=== PATIENT | female | born 1960 | race Caucasian/White ===

== ENCOUNTER → 2016-06-03 | Outpatient (CLI) | payer MEDICARE, OTHER ==
[~2016-06-03] MED LIST: /DULO30CA PO; /METH500TA OR; ACET50TAOT PO; ASPI81TA85 PO; BACL5TA PO; BUPR15TA PO; CYCL10TA PO; CYMB1CAP PO; DULO30CA PO; FURO20TA2 PO; GABA-283 PO; GABA300C3 PO; GABA600T3 OR; IBUP400T PO; KLOR1TAB77 PO; LIDO1OIN2 TOP; LIDO5DIS TOP; LIPI20TA OR; LISI10TA4 OR; LISINOPRIL/HCTZ PO; TIZA2CAP3 PO; TOPI200T OR; TRAM50TA2 OR; VITA50003 PO; astepro
--- NOTE | 2016-06-25 01:36 | ECWPNPC ---
PATIENT NAME: KENTON HUTCHINS : 1960 GENDER: FEMALE VISIT DATE: 06/03/2016 DISCHARGE DATE: 06/03/16 1122 VISIT LOCKED DATE TIME: PHYSICIAN: YUMIKO SWARTZ RESOURCE: YUMIKO SWARTZ REASON FOR APPOINTMENT 1. REVIEW X RAY HISTORY OF PRESENT ILLNESS HISTORY OF PRESENT ILLNESS: PAIN THE PATIENT DESCRIBES THE PAIN... FALL RISK SCREENING: SCREENING :NO FALLS IN THE PAST YEAR TODAY'S VISIT: NOTES: IS STILL HAVING SIGNIFICANT PAIN IN RIGHT SHOULDER. TODAY HAVING BACK SPASMS. RATES PAIN TODAY 5-7/10. HAD FALL ON ICE 05/01/17 - LANDED ON RIGHT SHOULDER. . CURRENT MEDICATIONS TAKING CYMBALTA 60 MG CAPSULE DELAYED RELEASE PARTICLES 1 CAPSULE ORALLY ONCE A DAY TAKING GABAPENTIN 600 MG TABLET 1 CAPSULE ORALLY THREE TIMES A DAY TAKING ASPIR-81 81 MG TABLET DELAYED RELEASE 1 TABLET P.O. ONCE A DAY TAKING LISINOPRIL-HYDROCHLOROTHIAZIDE 12.5-10 MG TABLET 1 TABLET ORALLY ONCE A DAY TAKING LIPITOR 10 MG TABLET 1 TABLET ORALLY ONCE A DAY TAKING TOPAMAX 200 200MG TABLET 1 TAB(S) ORAL ONCE A DAY TAKING FUROSEMIDE 20 MG TABLET 1 TABLET ORALLY ONCE A DAY TAKING MONTELUKAST SODIUM 10 MG TABLET 1 TABLET IN THE EVENING ORALLY ONCE A DAY TAKING VENTOLIN HFA 108 (90 BASE) MCG/ACT AEROSOL SOLUTION 2 PUFFS NEEDED INHALATION EVERY 4 HRS TAKING TRAMADOL HCL 50 MG TABLET 1 -2 TABLET NEEDED ORALLY EVERY 6 HRS MDD=6 CODE D CHRONIC PAIN TAKING SOMA 350 MG TABLET 1 TABLET NEEDED ORALLY BEFORE BEDTIME NOT-TAKING BACLOFEN 10 MG TABLET 1 TABLET WITH FOOD OR MILK ORALLY THREE TIMES A DAY NEEDED NOT-TAKING VALIUM 5 MG TABLET 1 TABLET ORALLY TAKE ONE TAB ON ARRIVAL TO CLINIC FOR PROCEDURE MDD=1, NOTES: 0800 NOT-TAKING PERCOCET 5-325 MG TABLET 2 TABLET ORALLY TAKE 2 TABS ON ARRIVAL TO CLINIC FOR PROCEDURE MDD=2, NOTES: 0800 NOT-TAKING LIDOCAINE 5 % OINTMENT 1 APPLICATION TO AFFECTED AREA NEEDED EXTERNALLY THREE TIMES A DAY, NOTES: 2100 NOT-TAKING CUSTOM DO NOT USE TRAMADOL 50 MG TABLET ONE TAB P.O. THREE TIMES A DAY NOT-TAKING PREMARIN 0.625 MG/GM CREAM 1/2 GRAM VAGINAL TWICE WEEKLY NOT-TAKING METROGEL-VAGINAL 0.75 % GEL 1 APPLICATOR FULL AT BEDTIME VAGINAL ONCE A DAY MEDICATION LIST REVIEWED AND RECONCILED WITH THE PATIENT PAST MEDICAL HISTORY DEPRESSION BACK PAIN, INJURY HTN HYPERLIPIDEMIA OBSTRUCTIVE SLEEP APNEA HX OF ENDOMETRIOSIS AND ABNORMAL PAP SMEARS SEASONAL ALLERGIES ALLERGIES N.K.D.A. SOCIAL HISTORY GENERAL: TOBACCO USE ARE YOU A:NONSMOKER LEARNING BARRIERS / SPECIAL NEEDS ORIENTED TO PLAN OF CARE: PATIENT, PAIN MANAGEMENT PATIENT, ORIENTED TO PLAN OF CARE: PATIENT, PAIN MANAGEMENT PATIENT. NEW PATIENT PAIN DIARY TODAY'S VISITNOTES FROM 0-10, WHAT LEVEL IS YOUR PAIN TODAY?0 PAIN CLINIC PFS, CLERGY, PUBLIC HEALTH REFERRALS PFS REFERRAL NEEDED?NO CLERGY REFERRAL NEEDED?NO PUBLIC HEALTH REFERRAL NEEDED?NO WAS THE PROVIDER NOTIFIED OF ANY PERTINENT INFO?NO PFS REFERRAL NEEDED?NO CLERGY REFERRAL NEEDED?NO PUBLIC HEALTH REFERRAL NEEDED?NO WAS THE PROVIDER NOTIFIED OF ANY PERTINENT INFO?NO REVIEW OF SYSTEMS CONSTITUTIONAL: ANY CHANGE IN YOUR MEDICAL CONDITION? NO . CHILLS NO . FEVER NO . INFECTION: DO YOU HAVE NEW INFECTIONS? NO . DO YOU HAVE HISTORY OF MRSA? NO . MUSCULOSKELETAL: ANY NEW PATTERNS OF PAIN OR NUMBNESS? NO . GASTROENTEROLOGY: ANY NEW CHANGE IN BOWEL CONTROL? NO . GENITOURINARY: ANY NEW CHANGE IN BLADDER CONTROL? NO . IS THERE A CHANCE YOU COULD BE ? NO . HEMATOLOGY/LYMPH: DO YOU TAKE ANY BLOOD THINNERS? (FOR EXAMPLE- COUMADIN, PLAVIX, AGGRENOX, PLATEL, PRADAXA, OR XARELTO) NO . WHEN WAS YOUR LAST DOSE? DATE: TIME: . NEUROLOGY: HAVE YOU FALLEN IN THE PAST 6 MONTHS? YES, 05/02 ON ICE, NOT SEEN, HAD MORE PAIN RIGHT ARM FOR DAYS . ANY NEW EXTREMITY NUMBNESS OR WEAKNESS? NO . CARDIOLOGY: DO YOU HAVE A PACEMAKER OR DEFIBRILLATOR? NO . RESPIRATORY: HAVE YOU BEEN SICK IN THE PAST WEEK? NO . FEVER NO . FLU LIKE SYMPTOMS? NO . COUGH NO . INTEGUMENTARY: DO YOU HAVE ANY RASHES OR OPEN SORES? NO . ALLERGIC/IMMUNO: ARE YOU ALLERGIC TO SHELLFISH OR IV DYE? NO . ANY NEW ALLERGIES? NO . PSYCHIATRIC: DO YOU HAVE THOUGHTS OF HURTING YOURSELF OR SOMEONE ELSE? NO . ARE YOU ABUSED, NEGLECTED, OR IN AN UNSAFE ENVIRONMENT? NO . ENDOCRINOLOGY: ARE YOU DIABETIC? NO . OTHER: DO YOU NEED ANY PRESCRIPTIONS? NO . IF YES, PLEASE LIST: ____ . ANY NEW PROBLEMS WITH YOUR MEDICATIONS? NO . WHEN DID YOU LAST EAT? ____ . WHEN DID YOU LAST DRINK? ____ . WHAT DID YOU LAST DRINK? ____ . NAME OF PERSON DRIVING YOU HOME? ____ . DO YOU HAVE ANY OTHER QUESTIONS OR CONCERNS NO . REVIEWED BY: PROVIDER: YUMIKO FULLER . VITAL SIGNS WT 240 LBS, HT 63 IN, BMI 42.51 INDEX, BP 121/72 MM HG, HR 72 /MIN, RR 16 /MIN, TEMP 98.4 F, OXYGEN SAT % 99, REVIEWED BY: AD. EXAMINATION GENERAL EXAMINATION: PSYCHALERT , ORIENTED X 3 , APPROPRIATE MOOD AND AFFECT , ANXIOUS. LUNGS:CLEAR TO AUSCULTATION BILATERALLY. HEART:HEART RATE REGULAR. MUSCULOSKELETAL:MUSCLE STRENGTH TESTING 5/5 LEFT UPPER EXTREMITIES, 4/5 RIGHT UPPER EXTREMITY SECONDARY TO PAIN WITH MOVEMENT. , TRIGGER POINTS:, ELICITED WITH PALPATION OVER CERVICAL SPINOUS PROCESSES AND ACROSS THE TRAPEZIUS MUSCLES BILATERALLY, WELL ALONG THE THORACIC AND LUMBAR PARAVERTEBRAL MUSCLES.. RESTRICTION OF ROM IS NOTED. . JOINTS:RIGHT , SHOULDER , PAIN , AT REST , AND WITH PALPATION OVER RIGHT AC JOINT WITH RADIATION OF PAIN OVER FOREARM TO THUMB AND FIRST FINGER. ASSESSMENTS MYALGIA - M79.1 (PRIMARY) LOW BACK PAIN - M54.5 PAIN IN RIGHT SHOULDER - M25.511 OTHER CHRONIC PAIN - G89.29 TREATMENT MYALGIA START VALIUM TABLET, 5 MG, 1 TABLET NEEDED, ORALLY, TAKE 1 TAB ONE HR BEFORE AND ONE ON ARRIVAL FOR TEST MDD=2, 1 DOSE(S), 2, REFILLS 0 NOTES: FALLS CARE PLAN: 1. RECOMMEND REMOVING ALL THROW RUGS. 2. RECOMMEND NIGHT LIGHTS 3. RECOMMEND WEARING RUBBER SOLED SHOES AND TO NOT GO BAREFOOT. 4.. ADVISED TO CHANGE POSITION SLOWLY FROM SUPINE TO STANDING TO AVOID DIZZINESS. 5. ADVISED TO USE ASSISTIVE DEVICE SUCH CANE OR WALKER 6. USE LIFELINE SERVICES OR KEEP PORTABLE PHONE READILY AVAILABLE, #128 - SCREENING BMI AND F/U PLAN IN : BMI ABOVE NORMAL TODAY. DISCUSSED WITH PATIENT NUTRITIONAL FOOD CHOICES TO ASSIST WITH WEIGHT LOSS. RECCOMMENDED REDUCING SALT, SUGAR, SODA INTAKE. RECOMMEND INCREASE ACTIVITY TO INCLUDE WALKING ON A REGULAR BASIS. PAIN IN RIGHT SHOULDER [facility] SHOULDER W/O [id number],SUSAN M 06/03/2016 11:06:01 AM > DEGENERATIVE CHANGES PER XRAYS - LOSS OF RANGE OF MOTION. RIGHT SHOULDER NOTES: KEEP WALKING. KEEP BUSY. CONTINUE CURRENT MEDS. PROCEDURE CODES FA211 ESTABILISHED PATIENT [facility] CHARGE G8783 BP SCR PRFRM RCMDD DEFIND SCR INTVL G8730 PAIN ASSESS POS TOOL F/U PLAN DOC 3016F PT SCRND UNHLTHY OH USE 1124F ACP DISCUSS-NO DSCNMKR DOCD 1036F TOBACCO NON-USER 0518F FALL PLAN OF CARE DOCD G8427 DOC MEDS VERIFIED W/PT OR RE G8417 BMI >=30 CALCUATE W/FOLLOWUP 3288F FALL RISK ASSESSMENT DOCD DISPOSITION & COMMUNICATION FOLLOW UP 1 MONTH (REASON: NEEDS AUTH FOR RIGHT SHOULDER MRI) ELECTRONICALLY SIGNED BY MILLER HAGER ON 06/23/2016 AT 06:59 PM EST DISCLAIMER : THIS IS A VISIT SUMMARY EXTRACTED FROM THE [employer] CHART. IT IS NOT A COPY OF THE [employer] PROGRESS NOTE. MTDKimberly
== END ==
LOC: M PAIN 09:40
PROVIDERS: ATTEND Nurse Practitioner Family
DX: Z09 Encounter for follow-up examination after completed treatment for conditions other than malignant neoplasm (principal); G89.29 Other chronic pain; M79.1 Myalgia; M54.5 Low back pain; M25.511 Pain in right shoulder; F32.9 Major depressive disorder, single episode, unspecified; I10 Essential (primary) hypertension; E78.5 Hyperlipidemia, unspecified; G47.33 Obstructive sleep apnea (adult) (pediatric); J30.2 Other seasonal allergic rhinitis; Z79.82 Long term (current) use of aspirin; Z79.891 Long term (current) use of opiate analgesic; Z79.899 Other long term (current) drug therapy

== ENCOUNTER → 2016-07-07 | Outpatient (CLI) | payer MEDICARE ==
[2016-07-07 09:22] LABS: BASO % 1.2 % (0.0-1.0); EOS # 0.1 K/mm3 (0.0-0.50); EOS % 3.1 % (0.0-3.0); LYMPH # 1.3 K/mm3 (1.5-4.5); LYMPH % 27.6 % (24.0-44.0); MEAN CORPUSCULAR HGB CONC 32.8 g/dl (32.0-36.5); MEAN CORPUSCULAR VOLUME 88.2 fl (80.0-96.0); MONO # 0.4 K/mm3 (0.0-0.8); MONO % 8.2 % (0.0-5.0); NEUTROPHILS # 2.6 K/mm3 (1.8-7.7); NEUTROPHILS % 56.2 % (36.0-66.0); RED CELL DISTRIBUTION WIDTH 13.6 % (11.5-14.5); WHITE BLOOD COUNT 4.7 K/mm3 (4.0-10.0)
[2016-07-07 10:04] LABS: ALBUMIN 3.8 GM/DL (3.2-5.2); ALBUMIN/GLOBULIN RATIO 1.09 (1.00-1.93); BILIRUBIN,TOTAL 0.3 MG/DL (0.2-1.0); CALCIUM LEVEL 8.9 MG/DL (8.5-10.1); CREATININE FOR GFR 1.35 MG/DL (0.55-1.02); FREE T4 0.99 NG/DL (0.76-1.46); GLOMERULAR FILTRATION RATE 43.2 (>51); POTASSIUM SERUM 3.6 MEQ/L (3.5-5.1); TOTAL PROTEIN 7.3 GM/DL (6.4-8.2)
== END ==
LOC: M LAB 08:20
PROVIDERS: ATTEND Nurse Practitioner Adult Health
DX: E55.9 Vitamin D deficiency, unspecified (principal); E78.00 Pure hypercholesterolemia, unspecified; F41.9 Anxiety disorder, unspecified; Z79.899 Other long term (current) drug therapy

== ENCOUNTER → 2016-07-11 | Outpatient (CLI) | payer MEDICARE ==
--- NOTE | 2016-07-18 01:10 | ECWPNPC ---
PATIENT NAME: KENTON HUTCHINS : 1960 GENDER: FEMALE VISIT DATE: 07/11/2016 DISCHARGE DATE: 07/11/16 1050 VISIT LOCKED DATE TIME: PHYSICIAN: YUMIKO SWARTZ RESOURCE: YUMIKO SWARTZ REASON FOR APPOINTMENT 1. POST PROCEDURE, R SHOULDER HISTORY OF PRESENT ILLNESS HISTORY OF PRESENT ILLNESS: PAIN THE PATIENT DESCRIBES THE PAIN... FALL RISK SCREENING: SCREENING :NO FALLS IN THE PAST YEAR TODAY'S VISIT: NOTES: RATES PAIN TODAY 5-7/10. DESCRIBES PAIN CONSTANT, ACHING, SHARP AND STABBING, TENDER AND THROBBING. PAIN IS CENTERED AT BASE OF NECK WITH RADIATING TO RIGHT ARM TO HAND. PAIN IS ALSO CENTERD IN LOW BACK WITH RADIATION TO RIGHT LEG TO LEVEL OF FOOT. . CURRENT MEDICATIONS TAKING CYMBALTA 60 MG CAPSULE DELAYED RELEASE PARTICLES 1 CAPSULE ORALLY ONCE A DAY TAKING GABAPENTIN 600 MG TABLET 1 CAPSULE ORALLY THREE TIMES A DAY TAKING ASPIR-81 81 MG TABLET DELAYED RELEASE 1 TABLET P.O. ONCE A DAY TAKING LISINOPRIL-HYDROCHLOROTHIAZIDE 12.5-10 MG TABLET 1 TABLET ORALLY ONCE A DAY TAKING LIPITOR 10 MG TABLET 1 TABLET ORALLY ONCE A DAY TAKING TOPAMAX 200 200MG TABLET 1 TAB(S) ORAL ONCE A DAY TAKING FUROSEMIDE 20 MG TABLET 1 TABLET ORALLY ONCE A DAY TAKING MONTELUKAST SODIUM 10 MG TABLET 1 TABLET IN THE EVENING ORALLY ONCE A DAY TAKING VENTOLIN HFA 108 (90 BASE) MCG/ACT AEROSOL SOLUTION 2 PUFFS NEEDED INHALATION EVERY 4 HRS TAKING TRAMADOL HCL 50 MG TABLET 1 -2 TABLET NEEDED ORALLY EVERY 6 HRS MDD=6 CODE D CHRONIC PAIN TAKING SOMA 350 MG TABLET 1 TABLET NEEDED ORALLY BEFORE BEDTIME TAKING VALIUM 5 MG TABLET 1 TABLET NEEDED ORALLY TAKE 1 TAB ONE HR BEFORE AND ONE ON ARRIVAL FOR TEST MDD=2 NOT-TAKING BACLOFEN 10 MG TABLET 1 TABLET WITH FOOD OR MILK ORALLY THREE TIMES A DAY NEEDED NOT-TAKING VALIUM 5 MG TABLET 1 TABLET ORALLY TAKE ONE TAB ON ARRIVAL TO CLINIC FOR PROCEDURE MDD=1, NOTES: 0800 NOT-TAKING PERCOCET 5-325 MG TABLET 2 TABLET ORALLY TAKE 2 TABS ON ARRIVAL TO CLINIC FOR PROCEDURE MDD=2, NOTES: 0800 NOT-TAKING LIDOCAINE 5 % OINTMENT 1 APPLICATION TO AFFECTED AREA NEEDED EXTERNALLY THREE TIMES A DAY, NOTES: 2100 NOT-TAKING CUSTOM DO NOT USE TRAMADOL 50 MG TABLET ONE TAB P.O. THREE TIMES A DAY NOT-TAKING PREMARIN 0.625 MG/GM CREAM 1/2 GRAM VAGINAL TWICE WEEKLY NOT-TAKING METROGEL-VAGINAL 0.75 % GEL 1 APPLICATOR FULL AT BEDTIME VAGINAL ONCE A DAY MEDICATION LIST REVIEWED AND RECONCILED WITH THE PATIENT PAST MEDICAL HISTORY DEPRESSION BACK PAIN, INJURY HTN HYPERLIPIDEMIA OBSTRUCTIVE SLEEP APNEA HX OF ENDOMETRIOSIS AND ABNORMAL PAP SMEARS SEASONAL ALLERGIES ALLERGIES N.K.D.A. SOCIAL HISTORY GENERAL: TOBACCO USE ARE YOU A:NONSMOKER LEARNING BARRIERS / SPECIAL NEEDS ORIENTED TO PLAN OF CARE: PATIENT, PAIN MANAGEMENT PATIENT, ORIENTED TO PLAN OF CARE: PATIENT, PAIN MANAGEMENT PATIENT. NEW PATIENT PAIN DIARY TODAY'S VISITNOTES FROM 0-10, WHAT LEVEL IS YOUR PAIN TODAY?0 PAIN CLINIC PFS, CLERGY, PUBLIC HEALTH REFERRALS PFS REFERRAL NEEDED?NO CLERGY REFERRAL NEEDED?NO PUBLIC HEALTH REFERRAL NEEDED?NO WAS THE PROVIDER NOTIFIED OF ANY PERTINENT INFO?NO PFS REFERRAL NEEDED?NO CLERGY REFERRAL NEEDED?NO PUBLIC HEALTH REFERRAL NEEDED?NO WAS THE PROVIDER NOTIFIED OF ANY PERTINENT INFO?NO REVIEW OF SYSTEMS CONSTITUTIONAL: ANY CHANGE IN YOUR MEDICAL CONDITION? NO . CHILLS NO . FEVER NO . INFECTION: DO YOU HAVE NEW INFECTIONS? RECENT SINUS INFECTION - . DO YOU HAVE HISTORY OF MRSA? NO . MUSCULOSKELETAL: ANY NEW PATTERNS OF PAIN OR NUMBNESS? NO . GASTROENTEROLOGY: ANY NEW CHANGE IN BOWEL CONTROL? NO . GENITOURINARY: ANY NEW CHANGE IN BLADDER CONTROL? NO . IS THERE A CHANCE YOU COULD BE ? NO . HEMATOLOGY/LYMPH: DO YOU TAKE ANY BLOOD THINNERS? (FOR EXAMPLE- COUMADIN, PLAVIX, AGGRENOX, PLATEL, PRADAXA, OR XARELTO) NO . WHEN WAS YOUR LAST DOSE? DATE: TIME: . NEUROLOGY: HAVE YOU FALLEN IN THE PAST 6 MONTHS? NO . ANY NEW EXTREMITY NUMBNESS OR WEAKNESS? NO . CARDIOLOGY: DO YOU HAVE A PACEMAKER OR DEFIBRILLATOR? NO . RESPIRATORY: HAVE YOU BEEN SICK IN THE PAST WEEK? NO . FEVER NO . FLU LIKE SYMPTOMS? NO . COUGH NO . INTEGUMENTARY: DO YOU HAVE ANY RASHES OR OPEN SORES? NO . ALLERGIC/IMMUNO: ARE YOU ALLERGIC TO SHELLFISH OR IV DYE? NO . ANY NEW ALLERGIES? NO . PSYCHIATRIC: DO YOU HAVE THOUGHTS OF HURTING YOURSELF OR SOMEONE ELSE? NO . ARE YOU ABUSED, NEGLECTED, OR IN AN UNSAFE ENVIRONMENT? NO . ENDOCRINOLOGY: ARE YOU DIABETIC? NO . OTHER: DO YOU NEED ANY PRESCRIPTIONS? YES . IF YES, PLEASE LIST: TRAMADOL . ANY NEW PROBLEMS WITH YOUR MEDICATIONS? NO . WHEN DID YOU LAST EAT? ____ . WHEN DID YOU LAST DRINK? ____ . WHAT DID YOU LAST DRINK? ____ . NAME OF PERSON DRIVING YOU HOME? ____ . DO YOU HAVE ANY OTHER QUESTIONS OR CONCERNS NO . REVIEWED BY: PROVIDER: YUMIKO FULLER . VITAL SIGNS WT 239.2 LBS, HT 63 IN, BMI 42.37 INDEX, BP 138/71 MM HG, HR 75 /MIN, RR 16 /MIN, TEMP 97.8 F, OXYGEN SAT % 96%, NA INITIALS SC 10:21, REVIEWED BY: DANNY. EXAMINATION GENERAL EXAMINATION: PSYCHALERT , ORIENTED X 3 , APPROPRIATE MOOD AND AFFECT , ANXIOUS. LUNGS:CLEAR TO AUSCULTATION BILATERALLY. HEART:HEART RATE REGULAR. MUSCULOSKELETAL:MUSCLE STRENGTH TESTING 5/5 LEFT UPPER EXTREMITIES, 4/5 RIGHT UPPER EXTREMITY SECONDARY TO PAIN WITH MOVEMENT. , TRIGGER POINTS:, ELICITED WITH PALPATION OVER CERVICAL SPINOUS PROCESSES AND ACROSS THE TRAPEZIUS MUSCLES BILATERALLY, WELL ALONG THE THORACIC AND LUMBAR PARAVERTEBRAL MUSCLES.. RESTRICTION OF ROM IS NOTED. . JOINTS:RIGHT , SHOULDER , PAIN , AT REST , AND WITH PALPATION OVER RIGHT AC JOINT WITH RADIATION OF PAIN OVER FOREARM TO THUMB AND FIRST FINGER. ASSESSMENTS MYALGIA - M79.1 (PRIMARY) LOW BACK PAIN - M54.5 PAIN IN RIGHT SHOULDER - M25.511 OTHER CHRONIC PAIN - G89.29 TREATMENT MYALGIA REFILL TRAMADOL HCL TABLET, 50 MG, 1 -2 TABLET NEEDED, ORALLY, EVERY 6 HRS MDD=6 CODE D CHRONIC PAIN, 90 DAYS, 540, REFILLS 0 NOTES: TAKE SOMA ONLY IF HAVING SEVERE SPASM. START PHYSICAL THERAPY FOR RIGHT SHOULDER. CLINICAL NOTES: ISTOP REGISTRY REVIEWED AND DEMNOSTRATES COMPLLIANCE. BRINGS IN MEDICATIONS WHICH IS APPROPRIATE FOR WHAT WAS DISPENSED. [facility] REASON:RT SHOULDER BONE SPURS, PARTIAL TEAR OF RIGHT SUPRASPINATUS TENDON PROCEDURE CODES FA211 ESTABILISHED PATIENT [facility] CHARGE DISPOSITION & COMMUNICATION FOLLOW UP 1 MONTH - HAS TPI SCHEDULED FOR NEXT WEEK ELECTRONICALLY SIGNED BY MILLER HAGER ON 07/14/2016 AT 09:07 AM EDT DISCLAIMER : THIS IS A VISIT SUMMARY EXTRACTED FROM THE [employer] CHART. IT IS NOT A COPY OF THE [employer] PROGRESS NOTE. ALBAN
== END ==
LOC: M PAIN 10:00
PROVIDERS: ATTEND Nurse Practitioner Family
DX: Z09 Encounter for follow-up examination after completed treatment for conditions other than malignant neoplasm (principal); G89.29 Other chronic pain; M79.1 Myalgia; M54.5 Low back pain; M54.2 Cervicalgia; M25.511 Pain in right shoulder; F32.9 Major depressive disorder, single episode, unspecified; I10 Essential (primary) hypertension; E78.5 Hyperlipidemia, unspecified; G47.33 Obstructive sleep apnea (adult) (pediatric); J30.2 Other seasonal allergic rhinitis; Z79.82 Long term (current) use of aspirin; Z79.891 Long term (current) use of opiate analgesic; Z79.899 Other long term (current) drug therapy

== ENCOUNTER → 2016-07-14 | Outpatient (CLI) | payer MEDICARE ==
[~2016-07-14] MED LIST changes: +BUPIVACAINE HCL 0.25% 10 ML VIAL As Ordered ONE; +BUPIVACAINE HCL 0.25% 30 ML VIAL As Ordered ONE; +TRIAMCINOLONE ACETONIDE SUSP 40 MG/ML VIAL (J3301) As Ordered ONE
--- NOTE | 2016-07-19 23:25 | ECWPNPC ---
PATIENT NAME: KENTON HUTCHINS : 1960 GENDER: FEMALE VISIT DATE: 07/14/2016 DISCHARGE DATE: 07/14/16 1209 VISIT LOCKED DATE TIME: PHYSICIAN: SUSU REED RESOURCE: SUSU REED REASON FOR APPOINTMENT 1. R SHOULDER INJ CURRENT MEDICATIONS TAKING CYMBALTA 60 MG CAPSULE DELAYED RELEASE PARTICLES 1 CAPSULE ORALLY ONCE A DAY, NOTES: 07-14-16699 TAKING GABAPENTIN 600 MG TABLET 1 CAPSULE ORALLY THREE TIMES A DAY, NOTES: 07-14-16699 TAKING ASPIR-81 81 MG TABLET DELAYED RELEASE 1 TABLET P.O. ONCE A DAY, NOTES: 07-14-16699 TAKING LISINOPRIL-HYDROCHLOROTHIAZIDE 12.5-10 MG TABLET 1 TABLET ORALLY ONCE A DAY, NOTES: 07-13-162199 TAKING LIPITOR 10 MG TABLET 1 TABLET ORALLY ONCE A DAY, NOTES: 07-13-162199 TAKING TOPAMAX 200 200MG TABLET 1 TAB(S) ORAL ONCE A DAY, NOTES: 07-13-16 TAKING FUROSEMIDE 20 MG TABLET 1 TABLET ORALLY ONCE A DAY, NOTES: 07-13-162199 TAKING MONTELUKAST SODIUM 10 MG TABLET 1 TABLET IN THE EVENING ORALLY ONCE A DAY, NOTES: [id number] TAKING VENTOLIN HFA 108 (90 BASE) MCG/ACT AEROSOL SOLUTION 2 PUFFS NEEDED INHALATION EVERY 4 HRS, NOTES: 07-11-162199 TAKING SOMA 350 MG TABLET 1 TABLET NEEDED ORALLY BEFORE BEDTIME, NOTES: 07-11-16 09 TAKING VALIUM 5 MG TABLET 1 TABLET NEEDED ORALLY TAKE 1 TAB ONE HR BEFORE AND ONE ON ARRIVAL FOR TEST MDD=2, NOTES: 07-11 TAKING TRAMADOL HCL 50 MG TABLET 1 -2 TABLET NEEDED ORALLY EVERY 6 HRS MDD=6 CODE D CHRONIC PAIN, NOTES: 07-13-162199 NOT-TAKING BACLOFEN 10 MG TABLET 1 TABLET WITH FOOD OR MILK ORALLY THREE TIMES A DAY NEEDED NOT-TAKING VALIUM 5 MG TABLET 1 TABLET ORALLY TAKE ONE TAB ON ARRIVAL TO CLINIC FOR PROCEDURE MDD=1, NOTES: 0800 NOT-TAKING PERCOCET 5-325 MG TABLET 2 TABLET ORALLY TAKE 2 TABS ON ARRIVAL TO CLINIC FOR PROCEDURE MDD=2, NOTES: 0800 NOT-TAKING LIDOCAINE 5 % OINTMENT 1 APPLICATION TO AFFECTED AREA NEEDED EXTERNALLY THREE TIMES A DAY, NOTES: 2100 NOT-TAKING CUSTOM DO NOT USE TRAMADOL 50 MG TABLET ONE TAB P.O. THREE TIMES A DAY NOT-TAKING PREMARIN 0.625 MG/GM CREAM 1/2 GRAM VAGINAL TWICE WEEKLY NOT-TAKING METROGEL-VAGINAL 0.75 % GEL 1 APPLICATOR FULL AT BEDTIME VAGINAL ONCE A DAY MEDICATION LIST REVIEWED AND RECONCILED WITH THE PATIENT PAST MEDICAL HISTORY DEPRESSION BACK PAIN, INJURY HTN HYPERLIPIDEMIA OBSTRUCTIVE SLEEP APNEA HX OF ENDOMETRIOSIS AND ABNORMAL PAP SMEARS SEASONAL ALLERGIES VITAL SIGNS WT 239.0 LBS, HT 63 IN, BMI 42.33 INDEX, BP 113/58 MM HG, HR 76 /MIN, RR 18 /MIN, TEMP 96.7 F, OXYGEN SAT % 98, NA INITIALS TL 1052, REVIEWED BY: KG. ASSESSMENTS MYALGIA - M79.1 (PRIMARY) PROCEDURES PN TRIGGER POINT INJECTION WITH STEROIDS PRE PROCEDURE DIAGNOSIS 1. MYALGIA 2. PAIN AT RIGHT SHOULDER AREA AND RIGHT THORACIC AREA POST PROCEDURE DIAGNOSIS 1. MYALGIA 2. PAIN AT RIGHT SHOULDER AREA AND RIGHT THORACIC AREA PROCEDURE TRIGGER POINT INJECTION AT RIGHT SHOULDER AREA AND RIGHT THORACIC AREA SURGEON DR. 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 I EVALUATE THE PATIENT AND REVIEWED THE CHART. THERE IS EVIDENCE OF BANDS OF TISSUE WITH RESTRICTION OF MOVEMENT AND PRESENCE OF TRIGGER POINT AT THE AFFECTED AREA. I WENT OVER THE RISKS, ALTERNATIVES, AND BENEFITS ASSOCIATED WITH THIS PROCEDURE. THE PATIENT WOULD LIKE TO PROCEED AND GIVE CONSENT TO PERFORMED THE PROCEDURE. THE PATIENT DENIES UNEXPLAINABLE WEIGHT LOSS, FEVER, CHILLS, OR NEW CHANGES IN URINARY OR BOWEL CONTROL DESCRIPTION OF PROCEDURE THE PATIENT WAS BROUGHT TO THE PROCEDURE ROOM AND PLACED IN THE SITTING POSITION. THE AREA WAS CLEANED WITH ALCOHOL. THE PROCEDURE WAS DONE USING ASEPTIC STERILE TECHNIQUE. I CHECKED LATERALITY AND THE LEVEL WHERE THE PROCEDURE WAS GOING TO BE PERFORMED WITH THE PATIENT AND THE SUPPORTING STAFF AT THE MOMENT OF THE TIME OUT IN THE PROCEDURE ROOM. USING A 25-GAUGE NEEDLE, TRIGGER POINTS WERE INJECTED AT THE RIGHT SHOULDER AREA AND RIGHT THORACIC AREA WITH A TOTAL OF 40 ML OF BUPIVACAINE 0.25% AND KENALOG 40 MG. THERE WAS NO EVIDENCE OF BLOOD, PARESTHESIA OR CEREBROSPINAL FLUID DURING THE PROCEDURE. THE PATIENT WAS SENT TO THE RECOVERY ROOM. THE PATIENT WAS MOVING THE EXTREMITIES AND DOING WELL. THERE WAS NO COMPLICATION DURING THE PROCEDURE POST PROCEDURE NOTE THE PATIENT WILL BE SEEN IN A FOLLOW UP IN THE NEXT FEW WEEKS. INSTRUCTIONS WERE GIVEN, QUESTIONS WERE ANSWERED, AND THE PATIENT EXPRESSED UNDERSTANDING AND AGREES WITH THE PLAN. I, JULIANNA DENTON, DOCUMENTED THE ABOVE INFORMATION ACTING A SCRIBE FOR DR. REED. I HAVE REVIEWED THE ABOVE DOCUMENT, WRITTEN BY JULIANNA KOHLER AND I VERIFY THAT IT IS ACCURATE PROCEDURE CODES 85935 INJ TRIGGER POINT / MUSC DISPOSITION & COMMUNICATION FOLLOW UP 3 WEEKS ELECTRONICALLY SIGNED BY SUSU REED MD ON 07/19/2016 AT 09:49 PM EDT DISCLAIMER : THIS IS A VISIT SUMMARY EXTRACTED FROM THE [employer] CHART. IT IS NOT A COPY OF THE [employer] PROGRESS NOTE. ALBAN
== END ==
LOC: M PAIN 11:00
PROVIDERS: ATTEND Anesthesiology
DX: G89.29 Other chronic pain (principal); M79.1 Myalgia; M25.511 Pain in right shoulder; M54.6 Pain in thoracic spine; F32.9 Major depressive disorder, single episode, unspecified; I10 Essential (primary) hypertension; E78.5 Hyperlipidemia, unspecified; G47.33 Obstructive sleep apnea (adult) (pediatric); J30.89 Other allergic rhinitis; Z79.82 Long term (current) use of aspirin; Z79.891 Long term (current) use of opiate analgesic; Z79.899 Other long term (current) drug therapy
CPT/HCPCS: 20552; J3301

== ENCOUNTER 2016-07-30 12:15 | Outpatient (RCR) | payer MEDICARE ==
[~2016-07-30 12:15] MED LIST changes: -BUPIVACAINE HCL 0.25% 10 ML VIAL As Ordered ONE; -BUPIVACAINE HCL 0.25% 30 ML VIAL As Ordered ONE; -TRIAMCINOLONE ACETONIDE SUSP 40 MG/ML VIAL (J3301) As Ordered ONE
== END 2016-08-01 ==
LOC: M PT 12:15
PROVIDERS: ATTEND Nurse Practitioner Family
DX: Z51.89 Encounter for other specified aftercare (principal); M25.511 Pain in right shoulder
CPT/HCPCS: 97110; 97162; G8981; G8982

== ENCOUNTER 2016-08-20 12:44 | Outpatient (RCR) | payer MEDICARE ==
[~2016-08-20 12:44] MED LIST changes: +GABA-282 PO; -GABA300C3 PO
== END 2016-08-31 ==
LOC: M PT 12:44
PROVIDERS: ATTEND Nurse Practitioner Family
DX: Z51.89 Encounter for other specified aftercare (principal); M25.511 Pain in right shoulder; M54.5 Low back pain; M79.1 Myalgia; M75.41 Impingement syndrome of right shoulder
CPT/HCPCS: 97110; G8985; G8986

== ENCOUNTER → 2016-08-22 | Outpatient (CLI) | payer MEDICARE ==
--- NOTE | 2016-09-06 00:31 | ECWPNPC ---
PATIENT NAME: KENTON HUTCHINS : 1960 GENDER: FEMALE VISIT DATE: 08/22/2016 DISCHARGE DATE: 08/22/16 1523 VISIT LOCKED DATE TIME: PHYSICIAN: YUMIKO SWARTZ RESOURCE: YUMIKO SWARTZ REASON FOR APPOINTMENT 1. R SHOULDER HISTORY OF PRESENT ILLNESS HISTORY OF PRESENT ILLNESS: PAIN THE PATIENT DESCRIBES THE PAIN... FALL RISK SCREENING: SCREENING :NO FALLS IN THE PAST YEAR TODAY'S VISIT: NOTES: RATES PAIN TODAY -11/10 IS S/P TPI TO SHOULDER AREA WITH STEROIDS ON 07/14/16. NOTES IMPROVEMENTS IN MOVEMENT. IS ATTENDING PHYSICAL THERAPY. HAS IMPROVED ROM HAS FALLEN X 2. . CURRENT MEDICATIONS TAKING CYMBALTA 60 MG CAPSULE DELAYED RELEASE PARTICLES 1 CAPSULE ORALLY ONCE A DAY TAKING GABAPENTIN 600 MG TABLET 1 CAPSULE ORALLY THREE TIMES A DAY TAKING ASPIR-81 81 MG TABLET DELAYED RELEASE 1 TABLET P.O. ONCE A DAY TAKING LISINOPRIL-HYDROCHLOROTHIAZIDE 12.5-10 MG TABLET 1 TABLET ORALLY ONCE A DAY TAKING LIPITOR 10 MG TABLET 1 TABLET ORALLY ONCE A DAY TAKING TOPAMAX 200 200MG TABLET 1 TAB(S) ORAL ONCE A DAY TAKING FUROSEMIDE 20 MG TABLET 1 TABLET ORALLY ONCE A DAY TAKING MONTELUKAST SODIUM 10 MG TABLET 1 TABLET IN THE EVENING ORALLY ONCE A DAY TAKING VENTOLIN HFA 108 (90 BASE) MCG/ACT AEROSOL SOLUTION 2 PUFFS NEEDED INHALATION EVERY 4 HRS TAKING SOMA 350 MG TABLET 1 TABLET NEEDED ORALLY BEFORE BEDTIME TAKING VALIUM 5 MG TABLET 1 TABLET NEEDED ORALLY TAKE 1 TAB ONE HR BEFORE AND ONE ON ARRIVAL FOR TEST MDD=2 TAKING TRAMADOL HCL 50 MG TABLET 1 -2 TABLET NEEDED ORALLY EVERY 6 HRS MDD=6 CODE D CHRONIC PAIN NOT-TAKING BACLOFEN 10 MG TABLET 1 TABLET WITH FOOD OR MILK ORALLY THREE TIMES A DAY NEEDED NOT-TAKING VALIUM 5 MG TABLET 1 TABLET ORALLY TAKE ONE TAB ON ARRIVAL TO CLINIC FOR PROCEDURE MDD=1, NOTES: 0800 NOT-TAKING PERCOCET 5-325 MG TABLET 2 TABLET ORALLY TAKE 2 TABS ON ARRIVAL TO CLINIC FOR PROCEDURE MDD=2, NOTES: 0800 NOT-TAKING LIDOCAINE 5 % OINTMENT 1 APPLICATION TO AFFECTED AREA NEEDED EXTERNALLY THREE TIMES A DAY, NOTES: 2100 NOT-TAKING CUSTOM DO NOT USE TRAMADOL 50 MG TABLET ONE TAB P.O. THREE TIMES A DAY NOT-TAKING PREMARIN 0.625 MG/GM CREAM 1/2 GRAM VAGINAL TWICE WEEKLY NOT-TAKING METROGEL-VAGINAL 0.75 % GEL 1 APPLICATOR FULL AT BEDTIME VAGINAL ONCE A DAY MEDICATION LIST REVIEWED AND RECONCILED WITH THE PATIENT PAST MEDICAL HISTORY DEPRESSION BACK PAIN, INJURY HTN HYPERLIPIDEMIA OBSTRUCTIVE SLEEP APNEA HX OF ENDOMETRIOSIS AND ABNORMAL PAP SMEARS SEASONAL ALLERGIES ALLERGIES N.K.D.A. SOCIAL HISTORY GENERAL: PAIN CLINIC PFS, CLERGY, PUBLIC HEALTH REFERRALS CLERGY REFERRAL NEEDED?NO WAS THE PROVIDER NOTIFIED OF ANY PERTINENT INFO?NO PFS REFERRAL NEEDED?NO PUBLIC HEALTH REFERRAL NEEDED?NO PATIENT: ____. REVIEW OF SYSTEMS CONSTITUTIONAL: ANY CHANGE IN YOUR MEDICAL CONDITION? NO . CHILLS NO . FEVER NO . INFECTION: DO YOU HAVE NEW INFECTIONS? NO . DO YOU HAVE HISTORY OF MRSA? NO . MUSCULOSKELETAL: ANY NEW PATTERNS OF PAIN OR NUMBNESS? NO . GASTROENTEROLOGY: ANY NEW CHANGE IN BOWEL CONTROL? NO . GENITOURINARY: ANY NEW CHANGE IN BLADDER CONTROL? NO . IS THERE A CHANCE YOU COULD BE ? NO . HEMATOLOGY/LYMPH: DO YOU TAKE ANY BLOOD THINNERS? (FOR EXAMPLE- COUMADIN, PLAVIX, AGGRENOX, PLATEL, PRADAXA, OR XARELTO) NO . WHEN WAS YOUR LAST DOSE? DATE: TIME: . NEUROLOGY: HAVE YOU FALLEN IN THE PAST 6 MONTHS? YES, TWICE--FELL DOWN [facility] 08/01, 2ND TIME JUST LOST BALANCE. WAS ECCHYMOTIC ON LEFT SIDE. . ANY NEW EXTREMITY NUMBNESS OR WEAKNESS? NO . CARDIOLOGY: DO YOU HAVE A PACEMAKER OR DEFIBRILLATOR? NO . RESPIRATORY: HAVE YOU BEEN SICK IN THE PAST WEEK? NO . FEVER NO . FLU LIKE SYMPTOMS? NO . COUGH NO . INTEGUMENTARY: DO YOU HAVE ANY RASHES OR OPEN SORES? NO . ALLERGIC/IMMUNO: ARE YOU ALLERGIC TO SHELLFISH OR IV DYE? NO . ANY NEW ALLERGIES? NO . PSYCHIATRIC: DO YOU HAVE THOUGHTS OF HURTING YOURSELF OR SOMEONE ELSE? NO . ARE YOU ABUSED, NEGLECTED, OR IN AN UNSAFE ENVIRONMENT? NO . ENDOCRINOLOGY: ARE YOU DIABETIC? NO . OTHER: DO YOU NEED ANY PRESCRIPTIONS? NO . IF YES, PLEASE LIST: ____ . ANY NEW PROBLEMS WITH YOUR MEDICATIONS? NO . WHEN DID YOU LAST EAT? ____ . WHEN DID YOU LAST DRINK? ____ . WHAT DID YOU LAST DRINK? ____ . NAME OF PERSON DRIVING YOU HOME? ____ . DO YOU HAVE ANY OTHER QUESTIONS OR CONCERNS NO . REVIEWED BY: PROVIDER: YUMIKO FULLER . VITAL SIGNS WT 238.2 LBS, HT 63 IN, BMI 42.19 INDEX, BP 135/68 MM HG, HR 78 /MIN, RR 16 /MIN, TEMP 97.7 F, OXYGEN SAT % 97%, NA INITIALS SC 14:29, REVIEWED BY: AD. EXAMINATION GENERAL EXAMINATION: PSYCHALERT , ORIENTED X 3 , APPROPRIATE MOOD AND AFFECT , ANXIOUS. LUNGS:CLEAR TO AUSCULTATION BILATERALLY. HEART:HEART RATE REGULAR. MUSCULOSKELETAL:MUSCLE STRENGTH TESTING 5/5 LEFT UPPER EXTREMITIES, 5-/5 RIGHT UPPER EXTREMITY SECONDARY TO PAIN WITH MOVEMENT. , TRIGGER POINTS:, ELICITED WITH PALPATION OVER CERVICAL SPINOUS PROCESSES AND ACROSS THE TRAPEZIUS MUSCLES BILATERALLY, WELL ALONG THE THORACIC AND LUMBAR PARAVERTEBRAL MUSCLES.. . JOINTS:RIGHT , SHOULDER , PAIN , AT REST , AND WITH PALPATION OVER RIGHT AC JOINT . AABLE TO ABDUCT RIGHT ARM TO 90 DEGREES TODAY. ASSESSMENTS MYALGIA - M79.1 (PRIMARY) LOW BACK PAIN - M54.5 PAIN IN RIGHT SHOULDER - M25.511 TREATMENT MYALGIA NOTES: CONTINUE EXERCISES. CONTINUE CURRRENT MEDS. PROCEDURE CODES FA211 ESTABILISHED PATIENT [facility] CHARGE G8730 PAIN ASSESS POS TOOL F/U PLAN DOC G8427 DOC MEDS VERIFIED W/PT OR RE DISPOSITION & COMMUNICATION FOLLOW UP 2-3 MONTHS ELECTRONICALLY SIGNED BY MILLER HAGER ON 09/05/2016 AT 02:48 PM EDT DISCLAIMER : THIS IS A VISIT SUMMARY EXTRACTED FROM THE [employer] CHART. IT IS NOT A COPY OF THE [employer] PROGRESS NOTE. ALBAN
== END ==
LOC: M PAIN 14:20
PROVIDERS: ATTEND Nurse Practitioner Family
DX: M79.1 Myalgia (principal); M54.5 Low back pain; M25.511 Pain in right shoulder; Z79.82 Long term (current) use of aspirin; Z79.891 Long term (current) use of opiate analgesic; Z79.899 Other long term (current) drug therapy; I10 Essential (primary) hypertension; E78.5 Hyperlipidemia, unspecified; G47.33 Obstructive sleep apnea (adult) (pediatric); F32.9 Major depressive disorder, single episode, unspecified; J30.2 Other seasonal allergic rhinitis

== ENCOUNTER → 2016-09-03 | Outpatient (CLI) | payer MEDICARE ==
--- NOTE | 2016-09-03 13:31 | REPMRS ---
Patient History The patient states she had a clinical breast exam in 08/2016. Family history of breast cancer in maternal aunt. Benign lumpectomy of the left breast, 1997. Took estrogen for 2 years. Digital Woman Screen Mammo: September 03, 2016 - Exam #: [id number] Bilateral CC and MLO view(s) were taken. Technologist: Kitty Patterson, Technologist Prior study comparison: April 04, 2015, digital woman screen mammo performed at [facility]. February 28, 2014, digital woman screen mammo performed at [facility] [place] [facility]. FINDINGS: There are scattered fibroglandular densities. There has been no change in the appearance of the mammogram from the prior studies. There is a mild amount of residual fibroglandular tissue which is fairly symmetric. There is no interval development of dominant mass, architectural distortion, or clustered microcalcification suggestive of malignancy. ASSESSMENT: BI-RADS/ACR category 1 mammogram. Negative. Recommendation Routine screening mammogram in 1 year (for women over age 40). This mammogram was interpreted with the aid of an FDA-approved computer-aided dectection system. Electronically Signed By: Jimmie Landers MD 09/03/16 0661
== END ==
LOC: M WHC 10:44
PROVIDERS: ATTEND Nurse Practitioner Adult Health
DX: Z12.31 Encounter for screening mammogram for malignant neoplasm of breast (principal)

== ENCOUNTER → 2016-10-21 | Outpatient (CLI) | payer MEDICARE ==
--- NOTE | 2016-10-21 10:40 | REP ---
LEFT SHOULDER SERIES: Three views of the left shoulder are performed and demonstrate no acute fracture or dislocation. There is mild narrowing and spurring at the acromioclavicular joint. IMPRESSION: Mild degenerative changes acromioclavicular joint. Further evaluation may be made with MRI if clinically indicated. Signed by Jimmie Landers MD 10/21/2016 05:01 P
== END ==
LOC: M RAD 10:01
PROVIDERS: ATTEND Nurse Practitioner Adult Health
DX: M25.512 Pain in left shoulder (principal); M19.012 Primary osteoarthritis, left shoulder

== ENCOUNTER → 2016-11-12 | Outpatient (CLI) | payer MEDICARE ==
[~2016-11-12] MED LIST changes: +BACL10TA5 PO; -BACL5TA PO; +VITA1CAP40 PO; -VITA50003 PO
--- NOTE | 2016-12-06 23:33 | ECWPNPC ---
PATIENT NAME: KENTON HUTCHINS : 1960 GENDER: FEMALE VISIT DATE: 11/12/2016 DISCHARGE DATE: 11/12/16 1547 VISIT LOCKED DATE TIME: PHYSICIAN: YUMIKO SWARTZ RESOURCE: YUMIKO SWARTZ REASON FOR APPOINTMENT 1. BACK HISTORY OF PRESENT ILLNESS TODAY'S VISIT: NOTES: RATES PAIN TODAY 5-7/10. DESCRIBES PAIN ASCONSTANT, ACHING, SHARP AND STABBINGSHOOT, TINDER AND SORE. IS HAVING IN MULTIPLE AREAS. HAS HAD HEADACHES THAT LAST FOR 4 DAYS/WEEK. THIS IMPROVES WITH TRAMADOL. . CURRENT MEDICATIONS TAKING CYMBALTA 60 MG CAPSULE DELAYED RELEASE PARTICLES 1 CAPSULE ORALLY ONCE A DAY TAKING GABAPENTIN 600 MG TABLET 1 CAPSULE ORALLY THREE TIMES A DAY TAKING ASPIR-81 81 MG TABLET DELAYED RELEASE 1 TABLET P.O. ONCE A DAY TAKING LISINOPRIL-HYDROCHLOROTHIAZIDE 12.5-10 MG TABLET 1 TABLET ORALLY ONCE A DAY TAKING LIPITOR 10 MG TABLET 1 TABLET ORALLY ONCE A DAY TAKING TOPAMAX 200 200MG TABLET 1 TAB(S) ORAL ONCE A DAY TAKING FUROSEMIDE 20 MG TABLET 1 TABLET ORALLY ONCE A DAY TAKING MONTELUKAST SODIUM 10 MG TABLET 1 TABLET IN THE EVENING ORALLY ONCE A DAY TAKING VENTOLIN HFA 108 (90 BASE) MCG/ACT AEROSOL SOLUTION 2 PUFFS NEEDED INHALATION EVERY 4 HRS TAKING SOMA 350 MG TABLET 1 TABLET NEEDED ORALLY BEFORE BEDTIME TAKING VALIUM 5 MG TABLET 1 TABLET NEEDED ORALLY TAKE 1 TAB ONE HR BEFORE AND ONE ON ARRIVAL FOR TEST MDD=2 TAKING TRAMADOL HCL 50 MG TABLET 1 -2 TABLET NEEDED ORALLY EVERY 6 HRS MDD=6 CODE D CHRONIC PAIN NOT-TAKING BACLOFEN 10 MG TABLET 1 TABLET WITH FOOD OR MILK ORALLY THREE TIMES A DAY NEEDED NOT-TAKING VALIUM 5 MG TABLET 1 TABLET ORALLY TAKE ONE TAB ON ARRIVAL TO CLINIC FOR PROCEDURE MDD=1, NOTES: 0800 NOT-TAKING PERCOCET 5-325 MG TABLET 2 TABLET ORALLY TAKE 2 TABS ON ARRIVAL TO CLINIC FOR PROCEDURE MDD=2, NOTES: 0800 NOT-TAKING LIDOCAINE 5 % OINTMENT 1 APPLICATION TO AFFECTED AREA NEEDED EXTERNALLY THREE TIMES A DAY, NOTES: 2100 NOT-TAKING CUSTOM DO NOT USE TRAMADOL 50 MG TABLET ONE TAB P.O. THREE TIMES A DAY NOT-TAKING PREMARIN 0.625 MG/GM CREAM 1/2 GRAM VAGINAL TWICE WEEKLY NOT-TAKING METROGEL-VAGINAL 0.75 % GEL 1 APPLICATOR FULL AT BEDTIME VAGINAL ONCE A DAY MEDICATION LIST REVIEWED AND RECONCILED WITH THE PATIENT PAST MEDICAL HISTORY DEPRESSION BACK PAIN, INJURY HTN HYPERLIPIDEMIA OBSTRUCTIVE SLEEP APNEA HX OF ENDOMETRIOSIS AND ABNORMAL PAP SMEARS SEASONAL ALLERGIES ALLERGIES N.K.D.A. REVIEW OF SYSTEMS FOLLOW-UP ROS: CARDIOLOGY: NEGATIVE FOR, CHEST PAIN, POSITIVE FOR, LEGS SWELLING . GASTROENTEROLOGY: NO NAUSEA, VOMITING, DIARRHEA, CONSTIPATION, MELENA, HEMATOCHEZIA . HEENT SINUS PRESSURE . MUSCULOSKELETAL POSITIVE FOR, JOINT PAINRIGHT SHOULDER . PSYCHOLOGY: POSITIVE FOR, ANXIETY, HIGH STRESS . PULMONOLOGY: NEGATIVE FOR, COUGH, SHORTNESS OF BREATH . VITAL SIGNS WT 238.4 LBS, HT 63 IN, BMI 42.23 INDEX, BP 160/85 MM HG, HR 84 /MIN, RR 16 /MIN, TEMP 97.0 F, OXYGEN SAT % 96%, NA INITIALS SC 14:27. EXAMINATION GENERAL EXAMINATION: PSYCHALERT , ORIENTED X 3 , APPROPRIATE MOOD AND AFFECT , ANXIOUS. LUNGS:CLEAR TO AUSCULTATION BILATERALLY. HEART:HEART RATE REGULAR. MUSCULOSKELETAL:MUSCLE STRENGTH TESTING 5/5 LEFT UPPER EXTREMITIES, 5-/5 RIGHT UPPER EXTREMITY SECONDARY TO PAIN WITH MOVEMENT. , TRIGGER POINTS:, ELICITED WITH PALPATION OVER CERVICAL SPINOUS PROCESSES AND ACROSS THE TRAPEZIUS MUSCLES BILATERALLY, WELL ALONG THE THORACIC AND LUMBAR PARAVERTEBRAL MUSCLES.. . JOINTS:RIGHT , SHOULDER , PAIN , AT REST , AND WITH PALPATION OVER RIGHT AC JOINT . AABLE TO ABDUCT RIGHT ARM TO 90 DEGREES TODAY. ASSESSMENTS MYALGIA - M79.1 (PRIMARY) LOW BACK PAIN - M54.5 PAIN IN RIGHT SHOULDER - M25.511 TREATMENT MYALGIA TRIGGER POINT 3 + AREAS NOTES: CONTINUE CURRENT MEDS. KEEP ACTIVE. PREVENTIVE MEDICINE TPIS INSTRUCTIONS REVIEWED WITH PT. PROCEDURE CODES FA211 ESTABILISHED PATIENT [facility] CHARGE DISPOSITION & COMMUNICATION FOLLOW UP AFTER INJECTION (REASON: CHECK AUTH FOR TRIGGER POINTS NECK/RIGHT SHOULDER AND BLADE) ELECTRONICALLY SIGNED BY MILLER HAGER ON 12/05/2016 AT 05:49 PM EDT DISCLAIMER : THIS IS A VISIT SUMMARY EXTRACTED FROM THE [employer] CHART. IT IS NOT A COPY OF THE [employer] PROGRESS NOTE. ALBAN
== END ==
LOC: M PAIN 14:20
PROVIDERS: ATTEND Nurse Practitioner Family
DX: M79.1 Myalgia (principal); M54.5 Low back pain; M25.511 Pain in right shoulder; G89.29 Other chronic pain; Z79.82 Long term (current) use of aspirin; Z79.891 Long term (current) use of opiate analgesic; Z79.899 Other long term (current) drug therapy

== ENCOUNTER → 2016-12-03 | Outpatient (CLI) | payer MEDICARE ==
[~2016-12-03] MED LIST changes: +BUPIVACAINE HCL 0.25% 10 ML VIAL As Ordered ONE; +BUPIVACAINE HCL 0.25% 30 ML VIAL As Ordered ONE; +TRIAMCINOLONE ACETONIDE SUSP 40 MG/ML VIAL (J3301) As Ordered ONE
--- NOTE | 2016-12-16 00:35 | ECWPNPC ---
PATIENT NAME: KENTON HUTCHINS : 1960 GENDER: FEMALE VISIT DATE: 12/03/2016 DISCHARGE DATE: 12/03/16930 VISIT LOCKED DATE TIME: PHYSICIAN: SUSU REED RESOURCE: SUSU REED REASON FOR APPOINTMENT 1. TPI RIGHT NECK, RIGHT SHOULDER, RIGHT THORACIC HISTORY OF PRESENT ILLNESS HISTORY OF PRESENT ILLNESS: PAIN THE PATIENT DESCRIBES THE PAIN... SEVERITY - PAIN SCORE OF6/10 FALL RISK SCREENING: SCREENING :NO FALLS IN THE PAST YEAR CURRENT MEDICATIONS TAKING CYMBALTA 60 MG CAPSULE DELAYED RELEASE PARTICLES 1 CAPSULE ORALLY ONCE A DAY, NOTES: 12-02-16899 TAKING GABAPENTIN 600 MG TABLET 1 CAPSULE ORALLY THREE TIMES A DAY, NOTES: 12-02-16699 TAKING ASPIR-81 81 MG TABLET DELAYED RELEASE 1 TABLET P.O. ONCE A DAY, NOTES: 12-02-16899 TAKING LISINOPRIL-HYDROCHLOROTHIAZIDE 12.5-10 MG TABLET 1 TABLET ORALLY ONCE A DAY, NOTES: 12-02-16799 TAKING LIPITOR 10 MG TABLET 1 TABLET ORALLY ONCE A DAY, NOTES: 12-02-162099 TAKING FUROSEMIDE 20 MG TABLET 1 TABLET ORALLY ONCE A DAY, NOTES: 12-02-16799 TAKING MONTELUKAST SODIUM 10 MG TABLET 1 TABLET IN THE EVENING ORALLY ONCE A DAY, NOTES: 12-02-16699 TAKING VENTOLIN HFA 108 (90 BASE) MCG/ACT AEROSOL SOLUTION 2 PUFFS NEEDED INHALATION EVERY 4 HRS, NOTES: 12-02-16799 TAKING SOMA 350 MG TABLET 1 TABLET NEEDED ORALLY BEFORE BEDTIME, NOTES: 12-02-162099 TAKING VALIUM 5 MG TABLET 1 TABLET NEEDED ORALLY TAKE 1 TAB ONE HR BEFORE AND ONE ON ARRIVAL FOR TEST MDD=2, NOTES: NOT IN WHILE TAKING TRAMADOL HCL 50 MG TABLET 1 -2 TABLET NEEDED ORALLY EVERY 6 HRS MDD=6 CODE D CHRONIC PAIN, NOTES: 12-02-16899 TAKING ZONISAMIDE 100 MG CAPSULE 1 CAPSULE ORALLY ONCE A DAY, NOTES: 12-02-16799 NOT-TAKING TOPAMAX 200 200MG TABLET 1 TAB(S) ORAL ONCE A DAY NOT-TAKING BACLOFEN 10 MG TABLET 1 TABLET WITH FOOD OR MILK ORALLY THREE TIMES A DAY NEEDED NOT-TAKING VALIUM 5 MG TABLET 1 TABLET ORALLY TAKE ONE TAB ON ARRIVAL TO CLINIC FOR PROCEDURE MDD=1, NOTES: 0800 NOT-TAKING PERCOCET 5-325 MG TABLET 2 TABLET ORALLY TAKE 2 TABS ON ARRIVAL TO CLINIC FOR PROCEDURE MDD=2, NOTES: 0800 NOT-TAKING LIDOCAINE 5 % OINTMENT 1 APPLICATION TO AFFECTED AREA NEEDED EXTERNALLY THREE TIMES A DAY, NOTES: 2100 NOT-TAKING CUSTOM DO NOT USE TRAMADOL 50 MG TABLET ONE TAB P.O. THREE TIMES A DAY NOT-TAKING PREMARIN 0.625 MG/GM CREAM 1/2 GRAM VAGINAL TWICE WEEKLY NOT-TAKING METROGEL-VAGINAL 0.75 % GEL 1 APPLICATOR FULL AT BEDTIME VAGINAL ONCE A DAY MEDICATION LIST REVIEWED AND RECONCILED WITH THE PATIENT PAST MEDICAL HISTORY DEPRESSION BACK PAIN, INJURY HTN HYPERLIPIDEMIA OBSTRUCTIVE SLEEP APNEA HX OF ENDOMETRIOSIS AND ABNORMAL PAP SMEARS SEASONAL ALLERGIES ALLERGIES N.K.D.A. REVIEW OF SYSTEMS REVIEWED BY: PROVIDER: . CONSTITUTIONAL: ANY CHANGE IN YOUR MEDICAL CONDITION? NO . CHILLS NO . FEVER NO . INFECTION: DO YOU HAVE NEW INFECTIONS? NO . DO YOU HAVE HISTORY OF MRSA? NO . MUSCULOSKELETAL: ANY NEW PATTERNS OF PAIN OR NUMBNESS? NO . GASTROENTEROLOGY: ANY NEW CHANGE IN BOWEL CONTROL? NO . GENITOURINARY: ANY NEW CHANGE IN BLADDER CONTROL? NO . IS THERE A CHANCE YOU COULD BE ? NO . HEMATOLOGY/LYMPH: DO YOU TAKE ANY BLOOD THINNERS? (FOR EXAMPLE- COUMADIN, PLAVIX, AGGRENOX, PLATEL, PRADAXA, OR XARELTO) NO . WHEN WAS YOUR LAST DOSE? DATE: TIME: . NEUROLOGY: HAVE YOU FALLEN IN THE PAST 6 MONTHS? NO . ANY NEW EXTREMITY NUMBNESS OR WEAKNESS? NO . CARDIOLOGY: DO YOU HAVE A PACEMAKER OR DEFIBRILLATOR? NO . RESPIRATORY: HAVE YOU BEEN SICK IN THE PAST WEEK? NO . FEVER NO . FLU LIKE SYMPTOMS? NO . COUGH NO . INTEGUMENTARY: DO YOU HAVE ANY RASHES OR OPEN SORES? NO . ALLERGIC/IMMUNO: ARE YOU ALLERGIC TO SHELLFISH OR IV DYE? NO . ANY NEW ALLERGIES? NO . PSYCHIATRIC: DO YOU HAVE THOUGHTS OF HURTING YOURSELF OR SOMEONE ELSE? NO . ARE YOU ABUSED, NEGLECTED, OR IN AN UNSAFE ENVIRONMENT? NO . ENDOCRINOLOGY: ARE YOU DIABETIC? NO . OTHER: DO YOU NEED ANY PRESCRIPTIONS? NO . IF YES, PLEASE LIST: ____ . ANY NEW PROBLEMS WITH YOUR MEDICATIONS? NO . WHEN DID YOU LAST EAT? ____ . WHEN DID YOU LAST DRINK? ____ . WHAT DID YOU LAST DRINK? ____ . NAME OF PERSON DRIVING YOU HOME? ____ . DO YOU HAVE ANY OTHER QUESTIONS OR CONCERNS NO . VITAL SIGNS WT 235 LBS, HT 63 IN, BMI 41.62 INDEX, BP 113/64 MM HG, HR 69 /MIN, RR 18 /MIN, TEMP 97.6 F, OXYGEN SAT % 97%, NA INITIALS AW 0853. ASSESSMENTS MYALGIA - M79.1 (PRIMARY) PROCEDURES PN TRIGGER POINT INJECTION WITH STEROIDS PRE PROCEDURE DIAGNOSIS 1. MYALGIA 2. PAIN AT RIGHT NECK, RIGHT SHOULDER AND RIGHT THORACIC POST PROCEDURE DIAGNOSIS 1. MYALGIA 2. PAIN AT RIGHT NECK, RIGHT SHOULDER, AND RIGHT THORACIC PROCEDURE TRIGGER POINT INJECTION AT THE RIGHT NECK, RIGHT SHOULDER AND RIGHT THORACIC AREAS SURGEON DR. SUSU REED SKEIN YARN DYER NONE ANESTHESIA LOCAL PRE PROCEDURE NOTE THE PATIENT HAS A HISTORY OF CHRONIC PAIN AT THE RIGHT NECK, RIGHT SHOULDER AND RIGHT THORACIC AREAS. I EVALUATE THE PATIENT AND REVIEWED THE CHART. THERE IS EVIDENCE OF BANDS OF TISSUE WITH RESTRICTION OF MOVEMENT AND PRESENCE OF TRIGGER POINT AT THE AFFECTED AREA. I WENT OVER THE RISKS, ALTERNATIVES, AND BENEFITS ASSOCIATED WITH THIS PROCEDURE. THE PATIENT WOULD LIKE TO PROCEED AND GIVE CONSENT TO PERFORMED THE PROCEDURE. THE PATIENT DENIES UNEXPLAINABLE WEIGHT LOSS, FEVER, CHILLS, OR NEW CHANGES IN URINARY OR BOWEL CONTROL DESCRIPTION OF PROCEDURE THE PATIENT WAS BROUGHT TO THE PROCEDURE ROOM AND PLACED IN THE SITTING POSITION. THE AREA WAS CLEANED WITH ALCOHOL. THE PROCEDURE WAS DONE USING ASEPTIC STERILE TECHNIQUE. I CHECKED LATERALITY AND THE LEVEL WHERE THE PROCEDURE WAS GOING TO BE PERFORMED WITH THE PATIENT AND THE SUPPORTING STAFF AT THE MOMENT OF THE TIME OUT IN THE PROCEDURE ROOM. USING A 25-GAUGE NEEDLE, TRIGGER POINTS WERE INJECTED AT THE RIGHT NECK, RIGHT SHOULDER AND RIGHT THORACIC AREAS WITH A TOTAL OF 40 ML OF BUPIVACAINE 0.25% AND KENALOG 40 MG. THERE WAS NO EVIDENCE OF BLOOD, PARESTHESIA OR CEREBROSPINAL FLUID DURING THE PROCEDURE. THE PATIENT WAS SENT TO THE RECOVERY ROOM. THE PATIENT WAS MOVING THE EXTREMITIES AND DOING WELL. THERE WAS NO COMPLICATION DURING THE PROCEDURE POST PROCEDURE NOTE THE PATIENT WILL BE SEEN IN A FOLLOW UP IN THE NEXT FEW WEEKS. INSTRUCTIONS WERE GIVEN, QUESTIONS WERE ANSWERED, AND THE PATIENT EXPRESSED UNDERSTANDING AND AGREES WITH THE PLAN. I JULIANNA DENTON DOCUMENTED THE ABOVE INFORMATION ACTING A AUDIT MACHINE OPERATOR FOR DR. REED. I HAVE REVIEW THE ABOVE DOCUMENT WRITTEN BY JULIANNA KOHLER AND I VERIFY THAT IS IT ACCURATE. PROCEDURE CODES 30506 INJECT TRIGGER POINTS 3/> DISPOSITION & COMMUNICATION FOLLOW UP 3 WEEKS ELECTRONICALLY SIGNED BY SUSU REED MD ON 12/15/2016 AT 07:58 PM EDT DISCLAIMER : THIS IS A VISIT SUMMARY EXTRACTED FROM THE Dr. [employer] CHART. IT IS NOT A COPY OF THE Dr. [employer] PROGRESS NOTE. ALBAN
== END ==
LOC: M PAIN 08:30
PROVIDERS: ATTEND Anesthesiology
DX: G89.29 Other chronic pain (principal); M54.2 Cervicalgia; M25.511 Pain in right shoulder; M54.6 Pain in thoracic spine; M79.1 Myalgia; F32.9 Major depressive disorder, single episode, unspecified; I10 Essential (primary) hypertension; E78.5 Hyperlipidemia, unspecified; G47.33 Obstructive sleep apnea (adult) (pediatric); J30.2 Other seasonal allergic rhinitis; Z79.82 Long term (current) use of aspirin; Z79.899 Other long term (current) drug therapy
CPT/HCPCS: 20553; J3301

== ENCOUNTER → 2016-12-17 | Outpatient (CLI) | payer MEDICARE ==
[~2016-12-17] MED LIST changes: -BUPIVACAINE HCL 0.25% 10 ML VIAL As Ordered ONE; -BUPIVACAINE HCL 0.25% 30 ML VIAL As Ordered ONE; -TRIAMCINOLONE ACETONIDE SUSP 40 MG/ML VIAL (J3301) As Ordered ONE
--- NOTE | 2017-01-01 00:45 | ECWPNPC ---
PATIENT NAME: KENTON HUTCHINS : 1960 GENDER: FEMALE VISIT DATE: 12/17/2016 DISCHARGE DATE: 12/17/16 1120 VISIT LOCKED DATE TIME: PHYSICIAN: YUMIKO SWARTZ RESOURCE: YUMIKO SWARTZ REASON FOR APPOINTMENT 1. POST TPI HISTORY OF PRESENT ILLNESS HISTORY OF PRESENT ILLNESS: PAIN THE PATIENT DESCRIBES THE PAIN... FALL RISK SCREENING: SCREENING :NO FALLS IN THE PAST YEAR TODAY'S VISIT: NOTES: HAD TPI TO NECK SHOULDERS AND LOW BACK WITH SIGNIFICANT IMPROVEMENT. PAIN LEVEL PRIOR TO INJECTION -11/10, POST INJECTION -06/13 AND THIS HAS LASTED FOR MORE THAN 2 WEEKS. HAS BEEN ABLE TO BE MORE ACTIVE AN D TO USE LESS PAIN MEDICCATION. HAD SOME SORENESS AFTER INJECTION AND HAD SOME BRUISING. CURRENTLY IS HAVING HEADACHE 4-5 DAYS PER WEEK. PAIN STARTS AT THE BASE OF THE BEAD AND MOVES TO THE VERTEX AND LAST 2-3 HOURS, OCCIPITAL BLOCK HAS HELPED FOR THIS IN THE PAST. CURRENT MEDICATIONS TAKING CYMBALTA 60 MG CAPSULE DELAYED RELEASE PARTICLES 1 CAPSULE ORALLY ONCE A DAY TAKING GABAPENTIN 600 MG TABLET 1 CAPSULE ORALLY THREE TIMES A DAY TAKING ASPIR-81 81 MG TABLET DELAYED RELEASE 1 TABLET P.O. ONCE A DAY TAKING LISINOPRIL-HYDROCHLOROTHIAZIDE 12.5-10 MG TABLET 1 TABLET ORALLY ONCE A DAY TAKING LIPITOR 10 MG TABLET 1 TABLET ORALLY ONCE A DAY TAKING FUROSEMIDE 20 MG TABLET 1 TABLET ORALLY ONCE A DAY TAKING MONTELUKAST SODIUM 10 MG TABLET 1 TABLET IN THE EVENING ORALLY ONCE A DAY TAKING VENTOLIN HFA 108 (90 BASE) MCG/ACT AEROSOL SOLUTION 2 PUFFS NEEDED INHALATION EVERY 4 HRS TAKING SOMA 350 MG TABLET 1 TABLET NEEDED ORALLY BEFORE BEDTIME TAKING VALIUM 5 MG TABLET 1 TABLET NEEDED ORALLY TAKE 1 TAB ONE HR BEFORE AND ONE ON ARRIVAL FOR TEST MDD=2 TAKING TRAMADOL HCL 50 MG TABLET 1 -2 TABLET NEEDED ORALLY EVERY 6 HRS MDD=6 CODE D CHRONIC PAIN TAKING ZONISAMIDE 100 MG CAPSULE 1 CAPSULE ORALLY ONCE A DAY NOT-TAKING TOPAMAX 200 200MG TABLET 1 TAB(S) ORAL ONCE A DAY NOT-TAKING BACLOFEN 10 MG TABLET 1 TABLET WITH FOOD OR MILK ORALLY THREE TIMES A DAY NEEDED NOT-TAKING VALIUM 5 MG TABLET 1 TABLET ORALLY TAKE ONE TAB ON ARRIVAL TO CLINIC FOR PROCEDURE MDD=1, NOTES: 0800 NOT-TAKING PERCOCET 5-325 MG TABLET 2 TABLET ORALLY TAKE 2 TABS ON ARRIVAL TO CLINIC FOR PROCEDURE MDD=2, NOTES: 0800 NOT-TAKING LIDOCAINE 5 % OINTMENT 1 APPLICATION TO AFFECTED AREA NEEDED EXTERNALLY THREE TIMES A DAY, NOTES: 2100 NOT-TAKING CUSTOM DO NOT USE TRAMADOL 50 MG TABLET ONE TAB P.O. THREE TIMES A DAY NOT-TAKING PREMARIN 0.625 MG/GM CREAM 1/2 GRAM VAGINAL TWICE WEEKLY NOT-TAKING METROGEL-VAGINAL 0.75 % GEL 1 APPLICATOR FULL AT BEDTIME VAGINAL ONCE A DAY MEDICATION LIST REVIEWED AND RECONCILED WITH THE PATIENT PAST MEDICAL HISTORY DEPRESSION BACK PAIN, INJURY HTN HYPERLIPIDEMIA OBSTRUCTIVE SLEEP APNEA HX OF ENDOMETRIOSIS AND ABNORMAL PAP SMEARS SEASONAL ALLERGIES ALLERGIES N.K.D.A. 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 SPOKEN:[place] LEARNING BARRIERS / SPECIAL NEEDS CHANGE FROM LAST VISIT?NO BARRIERS TO LEARNING?NO HEARING IMPAIRED?NO VISION IMPAIRED?YES :CORRECTIVE LENSES COGNITIVELY IMPAIRED?NO READINESS TO LEARN?YES LEARNING PREFERENCES?NO LEARNING CAPABILITIES PRESENT?YES EMOTIONAL BARRIERS?NO SPECIAL DEVICES?NO COMMISSION SPECIALIST NEEDED?NO PAIN CLINIC PFS, CLERGY, PUBLIC HEALTH REFERRALS PFS REFERRAL NEEDED?NO CLERGY REFERRAL NEEDED?NO PUBLIC HEALTH REFERRAL NEEDED?NO WAS THE PROVIDER NOTIFIED OF ANY PERTINENT INFO?NO HAS THE PATIENT BEEN EDUCATED REGARDING HIS/HER PLAN OF CARE?YES HAS THE PATIENT BEEN EDUCATED REGARDING PAIN, THE RISK FOR PAIN, THE IMPORTANCE OF EFFECTIVE PAIN MANAGEMENT, AND THE PAIN ASSESSMENT PROCESS?YES PATIENT: ____. REVIEW OF SYSTEMS REVIEWED BY: PROVIDER: YUMIKO FULLER . CONSTITUTIONAL: ANY CHANGE IN YOUR MEDICAL CONDITION? NO . CHILLS NO . FEVER NO . INFECTION: DO YOU HAVE NEW INFECTIONS? NO . DO YOU HAVE HISTORY OF MRSA? NO . MUSCULOSKELETAL: ANY NEW PATTERNS OF PAIN OR NUMBNESS? NO . GASTROENTEROLOGY: ANY NEW CHANGE IN BOWEL CONTROL? NO . GENITOURINARY: ANY NEW CHANGE IN BLADDER CONTROL? NO . IS THERE A CHANCE YOU COULD BE ? NO . HEMATOLOGY/LYMPH: DO YOU TAKE ANY BLOOD THINNERS? (FOR EXAMPLE- COUMADIN, PLAVIX, AGGRENOX, PLATEL, PRADAXA, OR XARELTO) NO . WHEN WAS YOUR LAST DOSE? DATE: TIME: . NEUROLOGY: HAVE YOU FALLEN IN THE PAST 6 MONTHS? YES, AUGUST . ANY NEW EXTREMITY NUMBNESS OR WEAKNESS? NO . CARDIOLOGY: DO YOU HAVE A PACEMAKER OR DEFIBRILLATOR? NO . RESPIRATORY: HAVE YOU BEEN SICK IN THE PAST WEEK? NO . FEVER NO . FLU LIKE SYMPTOMS? NO . COUGH NO . INTEGUMENTARY: DO YOU HAVE ANY RASHES OR OPEN SORES? NO . ALLERGIC/IMMUNO: ARE YOU ALLERGIC TO SHELLFISH OR IV DYE? NO . ANY NEW ALLERGIES? NO . PSYCHIATRIC: DO YOU HAVE THOUGHTS OF HURTING YOURSELF OR SOMEONE ELSE? NO . ARE YOU ABUSED, NEGLECTED, OR IN AN UNSAFE ENVIRONMENT? NO . ENDOCRINOLOGY: ARE YOU DIABETIC? NO . OTHER: DO YOU NEED ANY PRESCRIPTIONS? NO . IF YES, PLEASE LIST: ____ . ANY NEW PROBLEMS WITH YOUR MEDICATIONS? NO . WHEN DID YOU LAST EAT? ____ . WHEN DID YOU LAST DRINK? ____ . WHAT DID YOU LAST DRINK? ____ . NAME OF PERSON DRIVING YOU HOME? ____ . DO YOU HAVE ANY OTHER QUESTIONS OR CONCERNS NO . VITAL SIGNS WT 236 LBS, HT 63 IN, BMI 41.80 INDEX, BP 125/71 MM HG, HR 84 /MIN, RR 16 /MIN, TEMP 97.2 F, OXYGEN SAT % 97%, NA INITIALS SC 10:15, REVIEWED BY: CS. EXAMINATION GENERAL EXAMINATION: PSYCHALERT , ORIENTED X 3 , APPROPRIATE MOOD AND AFFECT SMILING AND TALKATIVE. LUNGS:CLEAR TO AUSCULTATION BILATERALLY. HEART:HEART RATE REGULAR. MUSCULOSKELETAL:MUSCLE STRENGTH TESTING 5/5 BILATERAL UPPER EXTREMITIES. POINT TENDERNESS OVER OCCIPITAL NOTCH AND OCCIPITAL REGION. SOME RESTRICTION WITH NECK FLEXION AND ROTATION. GRIPSTRENGTH EQUAL AND STRONG. JOINTS:RIGHT , SHOULDER , PAIN , AT REST , AND WITH PALPATION OVER RIGHT AC JOINT . AABLE TO ABDUCT RIGHT ARM TO 90 DEGREES TODAY. ASSESSMENTS MYALGIA - M79.1 (PRIMARY) PAIN IN RIGHT SHOULDER - M25.511 BILATERAL OCCIPITAL NEURALGIA - M54.81 TREATMENT MYALGIA YUMIKO CARRENO 12/17/2016 11:05:11 AM > BILATERAL NOTES: CALL WHEN SCRIPTS NEEDED, ISTOP REGISTRY REVIEWED AND DEMNOSTRATES COMPLLIANCE. BRINGS IN MEDICATIONS WHICH IS APPROPRIATE FOR WHAT WAS DISPENSED. PREVENTIVE MEDICINE PAIN CLINIC TEACHING: PROCEDURE TEACHING PRE-PROCEDURE TEACHING DONE AND PATIENT VERBALIZES UNDERSTANDING.. PROCEDURE CODES FA211 ESTABILISHED PATIENT [facility] FACILITY CHARGE G8730 PAIN ASSESS POS TOOL F/U PLAN DOC G8427 DOC MEDS VERIFIED W/PT OR RE DISPOSITION & COMMUNICATION FOLLOW UP AFTER INJECTION (REASON: CHECK MEDICARE AUTH FOR OCCIPITAL NERVE BLOCK) ELECTRONICALLY SIGNED BY MILLER HAGER ON 12/31/2016 AT 06:57 PM EDT DISCLAIMER : THIS IS A VISIT SUMMARY EXTRACTED FROM THE [employer] CHART. IT IS NOT A COPY OF THE [employer] PROGRESS NOTE. VANESSAD
== END ==
LOC: M PAIN 10:15
PROVIDERS: ATTEND Nurse Practitioner Family
DX: M79.1 Myalgia (principal); M25.511 Pain in right shoulder; M54.81 Occipital neuralgia; I10 Essential (primary) hypertension; E78.5 Hyperlipidemia, unspecified; G47.33 Obstructive sleep apnea (adult) (pediatric); J30.9 Allergic rhinitis, unspecified; Z79.82 Long term (current) use of aspirin; Z79.891 Long term (current) use of opiate analgesic; Z79.899 Other long term (current) drug therapy; Z87.891 Personal history of nicotine dependence

== ENCOUNTER → 2017-01-19 | Outpatient (CLI) | payer MEDICARE ==
[2017-01-19 09:42] LABS: BASO % 0.7 % (0.0-1.0); EOS # 0.1 K/mm3 (0.0-0.50); EOS % 2.8 % (0.0-3.0); LARGE UNSTAINED CELL # 0.1 K/mm3 (0.0-0.4); LARGE UNSTAINED CELL % 2.6 % (0.0-4.0); LYMPH # 1.1 K/mm3 (1.5-4.5); LYMPH % 22.2 % (24.0-44.0); MEAN CORPUSCULAR HEMOGLOBIN 30.5 pg (27.0-33.0); MEAN CORPUSCULAR HGB CONC 34.5 g/dl (32.0-36.5); MEAN CORPUSCULAR VOLUME 88.3 fl (80.0-96.0); MONO # 0.4 K/mm3 (0.0-0.8); MONO % 7.4 % (0.0-5.0); NEUTROPHILS # 3.1 K/mm3 (1.8-7.7); NEUTROPHILS % 64.3 % (36.0-66.0); PLATELET COUNT, AUTOMATED 221 k/mm3 (150-450); RED CELL DISTRIBUTION WIDTH 13.7 % (11.5-14.5); WHITE BLOOD COUNT 4.8 K/mm3 (4.0-10.0)
[2017-01-19 10:10] LABS: ALBUMIN 3.6 GM/DL (3.2-5.2); ALBUMIN/GLOBULIN RATIO 1.06 (1.00-1.93); BILIRUBIN,TOTAL 0.3 MG/DL (0.2-1.0); CALCIUM LEVEL 8.9 MG/DL (8.5-10.1); CREATININE FOR GFR 1.3 MG/DL (0.55-1.02); FREE T4 0.97 NG/DL (0.76-1.46); GLOMERULAR FILTRATION RATE 44.9 (>51); POTASSIUM SERUM 4.3 MEQ/L (3.5-5.1)
== END ==
LOC: M LAB 08:12
PROVIDERS: ATTEND Nurse Practitioner Adult Health
DX: E78.1 Pure hyperglyceridemia (principal); E66.01 Morbid (severe) obesity due to excess calories; F32.9 Major depressive disorder, single episode, unspecified; E78.00 Pure hypercholesterolemia, unspecified; E55.9 Vitamin D deficiency, unspecified; Z79.899 Other long term (current) drug therapy

== ENCOUNTER → 2017-01-22 | Outpatient (CLI) | payer MEDICARE ==
--- NOTE | 2017-01-22 16:18 | REP ---
Left hip five views: There are small osteophytes at the medial joint line and at the upper lower poles of the patella without joint space narrowing. This is compatible with mild osteoarthritis. The lateral compartment is unremarkable. Mineralization is normal. No calcifications. There is no effusion. Impression: Mild medial compartment and mild patellofemoral compartment osteoarthritis. Signed by Jimmie Martinez MD 01/22/2017 04:09 P
== END ==
LOC: M RAD 11:02
PROVIDERS: ATTEND Physician Assistant Medical
DX: M17.12 Unilateral primary osteoarthritis, left knee (principal)

== ENCOUNTER → 2017-02-16 | Outpatient (CLI) | payer MEDICARE ==
[~2017-02-16] MED LIST changes: +BUPIVACAINE HCL 0.25% 10 ML VIAL As Ordered ONE; +BUPIVACAINE HCL 0.25% 30 ML VIAL As Ordered ONE; +TRIAMCINOLONE ACETONIDE SUSP 40 MG/ML VIAL (J3301) As Ordered ONE; +diazePAM 5 MG TAB As Ordered ONE; +oxyCODONE 5MG TAB As Ordered ONE
--- NOTE | 2017-02-22 23:50 | ECWPNPC ---
PATIENT NAME: KENTON HUTCHINS : 1960 GENDER: FEMALE VISIT DATE: 02/16/2017 DISCHARGE DATE: 02/16/17 1207 VISIT LOCKED DATE TIME: PHYSICIAN: SUSU REED RESOURCE: SUSU REED REASON FOR APPOINTMENT 1. OCCIPITAL NB HISTORY OF PRESENT ILLNESS HISTORY OF PRESENT ILLNESS: PAIN THE PATIENT DESCRIBES THE PAIN... FALL RISK SCREENING: SCREENING :NO FALLS IN THE PAST YEAR CURRENT MEDICATIONS TAKING CYMBALTA 60 MG CAPSULE DELAYED RELEASE PARTICLES 1 CAPSULE ORALLY ONCE A DAY, NOTES: 02/16/17699 TAKING GABAPENTIN 600 MG TABLET 1 CAPSULE ORALLY THREE TIMES A DAY, NOTES: 02/16/17699 TAKING ASPIR-81 81 MG TABLET DELAYED RELEASE 1 TABLET P.O. ONCE A DAY, NOTES: 02/16/17699 TAKING LIPITOR 10 MG TABLET 1 TABLET ORALLY ONCE A DAY, NOTES: 02/15/172099 TAKING FUROSEMIDE 20 MG TABLET 1 TABLET ORALLY ONCE A DAY, NOTES: 02/16/17699 TAKING MONTELUKAST SODIUM 10 MG TABLET 1 TABLET IN THE EVENING ORALLY ONCE A DAY, NOTES: 02/15/172099 TAKING VENTOLIN HFA 108 (90 BASE) MCG/ACT AEROSOL SOLUTION 2 PUFFS NEEDED INHALATION EVERY 4 HRS, NOTES: 02/15/172099 TAKING SOMA 350 MG TABLET 1 TABLET NEEDED ORALLY BEFORE BEDTIME, NOTES: 02/15/172099 TAKING VALIUM 5 MG TABLET 1 TABLET NEEDED ORALLY TAKE 1 TAB ONE HR BEFORE AND ONE ON ARRIVAL FOR TEST MDD=2, NOTES: NONE LATELY TAKING ZONISAMIDE 100 MG CAPSULE 1 CAPSULE ORALLY ONCE A DAY, NOTES: 02/15/172099 TAKING TRAMADOL HCL 50 MG TABLET 1 -2 TABLET NEEDED ORALLY EVERY 6 HRS MDD=6 CODE D CHRONIC PAIN, NOTES: 02/15 TAKING LISINOPRIL 10 MG TABLET 1 TABLET ORALLY ONCE A DAY, NOTES: 02/15 NOT-TAKING LISINOPRIL-HYDROCHLOROTHIAZIDE 12.5-10 MG TABLET 1 TABLET ORALLY ONCE A DAY UNKNOWN TOPAMAX 200 200MG TABLET 1 TAB(S) ORAL ONCE A DAY UNKNOWN BACLOFEN 10 MG TABLET 1 TABLET WITH FOOD OR MILK ORALLY THREE TIMES A DAY NEEDED UNKNOWN VALIUM 5 MG TABLET 1 TABLET ORALLY TAKE ONE TAB ON ARRIVAL TO CLINIC FOR PROCEDURE MDD=1, NOTES: 0800 UNKNOWN PERCOCET 5-325 MG TABLET 2 TABLET ORALLY TAKE 2 TABS ON ARRIVAL TO CLINIC FOR PROCEDURE MDD=2, NOTES: 0800 UNKNOWN LIDOCAINE 5 % OINTMENT 1 APPLICATION TO AFFECTED AREA NEEDED EXTERNALLY THREE TIMES A DAY, NOTES: 2100 UNKNOWN CUSTOM DO NOT USE TRAMADOL 50 MG TABLET ONE TAB P.O. THREE TIMES A DAY UNKNOWN PREMARIN 0.625 MG/GM CREAM 1/2 GRAM VAGINAL TWICE WEEKLY UNKNOWN METROGEL-VAGINAL 0.75 % GEL 1 APPLICATOR FULL AT BEDTIME VAGINAL ONCE A DAY MEDICATION LIST REVIEWED AND RECONCILED WITH THE PATIENT PAST MEDICAL HISTORY DEPRESSION BACK PAIN, INJURY HTN HYPERLIPIDEMIA OBSTRUCTIVE SLEEP APNEA HX OF ENDOMETRIOSIS AND ABNORMAL PAP SMEARS SEASONAL ALLERGIES ALLERGIES N.K.D.A. SURGICAL HISTORY PARTIAL HYSTERECTOMY 1994 BREAST BIOPSY BENIGN TUBAL LIGATION 1983 RIGHT KNEE SURGERY SOCIAL HISTORY GENERAL: TOBACCO USE ARE YOU A:FORMER SMOKER HOW LONG HAS IT BEEN SINCE YOU LAST SMOKED?1-5 YEARS [employer] [id number] WOR[employer]IP LANGUAGE LANGUAGES SPOKEN:MALAY LEARNING BARRIERS / SPECIAL NEEDS CHANGE FROM LAST VISIT?NO BARRIERS TO LEARNING?NO HEARING IMPAIRED?NO VISION IMPAIRED?YES :CORRECTIVE LENSES COGNITIVELY IMPAIRED?NO READINESS TO LEARN?YES LEARNING PREFERENCES?NO LEARNING CAPABILITIES PRESENT?YES EMOTIONAL BARRIERS?NO SPECIAL DEVICES?NO FLAP PRESSER NEEDED?NO PAIN CLINIC PFS, CLERGY, PUBLIC HEALTH REFERRALS PFS REFERRAL NEEDED?NO CLERGY REFERRAL NEEDED?NO PUBLIC HEALTH REFERRAL NEEDED?NO WAS THE PROVIDER NOTIFIED OF ANY PERTINENT INFO?NO HAS THE PATIENT BEEN EDUCATED REGARDING HIS/HER PLAN OF CARE?YES HAS THE PATIENT BEEN EDUCATED REGARDING PAIN, THE RISK FOR PAIN, THE IMPORTANCE OF EFFECTIVE PAIN MANAGEMENT, AND THE PAIN ASSESSMENT PROCESS?YES PATIENT: ____. HOSPITALIZATION/MAJOR DIAGNOSTIC PROCEDURE DENIES PAST HOSPITALIZATION REVIEW OF SYSTEMS REVIEWED BY: PROVIDER: . CONSTITUTIONAL: ANY CHANGE IN YOUR MEDICAL CONDITION? YES, PT STATES HER PCP CHANGED HER MEDICATIONS 01/2017. SHE WAS TAKEN OFF OF LISINOPRIL/HCTZ AND PLACED ON LISINOPRIL HER KIDNEY FUNCTION WAS ALTERED. . CHILLS NO . FEVER NO . INFECTION: DO YOU HAVE NEW INFECTIONS? NO . DO YOU HAVE HISTORY OF MRSA? NO . MUSCULOSKELETAL: ANY NEW PATTERNS OF PAIN OR NUMBNESS? NO . GASTROENTEROLOGY: ANY NEW CHANGE IN BOWEL CONTROL? NO . GENITOURINARY: ANY NEW CHANGE IN BLADDER CONTROL? NO . IS THERE A CHANCE YOU COULD BE ? NO . HEMATOLOGY/LYMPH: DO YOU TAKE ANY BLOOD THINNERS? (FOR EXAMPLE- COUMADIN, PLAVIX, AGGRENOX, PLATEL, PRADAXA, OR XARELTO) NO . WHEN WAS YOUR LAST DOSE? DATE: TIME: . NEUROLOGY: HAVE YOU FALLEN IN THE PAST 6 MONTHS? NO . ANY NEW EXTREMITY NUMBNESS OR WEAKNESS? NO . CARDIOLOGY: DO YOU HAVE A PACEMAKER OR DEFIBRILLATOR? NO . RESPIRATORY: HAVE YOU BEEN SICK IN THE PAST WEEK? NO . FEVER NO . FLU LIKE SYMPTOMS? NO . COUGH NO . INTEGUMENTARY: DO YOU HAVE ANY RASHES OR OPEN SORES? NO . ALLERGIC/IMMUNO: ARE YOU ALLERGIC TO SHELLFISH OR IV DYE? NO . ANY NEW ALLERGIES? NO . PSYCHIATRIC: DO YOU HAVE THOUGHTS OF HURTING YOURSELF OR SOMEONE ELSE? NO . ARE YOU ABUSED, NEGLECTED, OR IN AN UNSAFE ENVIRONMENT? NO . ENDOCRINOLOGY: ARE YOU DIABETIC? NO . OTHER: DO YOU NEED ANY PRESCRIPTIONS? NO . IF YES, PLEASE LIST: ____ . ANY NEW PROBLEMS WITH YOUR MEDICATIONS? NO . WHEN DID YOU LAST EAT? 02/15/17 2100 . WHEN DID YOU LAST DRINK? 02/16/17 0700 . WHAT DID YOU LAST DRINK? WATER . NAME OF PERSON DRIVING YOU HOME? MELISSA ONEIL . DO YOU HAVE ANY OTHER QUESTIONS OR CONCERNS NO . VITAL SIGNS WT 238 LBS, HT 63 IN, BMI 42.16 INDEX, BP 136/60 MM HG, HR 71 /MIN, RR 16 /MIN, TEMP 97.6 F, OXYGEN SAT % 97%, NA INITIALS SC 10:27. 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 SUSU REED INDEPENDENT FREIGHT AGENT NONE ANESTHESIA LOCAL PRE PROCEDURE NOTE 56 YEAR-OLD PATIENT WITH HISTORY OF CHRONIC OCCIPITAL PAIN. THE PAIN IS LOCATED OVER THE OCCIPITAL AREA WITH RADIATION TOWARDS THE PARIETAL AREA OF THE CRANIUM. I EVALUATED THE PATIENT AND REVIEWED THE CHART. I WENT OVER THE RISKS, ALTERNATIVES, AND BENEFITS ASSOCIATED WITH THIS PROCEDURE. THE PATIENT WOULD LIKE TO PROCEED AND GAVE CONSENT TO PERFORM THE PROCEDURE. THE PATIENT DENIES UNEXPLAINABLE WEIGHT LOSS, FEVER, CHILLS, OR NEW CHANGES IN URINARY OR BOWEL CONTROL. DESCRIPTION OF PROCEDURE THE PATIENT WAS BROUGHT TO THE PROCEDURE ROOM AND PLACED IN THE SITTING POSITION. THE BILATERAL OCCIPITAL AREA WAS CLEANED WITH ALCOHOL. THE PROCEDURE WAS DONE USING STERILE TECHNIQUES. I CHECKED LATERALITY AND THE LEVEL WHERE THE PROCEDURE WAS GOING TO BE PERFORMED WITH THE PATIENT AND THE SUPPORTING STAFF AT THE MOMENT OF THE TIME OUT IN THE PROCEDURE ROOM. USING A 25-GAUGE NEEDLE, THE BILATERAL OCCIPITAL NERVE WAS INJECTED AT THE NUCHAL LINE, 1-INCH LATERAL OF MIDLINE. I USED A TOTAL OF 15 ML OF BUPIVACAINE 0.25% WITH KENALOG 20 MG AT EACH NERVE. THERE WAS NO EVIDENCE OF BLOOD, PARESTHESIA OR CEREBROSPINAL FLUID DURING THE PROCEDURE. THE PATIENT WAS SENT TO THE RECOVERY ROOM. THE PATIENT WAS MOVING THE EXTREMITIES AND DOING WELL. THERE WAS NO COMPLICATION DURING THE PROCEDURE. POST PROCEDURE NOTE THE PATIENT WILL BE SEEN IN A FOLLOW UP IN THE NEXT FEW WEEKS. INSTRUCTIONS WERE GIVEN, QUESTIONS WERE ANSWERED, AND THE PATIENT EXPRESSED UNDERSTANDING AND AGREED WITH THE PLAN. I, JULIANNA DENTON, DOCUMENTED THE ABOVE INFORMATION ACTING A SCRIBE FOR DR. REED. I HAVE REVIEWED THE ABOVE DOCUMENT, WRITTEN BY JULIANNA KOHLER AND I VERIFY THAT IT IS ACCURATE PROCEDURE CODES 93394 N BLOCK INJ OCCIPITAL, MODIFIERS: 50 DISPOSITION & COMMUNICATION FOLLOW UP 3 WEEKS ELECTRONICALLY SIGNED BY SUSU REED MD ON 02/22/2017 AT 01:47 PM EDT DISCLAIMER : THIS IS A VISIT SUMMARY EXTRACTED FROM THE [employer] CHART. IT IS NOT A COPY OF THE [employer] PROGRESS NOTE. [place]
== END ==
LOC: M PAIN 10:15
PROVIDERS: ATTEND Anesthesiology
DX: G89.29 Other chronic pain (principal); M54.81 Occipital neuralgia; F32.9 Major depressive disorder, single episode, unspecified; I10 Essential (primary) hypertension; E78.5 Hyperlipidemia, unspecified; G47.33 Obstructive sleep apnea (adult) (pediatric); J30.2 Other seasonal allergic rhinitis; Z79.82 Long term (current) use of aspirin; Z79.891 Long term (current) use of opiate analgesic; Z79.899 Other long term (current) drug therapy; Z87.891 Personal history of nicotine dependence
CPT/HCPCS: 64405; J3301

== ENCOUNTER → 2017-03-30 | Outpatient (CLI) | payer MEDICARE ==
[~2017-03-30] MED LIST changes: -BUPIVACAINE HCL 0.25% 10 ML VIAL As Ordered ONE; -BUPIVACAINE HCL 0.25% 30 ML VIAL As Ordered ONE; -TRIAMCINOLONE ACETONIDE SUSP 40 MG/ML VIAL (J3301) As Ordered ONE; -diazePAM 5 MG TAB As Ordered ONE; -oxyCODONE 5MG TAB As Ordered ONE
--- NOTE | 2017-03-30 11:41 | REP ---
Clinical: Chronic medical renal disease stage III. Comparison: 09/19/2013. Technique: Real time auguste scale ultrasound examination using curved array transducer. Findings: The bilateral kidneys are normal in reniform shape and demonstrate increased central sinus fat consistent with chronic medical renal disease. No hydronephrosis, nephrolithiasis, cystic or mass lesion identified. Incidental column of More[place] noted in the left kidney. No perinephric fluid collections are identified. The bladder is normal in appearance currently measuring approximately 9.6 x 9.6 x 8.2 cm without wall thickening or mass lesion. Right kidney measures 9.8 x 4.9 x 5.0 cm. Left kidney measures 10.8 x 6.8 x 5.2 cm. Impression: Evidence to suggest chronic medical renal disease. No hydronephrosis or significant abnormality identified by ultrasound. Signed by Kody Mullins MD 03/30/2017 11:33 A
== END ==
LOC: M RAD 09:28
PROVIDERS: ATTEND Internal Medicine Nephrology
DX: N18.3 Chronic kidney disease, stage 3 (moderate) (principal); I12.9 Hypertensive chronic kidney disease with stage 1 through stage 4 chronic kidney disease, or unspecified chronic kidney disease; M54.5 Low back pain

== ENCOUNTER → 2017-04-02 | Outpatient (CLI) | payer MEDICARE | LOC: M LABNEURO 08:41 | PROVIDERS: ATTEND Physician Assistant Medical | DX: M25.50 Pain in unspecified joint (principal); R51 Headache; Z79.899 Other long term (current) drug therapy ==

== ENCOUNTER → 2017-04-15 | Outpatient (CLI) | payer MEDICARE | LOC: M PAIN 13:45 | DX: G89.29 Other chronic pain (principal); M79.1 Myalgia; M54.81 Occipital neuralgia; M25.562 Pain in left knee; F32.9 Major depressive disorder, single episode, unspecified; I10 Essential (primary) hypertension; E78.5 Hyperlipidemia, unspecified; G47.33 Obstructive sleep apnea (adult) (pediatric); J30.2 Other seasonal allergic rhinitis; Z87.891 Personal history of nicotine dependence; Z79.82 Long term (current) use of aspirin; Z79.899 Other long term (current) drug therapy; Z88.8 Allergy status to other drugs, medicaments and biological substances | CPT/HCPCS: G0463 ==

== ENCOUNTER → 2017-07-15 | Outpatient (CLI) | payer MEDICARE | LOC: M PAIN 10:15 | DX: M79.1 Myalgia (principal); M54.81 Occipital neuralgia; I10 Essential (primary) hypertension; E78.5 Hyperlipidemia, unspecified; Z79.82 Long term (current) use of aspirin; Z79.891 Long term (current) use of opiate analgesic; Z79.899 Other long term (current) drug therapy; Z88.8 Allergy status to other drugs, medicaments and biological substances | CPT/HCPCS: G0463 ==

== ENCOUNTER → 2017-07-27 | Outpatient (CLI) | payer MEDICARE ==
[2017-07-27 09:44] LABS: CHOLESTEROL LEVEL 161 MG/DL (<200); HDL CHOLESTEROL 46 MG/DL (>40); LDL CHOLESTEROL 92.2 MG/DL (<100); NON-HDL-C 115 MG/DL; TRIGLYCERIDES LEVEL 114 MG/DL (<150)
[2017-07-27 10:16] LABS: ESTIMATED AVERAGE GLUCOSE 100 MG/DL (60-110); HEMOGLOBIN A1c 5.1 %
[2017-07-27 10:24] LABS: TOTAL 25(OH) VITAMIN D 30.9 NG/ML (30.0-100.0)
== END ==
LOC: M LAB 08:48
DX: E55.9 Vitamin D deficiency, unspecified (principal); E78.00 Pure hypercholesterolemia, unspecified; Z79.899 Other long term (current) drug therapy
CPT/HCPCS: 83036

== ENCOUNTER → 2017-08-13 | Outpatient (CLI) | payer MEDICARE ==
[~2017-08-13] MED LIST changes: -/DULO30CA PO; -/METH500TA OR; -ACET50TAOT PO; -ASPI81TA85 PO; -BACL10TA5 PO; +BUPIVACAINE HCL 0.25% 10 ML VIAL As Ordered; +BUPIVACAINE HCL 0.25% 30 ML VIAL As Ordered; -BUPR15TA PO; -CYCL10TA PO; -CYMB1CAP PO; -DULO30CA PO; -FURO20TA2 PO; -GABA-282 PO; -GABA-283 PO; -GABA600T3 OR; -IBUP400T PO; -KLOR1TAB77 PO; -LIDO1OIN2 TOP; -LIDO5DIS TOP; -LIPI20TA OR; -LISI10TA4 OR; -LISINOPRIL/HCTZ PO; -TIZA2CAP3 PO; -TOPI200T OR; -TRAM50TA2 OR; +TRIAMCINOLONE ACETONIDE SUSP 40 MG/ML VIAL (J3301) As Ordered; -VITA1CAP40 PO; -astepro; +diazePAM 5 MG TAB As Ordered; +oxyCODONE 5MG TAB As Ordered
== END ==
LOC: M PAIN 10:30
DX: G89.29 Other chronic pain (principal); M54.81 Occipital neuralgia; F32.9 Major depressive disorder, single episode, unspecified; I12.9 Hypertensive chronic kidney disease with stage 1 through stage 4 chronic kidney disease, or unspecified chronic kidney disease; N18.3 Chronic kidney disease, stage 3 (moderate); E78.5 Hyperlipidemia, unspecified; G47.33 Obstructive sleep apnea (adult) (pediatric); J30.2 Other seasonal allergic rhinitis; Z79.82 Long term (current) use of aspirin; Z79.899 Other long term (current) drug therapy; Z88.8 Allergy status to other drugs, medicaments and biological substances; Z87.891 Personal history of nicotine dependence
CPT/HCPCS: J3301

== ENCOUNTER → 2017-11-10 | Outpatient (CLI) | payer MEDICARE | LOC: M PAIN 10:30 | DX: M79.1 Myalgia (principal); M54.81 Occipital neuralgia; F32.9 Major depressive disorder, single episode, unspecified; I12.9 Hypertensive chronic kidney disease with stage 1 through stage 4 chronic kidney disease, or unspecified chronic kidney disease; N18.3 Chronic kidney disease, stage 3 (moderate); E78.5 Hyperlipidemia, unspecified; G47.33 Obstructive sleep apnea (adult) (pediatric); J30.2 Other seasonal allergic rhinitis; Z79.82 Long term (current) use of aspirin; Z79.899 Other long term (current) drug therapy; Z88.8 Allergy status to other drugs, medicaments and biological substances; Z87.891 Personal history of nicotine dependence | CPT/HCPCS: G0463 ==

== ENCOUNTER → 2017-12-02 | Outpatient (CLI) | payer MEDICARE ==
[~2017-12-02] MED LIST changes: -diazePAM 5 MG TAB As Ordered; -oxyCODONE 5MG TAB As Ordered
== END ==
LOC: M PAIN 13:45
DX: G89.29 Other chronic pain (principal); M79.1 Myalgia; M25.511 Pain in right shoulder; F32.9 Major depressive disorder, single episode, unspecified; I12.9 Hypertensive chronic kidney disease with stage 1 through stage 4 chronic kidney disease, or unspecified chronic kidney disease; N18.3 Chronic kidney disease, stage 3 (moderate); E78.5 Hyperlipidemia, unspecified; G47.33 Obstructive sleep apnea (adult) (pediatric); J30.2 Other seasonal allergic rhinitis; Z79.82 Long term (current) use of aspirin; Z79.899 Other long term (current) drug therapy; Z88.8 Allergy status to other drugs, medicaments and biological substances; Z90.711 Acquired absence of uterus with remaining cervical stump; Z79.891 Long term (current) use of opiate analgesic
CPT/HCPCS: J3301

== ENCOUNTER → 2018-02-02 | Outpatient (CLI) | payer MEDICARE | LOC: M PAIN 10:30 | DX: M79.10 Myalgia, unspecified site (principal); M54.81 Occipital neuralgia; M25.511 Pain in right shoulder; F32.9 Major depressive disorder, single episode, unspecified; I12.9 Hypertensive chronic kidney disease with stage 1 through stage 4 chronic kidney disease, or unspecified chronic kidney disease; N18.3 Chronic kidney disease, stage 3 (moderate); E78.00 Pure hypercholesterolemia, unspecified; G47.33 Obstructive sleep apnea (adult) (pediatric); J30.2 Other seasonal allergic rhinitis; E66.01 Morbid (severe) obesity due to excess calories; Z68.43 Body mass index [BMI] 50.0-59.9, adult; Z79.82 Long term (current) use of aspirin; Z79.899 Other long term (current) drug therapy; Z88.8 Allergy status to other drugs, medicaments and biological substances; Z87.891 Personal history of nicotine dependence | CPT/HCPCS: G0463 ==

== ENCOUNTER → 2018-03-09 | Outpatient (CLI) | payer MEDICARE | LOC: M PAIN 14:00 | DX: M79.18 Myalgia, other site (principal); M54.81 Occipital neuralgia; M25.511 Pain in right shoulder; F32.9 Major depressive disorder, single episode, unspecified; I12.9 Hypertensive chronic kidney disease with stage 1 through stage 4 chronic kidney disease, or unspecified chronic kidney disease; E78.5 Hyperlipidemia, unspecified; G47.33 Obstructive sleep apnea (adult) (pediatric); N18.3 Chronic kidney disease, stage 3 (moderate); Z87.891 Personal history of nicotine dependence; Z88.8 Allergy status to other drugs, medicaments and biological substances; Z79.82 Long term (current) use of aspirin; Z79.891 Long term (current) use of opiate analgesic; Z79.899 Other long term (current) drug therapy | CPT/HCPCS: G0463 ==

== ENCOUNTER → 2018-04-15 | Outpatient (CLI) | payer MEDICARE ==
[~2018-04-15] MED LIST changes: +/DULO30CA PO; +/METH500TA OR; +ACET500T15 PO; +ASPI81TA85 PO; +BACL10TA8 PO; -BUPIVACAINE HCL 0.25% 10 ML VIAL As Ordered; +BUPIVACAINE HCL 0.25% 10 ML VIAL As Ordered ONE; -BUPIVACAINE HCL 0.25% 30 ML VIAL As Ordered; +BUPIVACAINE HCL 0.25% 30 ML VIAL As Ordered ONE; +BUPR15TA PO; +CYCL10TA PO; +CYMB1CAP PO; +DULO30CA PO; +FURO20TA2 PO; +GABA-843 PO; +GABA-845 PO; +GABA600T3 OR; +IBUP400T PO; +KLOR1TAB77 PO; +LIDO1OIN2 TOP; +LIDO5DIS TOP; +LIPI20TA OR; +LISI10TA4 OR; +LISINOPRIL/HCTZ PO; +TIZA2CAP PO; +TOPI200T OR; +TRAM50TA2 OR; -TRIAMCINOLONE ACETONIDE SUSP 40 MG/ML VIAL (J3301) As Ordered; +TRIAMCINOLONE ACETONIDE SUSP 40 MG/ML VIAL (J3301) As Ordered ONE; +VITA50005 PO; +astepro; +diazePAM 5 MG TAB As Ordered ONE; +oxyCODONE 5MG TAB As Ordered ONE
--- NOTE | 2018-05-05 00:07 | ECWPNPC ---
PATIENT NAME: KENTON HUTCHINS : 1960 GENDER: FEMALE VISIT DATE: 04/15/2018 DISCHARGE DATE: 04/15/18 1550 VISIT LOCKED DATE TIME: PHYSICIAN: SUSU REED MD RESOURCE: SUSU REED MD HISTORY OF PRESENT ILLNESS DEPRESSION SCREENING: PHQ-2 IN LAST TWO WEEKS HAVE YOU BEEN BOTHERED BY LITTLE INTEREST OR PLEASURE IN DOING THINGSNO FEELING DOWN, DEPRESSED, OR HOPELESSNO HISTORY OF PRESENT ILLNESS: PAIN THE PATIENT DESCRIBES THE PAIN... FALL RISK SCREENING: SCREENING :NO FALLS IN THE PAST YEAR CURRENT MEDICATIONS TAKING CYMBALTA 60 MG CAPSULE DELAYED RELEASE PARTICLES 1 CAPSULE ORALLY ONCE A DAY, NOTES: 04/14/182099 TAKING GABAPENTIN 600 MG TABLET 1 CAPSULE ORALLY THREE TIMES A DAY, NOTES: 0700 TAKING ASPIR-81 81 MG TABLET DELAYED RELEASE 1 TABLET P.O. ONCE A DAY, NOTES: 0700 TAKING LIPITOR 10 MG TABLET 1 TABLET ORALLY ONCE A DAY, NOTES: 04/14/182099 TAKING MONTELUKAST SODIUM 10 MG TABLET 1 TABLET IN THE EVENING ORALLY ONCE A DAY, NOTES: 04/14/182099 TAKING VENTOLIN HFA 108 (90 BASE) MCG/ACT AEROSOL SOLUTION 2 PUFFS NEEDED INHALATION EVERY 4 HRS, NOTES: WEEKS AGO TAKING LISINOPRIL 10 MG TABLET 1 TABLET ORALLY ONCE A DAY, NOTES: 04/14/182099 TAKING METOPROLOL SUCCINATE ER 50 MG TABLET EXTENDED RELEASE 24 HOUR 1 TABLET ORALLY ONCE A DAY, NOTES: 04/14/182099 TAKING TYLENOL 8 HOUR 650 MG TABLET EXTENDED RELEASE 2 TABLETS NEEDED ORALLY EVERY 8 HRS, NOTES: 04/14/18 1400 TAKING TRAMADOL HCL 50 MG TABLET 1 -2 TABLET NEEDED ORALLY EVERY 6 HRS MDD=6 CODE D CHRONIC PAIN, NOTES: 0700 NOT-TAKING LIDOCAINE 5 % OINTMENT 1 APPLICATION TO AFFECTED AREA NEEDED EXTERNALLY THREE TIMES A DAY NOT-TAKING FUROSEMIDE 20 MG TABLET 1 TABLET ORALLY ONCE A DAY NOT-TAKING SOMA 350 MG TABLET 1 TABLET NEEDED ORALLY BEFORE BEDTIME MEDICATION LIST REVIEWED AND RECONCILED WITH THE PATIENT PAST MEDICAL HISTORY DEPRESSION BACK PAIN, INJURY HTN HYPERLIPIDEMIA OBSTRUCTIVE SLEEP APNEA HX OF ENDOMETRIOSIS AND ABNORMAL PAP SMEARS SEASONAL ALLERGIES STAGE 3 KIDNEY DISEASE ALLERGIES ZONISAMIDE: ELEVATED KIDNEY LEVELS SURGICAL HISTORY PARTIAL HYSTERECTOMY 1994 BREAST BIOPSY BENIGN TUBAL LIGATION 1984 RIGHT KNEE SURGERY FAMILY HISTORY FATHER: 53 YRS, DIAGNOSED WITH HYPERTENSION, HEART DISEASE MOTHER: 76 YRS, DIAGNOSED WITH DIABETES, HYPERTENSION 5 BROTHER(S) , 3 SISTER(S) - HEALTHY. 1 SISTER FROM [place] - RHEUMATOID ARTHRITIS. SOCIAL HISTORY GENERAL: TOBACCO USE ARE YOU A:FORMER SMOKER HOW LONG HAS IT BEEN SINCE YOU LAST SMOKED?1-5 YEARS ALCOHOL SCREENING DID YOU HAVE A DRINK CONTAINING ALCOHOL IN THE PAST YEAR?YES HOW OFTEN DID YOU HAVE A DRINK CONTAINING ALCOHOL IN THE PAST YEAR?MONTHLY OR LESS (1 POINT) HOW MANY DRINKS DID YOU HAVE ON A TYPICAL DAY WHEN YOU WERE DRINKING IN THE PAST YEAR?1 OR 2 (0 POINTS) HOW OFTEN DID YOU HAVE SIX OR MORE DRINKS ON ONE OCCASION IN THE PAST YEAR?NEVER (0 POINTS) POINTS1 INTERPRETATIONNEGATIVE RECREATIONAL DRUG USE DRUG USE?NO RASTAFARIAN [id number] YAZDANISM LANGUAGE LANGUAGES SPOKEN:TRISTANIAN LEARNING BARRIERS / SPECIAL NEEDS CHANGE FROM LAST VISIT?NO BARRIERS TO LEARNING?NO HEARING IMPAIRED?NO VISION IMPAIRED?YES COGNITIVELY IMPAIRED?NO :CORRECTIVE LENSES READINESS TO LEARN?YES LEARNING PREFERENCES?NO LEARNING CAPABILITIES PRESENT?YES EMOTIONAL BARRIERS?NO SPECIAL DEVICES?NO YARD GOODS SALESPERSON NEEDED?NO OCCUPATION: RETIRED. DIET: REGULAR. MARITAL STATUS: SINGLE, .. OTHERS AT HOME: OTHER NON-RELATIVE. PAIN CLINIC PFS, CLERGY, PUBLIC HEALTH REFERRALS PFS REFERRAL NEEDED?NO CLERGY REFERRAL NEEDED?NO PUBLIC HEALTH REFERRAL NEEDED?NO WAS THE PROVIDER NOTIFIED OF ANY PERTINENT INFO?NO HAS THE PATIENT BEEN EDUCATED REGARDING HIS/HER PLAN OF CARE?YES HAS THE PATIENT BEEN EDUCATED REGARDING PAIN, THE RISK FOR PAIN, THE IMPORTANCE OF EFFECTIVE PAIN MANAGEMENT, AND THE PAIN ASSESSMENT PROCESS?YES HOUSING: OWNS MOBILE HOME. ADVANCE DIRECTIVE ADVANCE DIRECTIVE DISCUSSED WITH PATIENT:YES HCP MELODY JEAN BAPTISTE [phone] REVIEWED WITH PATIENT 02/02/18 1124 JSREVIEWED WITH PT 03/09/18 1449 BVREVIEWED WITH PATIENT 04/15/18 1437 JS. HOSPITALIZATION/MAJOR DIAGNOSTIC PROCEDURE CHILDBEARING REVIEW OF SYSTEMS REVIEWED BY: PROVIDER: . CONSTITUTIONAL: ANY CHANGE IN YOUR MEDICAL CONDITION? NO . CHILLS NO . FEVER NO . INFECTION: DO YOU HAVE NEW INFECTIONS? NO . DO YOU HAVE HISTORY OF MRSA? NO . MUSCULOSKELETAL: ANY NEW PATTERNS OF PAIN OR NUMBNESS? NO . GASTROENTEROLOGY: ANY NEW CHANGE IN BOWEL CONTROL? NO . GENITOURINARY: ANY NEW CHANGE IN BLADDER CONTROL? NO . IS THERE A CHANCE YOU COULD BE ? NO . HEMATOLOGY/LYMPH: DO YOU TAKE ANY BLOOD THINNERS? (FOR EXAMPLE- COUMADIN, PLAVIX, AGGRENOX, PLATEL, PRADAXA, OR XARELTO) NO . WHEN WAS YOUR LAST DOSE? DATE: TIME: . NEUROLOGY: HAVE YOU FALLEN IN THE PAST 6 MONTHS? YES, STATES FALL RELATED TO TRIPPING WHEN WALKING UP THE STEPS. STATES NO INJURIES, NO ED VISIT, NO IMAGING . ANY NEW EXTREMITY NUMBNESS OR WEAKNESS? NO . CARDIOLOGY: DO YOU HAVE A PACEMAKER OR DEFIBRILLATOR? NO . RESPIRATORY: HAVE YOU BEEN SICK IN THE PAST WEEK? NO . FEVER NO . FLU LIKE SYMPTOMS? NO . COUGH NO . INTEGUMENTARY: DO YOU HAVE ANY RASHES OR OPEN SORES? NO . ALLERGIC/IMMUNO: ARE YOU ALLERGIC TO SHELLFISH OR IV DYE? NO . ANY NEW ALLERGIES? NO . PSYCHIATRIC: DO YOU HAVE THOUGHTS OF HURTING YOURSELF OR SOMEONE ELSE? NO . ARE YOU ABUSED, NEGLECTED, OR IN AN UNSAFE ENVIRONMENT? NO . ENDOCRINOLOGY: ARE YOU DIABETIC? NO . OTHER: DO YOU NEED ANY PRESCRIPTIONS? NO . IF YES, PLEASE LIST: ____ . ANY NEW PROBLEMS WITH YOUR MEDICATIONS? NO . WHEN DID YOU LAST EAT? ____04/14/18 2100 . WHEN DID YOU LAST DRINK? ____04/15/18 0600 . WHAT DID YOU LAST DRINK? ____COFFEE . NAME OF PERSON DRIVING YOU HOME? ____MELISSA ONEIL . DO YOU HAVE ANY OTHER QUESTIONS OR CONCERNS NO . VITAL SIGNS WT 241.8 LBS, HT 63 IN, BMI 42.83 INDEX, BP 150/70 MM HG, HR 63 /MIN, RR 18 /MIN, TEMP 97.1 F, OXYGEN SAT % 96%, SAFE IN ENV? (Y/N) YES, NA INITIALS AW 1347, REVIEWED BY: JS. ASSESSMENTS MYALGIA, OTHER SITE - M79.18 (PRIMARY) PROCEDURES PN TRIGGER POINT INJECTION WITH STEROIDS PRE PROCEDURE DIAGNOSIS 1. MYALGIA 2. PAIN AT BILATERAL NECK AREA AND BILATERAL SHOULDER AREA POST PROCEDURE DIAGNOSIS 1. MYALGIA 2. PAIN AT BILATERAL NECK AREA AND BILATERAL SHOULDER AREA PROCEDURE TRIGGER POINT INJECTION AT BILATERAL NECK AREA AND BILATERAL SHOULDER AREA SURGEON DR. 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 I EVALUATE THE PATIENT AND REVIEWED THE CHART. THERE IS EVIDENCE OF BANDS OF TISSUE WITH RESTRICTION OF MOVEMENT AND PRESENCE OF TRIGGER POINT AT THE AFFECTED AREA. I WENT OVER THE RISKS, ALTERNATIVES, AND BENEFITS ASSOCIATED WITH THIS PROCEDURE. THE PATIENT WOULD LIKE TO PROCEED AND GIVE CONSENT TO PERFORMED THE PROCEDURE. THE PATIENT DENIES UNEXPLAINABLE WEIGHT LOSS, FEVER, CHILLS, OR NEW CHANGES IN URINARY OR BOWEL CONTROL DESCRIPTION OF PROCEDURE THE PATIENT WAS BROUGHT TO THE PROCEDURE ROOM AND PLACED IN THE SITTING POSITION. THE AREA WAS CLEANED WITH ALCOHOL. THE PROCEDURE WAS DONE USING ASEPTIC STERILE TECHNIQUE. I CHECKED LATERALITY AND THE LEVEL WHERE THE PROCEDURE WAS GOING TO BE PERFORMED WITH THE PATIENT AND THE SUPPORTING STAFF AT THE MOMENT OF THE TIME OUT IN THE PROCEDURE ROOM. USING A 25-GAUGE NEEDLE, TRIGGER POINTS WERE INJECTED AT THE RIGHT AND LEFT NECK AREA AND RIGHT AND LEFT SHOULDER AREA WITH A TOTAL OF 40 ML OF BUPIVACAINE 0.25% AND KENALOG 40 MG. THERE WAS NO EVIDENCE OF BLOOD, PARESTHESIA OR CEREBROSPINAL FLUID DURING THE PROCEDURE. THE PATIENT WAS SENT TO THE RECOVERY ROOM. THE PATIENT WAS MOVING THE EXTREMITIES AND DOING WELL. THERE WAS NO COMPLICATION DURING THE PROCEDURE POST PROCEDURE NOTE THE PATIENT WILL BE SEEN IN A FOLLOW UP IN THE NEXT FEW WEEKS. INSTRUCTIONS WERE GIVEN, QUESTIONS WERE ANSWERED, AND THE PATIENT EXPRESSED UNDERSTANDING AND AGREES WITH THE PLAN. I, ANUSHA CHISHOLM, DOCUMENTED THE ABOVE INFORMATION ACTING A SCRIBE FOR DR. REED. I HAVE REVIEWED THE ABOVE DOCUMENT, WRITTEN BY ANUSHA KOHLER AND I VERIFY THAT IT IS ACCURATE PROCEDURE CODES 81402 INJECT TRIGGER POINTS 3/> DISPOSITION & COMMUNICATION FOLLOW UP 3 WEEKS ELECTRONICALLY SIGNED BY SUSU REED MD, MD ON 05/04/2018 AT 05:17 PM EST DISCLAIMER : THIS IS A VISIT SUMMARY EXTRACTED FROM THE [employer] CHART. IT IS NOT A COPY OF THE [employer] PROGRESS NOTE. [place]
== END ==
LOC: M PAIN 14:30
PROVIDERS: ATTEND Anesthesiology
DX: M79.18 Myalgia, other site (principal); F32.9 Major depressive disorder, single episode, unspecified; I12.9 Hypertensive chronic kidney disease with stage 1 through stage 4 chronic kidney disease, or unspecified chronic kidney disease; E78.5 Hyperlipidemia, unspecified; G47.33 Obstructive sleep apnea (adult) (pediatric); J30.2 Other seasonal allergic rhinitis; N18.3 Chronic kidney disease, stage 3 (moderate); Z87.891 Personal history of nicotine dependence; Z79.82 Long term (current) use of aspirin; Z79.899 Other long term (current) drug therapy; Z79.891 Long term (current) use of opiate analgesic; Z88.8 Allergy status to other drugs, medicaments and biological substances
CPT/HCPCS: 20553; J3301

== ENCOUNTER → 2018-07-08 | Outpatient (CLI) | payer MEDICARE ==
[~2018-07-08] MED LIST changes: -BUPIVACAINE HCL 0.25% 10 ML VIAL As Ordered ONE; -BUPIVACAINE HCL 0.25% 30 ML VIAL As Ordered ONE; -TRIAMCINOLONE ACETONIDE SUSP 40 MG/ML VIAL (J3301) As Ordered ONE; -diazePAM 5 MG TAB As Ordered ONE; -oxyCODONE 5MG TAB As Ordered ONE
--- NOTE | 2018-07-17 00:56 | ECWPNPC ---
PATIENT NAME: KENTON HUTCHINS : 1960 GENDER: FEMALE VISIT DATE: 07/08/2018 DISCHARGE DATE: 07/08/18 1240 VISIT LOCKED DATE TIME: PHYSICIAN: MARCO PEACE RESOURCE: MARCO PEACE REASON FOR APPOINTMENT 1. POST TPI HISTORY OF PRESENT ILLNESS HISTORY OF PRESENT ILLNESS: HERE FOR POST PROCEDURE F/U.HAD BILAT. NECK AND SHOULDER TPI ON 04/15/18.REPORTING SOME IMPROVEMENT IN PAIN FOR 3 WEEKS THEN PAIN HAS RETURNED.RATING PAIN VAS 7/10.PAIN IS LOCATED MAINLY IN OCCIPITAL REGION BILAT.DESCRIBES PAIN CONTINUOUS,SHARP AND BURNING. PAIN THE PATIENT DESCRIBES THE PAIN... FALL RISK SCREENING: SCREENING : NO FALLS IN THE PAST YEAR. CURRENT MEDICATIONS TAKING CYMBALTA 60 MG CAPSULE DELAYED RELEASE PARTICLES 1 CAPSULE ORALLY ONCE A DAY TAKING GABAPENTIN 600 MG TABLET 1 CAPSULE ORALLY THREE TIMES A DAY TAKING ASPIR-81 81 MG TABLET DELAYED RELEASE 1 TABLET P.O. ONCE A DAY TAKING LIPITOR 10 MG TABLET 1 TABLET ORALLY ONCE A DAY TAKING MONTELUKAST SODIUM 10 MG TABLET 1 TABLET IN THE EVENING ORALLY ONCE A DAY TAKING LISINOPRIL 10 MG TABLET 1 TABLET ORALLY ONCE A DAY TAKING METOPROLOL SUCCINATE ER 50 MG TABLET EXTENDED RELEASE 24 HOUR 1 TABLET ORALLY ONCE A DAY TAKING TYLENOL 8 HOUR 650 MG TABLET EXTENDED RELEASE 2 TABLETS NEEDED ORALLY EVERY 8 HRS TAKING TRAMADOL HCL 50 MG TABLET 1 -2 TABLET NEEDED ORALLY EVERY 6 HRS MDD=6 CODE D CHRONIC PAIN NOT-TAKING VENTOLIN HFA 108 (90 BASE) MCG/ACT AEROSOL SOLUTION 2 PUFFS NEEDED INHALATION EVERY 4 HRS, NOTES: WEEKS AGO NOT-TAKING LIDOCAINE 5 % OINTMENT 1 APPLICATION TO AFFECTED AREA NEEDED EXTERNALLY THREE TIMES A DAY NOT-TAKING FUROSEMIDE 20 MG TABLET 1 TABLET ORALLY ONCE A DAY NOT-TAKING SOMA 350 MG TABLET 1 TABLET NEEDED ORALLY BEFORE BEDTIME MEDICATION LIST REVIEWED AND RECONCILED WITH THE PATIENT PAST MEDICAL HISTORY DEPRESSION BACK PAIN, INJURY HTN HYPERLIPIDEMIA OBSTRUCTIVE SLEEP APNEA HX OF ENDOMETRIOSIS AND ABNORMAL PAP SMEARS SEASONAL ALLERGIES STAGE 3 KIDNEY DISEASE ALLERGIES ZONISAMIDE: ELEVATED KIDNEY LEVELS SURGICAL HISTORY PARTIAL HYSTERECTOMY 1994 BREAST BIOPSY BENIGN TUBAL LIGATION 1983 RIGHT KNEE SURGERY FAMILY HISTORY FATHER: 53 YRS, DIAGNOSED WITH HYPERTENSION, HEART DISEASE MOTHER: 76 YRS, DIAGNOSED WITH DIABETES, HYPERTENSION 5 BROTHER(S) , 3 SISTER(S) - HEALTHY. 1 SISTER FROM [place] - RHEUMATOID ARTHRITIS. SOCIAL HISTORY GENERAL: TOBACCO USE ARE YOU A:FORMER SMOKER HOW LONG HAS IT BEEN SINCE YOU LAST SMOKED?1-5 YEARS ALCOHOL SCREENING DID YOU HAVE A DRINK CONTAINING ALCOHOL IN THE PAST YEAR?YES HOW OFTEN DID YOU HAVE A DRINK CONTAINING ALCOHOL IN THE PAST YEAR?MONTHLY OR LESS (1 POINT) HOW MANY DRINKS DID YOU HAVE ON A TYPICAL DAY WHEN YOU WERE DRINKING IN THE PAST YEAR?1 OR 2 (0 POINTS) HOW OFTEN DID YOU HAVE SIX OR MORE DRINKS ON ONE OCCASION IN THE PAST YEAR?NEVER (0 POINTS) POINTS1 INTERPRETATIONNEGATIVE RECREATIONAL DRUG USE DRUG USE?NO CATHOLIC [id number] TAOISM LANGUAGE LANGUAGES SPOKEN:HONG KONGER LEARNING BARRIERS / SPECIAL NEEDS CHANGE FROM LAST VISIT?NO BARRIERS TO LEARNING?NO HEARING IMPAIRED?NO VISION IMPAIRED?YES COGNITIVELY IMPAIRED?NO :CORRECTIVE LENSES READINESS TO LEARN?YES LEARNING PREFERENCES?NO LEARNING CAPABILITIES PRESENT?YES EMOTIONAL BARRIERS?NO SPECIAL DEVICES?NO FRAME STYLIST NEEDED?NO OCCUPATION: RETIRED. DIET: REGULAR. MARITAL STATUS: SINGLE, .. OTHERS AT HOME: OTHER NON-RELATIVE. PAIN CLINIC PFS, CLERGY, PUBLIC HEALTH REFERRALS PFS REFERRAL NEEDED?NO CLERGY REFERRAL NEEDED?NO PUBLIC HEALTH REFERRAL NEEDED?NO WAS THE PROVIDER NOTIFIED OF ANY PERTINENT INFO?NO HAS THE PATIENT BEEN EDUCATED REGARDING HIS/HER PLAN OF CARE?YES HAS THE PATIENT BEEN EDUCATED REGARDING PAIN, THE RISK FOR PAIN, THE IMPORTANCE OF EFFECTIVE PAIN MANAGEMENT, AND THE PAIN ASSESSMENT PROCESS?YES HOUSING: OWNS MOBILE HOME. ADVANCE DIRECTIVE ADVANCE DIRECTIVE DISCUSSED WITH PATIENT:YES HCP MELODY JEAN BAPTISTE [phone] REVIEWED WITH PATIENT 02/02/18 1124 JSREVIEWED WITH PT 03/09/18 1449 BVREVIEWED WITH PATIENT 04/15/18 1437 JS. HOSPITALIZATION/MAJOR DIAGNOSTIC PROCEDURE CHILDBEARING REVIEW OF SYSTEMS REVIEWED BY: PROVIDER: MARCO FULLER . CONSTITUTIONAL: ANY CHANGE IN YOUR MEDICAL CONDITION? NO . CHILLS NO . FEVER NO . INFECTION: DO YOU HAVE NEW INFECTIONS? NO . DO YOU HAVE HISTORY OF MRSA? NO . MUSCULOSKELETAL: ANY NEW PATTERNS OF PAIN OR NUMBNESS? NO . GASTROENTEROLOGY: ANY NEW CHANGE IN BOWEL CONTROL? NO . GENITOURINARY: ANY NEW CHANGE IN BLADDER CONTROL? NO . IS THERE A CHANCE YOU COULD BE ? NO . HEMATOLOGY/LYMPH: DO YOU TAKE ANY BLOOD THINNERS? (FOR EXAMPLE- COUMADIN, PLAVIX, AGGRENOX, PLATEL, PRADAXA, OR XARELTO) NO . WHEN WAS YOUR LAST DOSE? DATE: TIME: . NEUROLOGY: HAVE YOU FALLEN IN THE PAST 12 MONTHS? YES FELL OR TRIPPED GOING UP STAIRS NO URGENT CARE ---IN [place] . ANY NEW EXTREMITY NUMBNESS OR WEAKNESS? NO . CARDIOLOGY: DO YOU HAVE A PACEMAKER OR DEFIBRILLATOR? NO . RESPIRATORY: HAVE YOU BEEN SICK IN THE PAST WEEK? NO . FEVER NO . FLU LIKE SYMPTOMS? NO . COUGH NO . INTEGUMENTARY: DO YOU HAVE ANY RASHES OR OPEN SORES? NO . ALLERGIC/IMMUNO: ARE YOU ALLERGIC TO IV DYE? NO . ANY NEW ALLERGIES? NO . PSYCHIATRIC: DO YOU HAVE THOUGHTS OF HURTING YOURSELF OR SOMEONE ELSE? NO . ARE YOU ABUSED, NEGLECTED, OR IN AN UNSAFE ENVIRONMENT? NO . ENDOCRINOLOGY: ARE YOU DIABETIC? NO . OTHER: DO YOU NEED ANY PRESCRIPTIONS? NO . IF YES, PLEASE LIST: ____ . ANY NEW PROBLEMS WITH YOUR MEDICATIONS? NO . WHEN DID YOU LAST EAT? ____ . WHEN DID YOU LAST DRINK? ____ . WHAT DID YOU LAST DRINK? ____ . NAME OF PERSON DRIVING YOU HOME? ____ . DO YOU HAVE ANY OTHER QUESTIONS OR CONCERNS NO . VITAL SIGNS WT 246 LBS, HT 63 IN, BMI 43.57 INDEX, BP 136/71 MM HG, HR 68 /MIN, RR 18 /MIN, TEMP 98.6 F, OXYGEN SAT % 98, SAFE IN ENV? (Y/N) YES, REVIEWED BY: KG. EXAMINATION GENERAL EXAMINATION: GENERAL APPEARANCE:AWAKE,ALERT ,PLEAASANT . PSYCHAFFECT NORMAL . LUNGS:LUNG LICEA ARE CLEAR TO AUSCULTATION BILATERALLY. GOOD MOVEMENT OF AIR . HEART:S1, S2 IN A REGULAR RATE AND RHYTHM. NO SIGNIFICANT MURMURS, RUBS OR GALLOPS NOTED . CERVICALSPECIFIC POINT TENDERNESS OVER BILAT. OCCIPITAL NERVES . 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 PROCEDURE CODES FA211 ESTABILISHED PATIENT [facility] FACILITY CHARGE DISPOSITION & COMMUNICATION FOLLOW UP POST (REASON: BILAT OCCIPITAL BLOCK) ELECTRONICALLY SIGNED BY ALINA SPIVEY ON 07/16/2018 AT 08:49 AM EDT DISCLAIMER : THIS IS A VISIT SUMMARY EXTRACTED FROM THE [employer]ICAL[employer]KS CHART. IT IS NOT A COPY OF THE [employer] PROGRESS NOTE. ALBAN
== END ==
LOC: M PAIN 11:30
PROVIDERS: ATTEND Nurse Practitioner Family
DX: M54.81 Occipital neuralgia (principal); Z86.59 Personal history of other mental and behavioral disorders; I12.9 Hypertensive chronic kidney disease with stage 1 through stage 4 chronic kidney disease, or unspecified chronic kidney disease; E78.5 Hyperlipidemia, unspecified; G47.33 Obstructive sleep apnea (adult) (pediatric); N18.3 Chronic kidney disease, stage 3 (moderate); E66.01 Morbid (severe) obesity due to excess calories; Z68.41 Body mass index [BMI] 40.0-44.9, adult; Z87.891 Personal history of nicotine dependence; Z88.8 Allergy status to other drugs, medicaments and biological substances; Z79.82 Long term (current) use of aspirin; Z79.899 Other long term (current) drug therapy

== ENCOUNTER → 2018-07-20 | Outpatient (CLI) | payer MEDICARE ==
[2018-07-20 12:31] LABS: BASO # 0.1 10^3/uL (0.0-0.2); BASO % 1.5 % (0.0-1.0); EOS # 0.2 10^3/uL (0.0-0.50); EOS % 3.3 % (0.0-3.0); HEMATOCRIT 36.7 % (36.0-47.0); HEMOGLOBIN 11.9 g/dl (12.0-15.5); LYMPH # 1.7 10^3/uL (1.5-4.5); LYMPH % 25.3 % (24.0-44.0); MEAN CORPUSCULAR HEMOGLOBIN 28.5 pg (27.0-33.0); MEAN CORPUSCULAR HGB CONC 32.4 g/dl (32.0-36.5); MONO # 0.8 10^3/uL (0.0-0.8); MONO % 12.7 % (0.0-5.0); NEUTROPHILS # 3.8 10^3/uL (1.8-7.7); NEUTROPHILS % 56.6 % (36.0-66.0); PLATELET COUNT, AUTOMATED 251 10^3/uL (150-450); RED BLOOD COUNT 4.17 10^6/uL (4.00-5.40); WHITE BLOOD COUNT 6.6 10^3/uL (4.0-10.0)
[2018-07-20 13:56] LABS: ALBUMIN 3.9 GM/DL (3.2-5.2); BILIRUBIN,TOTAL 0.4 MG/DL (0.2-1.0); CALCIUM LEVEL 8.8 MG/DL (8.5-10.1); CHOLESTEROL RISK RATIO 3.156 (<5); CREATININE FOR GFR 1.19 MG/DL (0.55-1.30); FREE T4 0.94 NG/DL (0.76-1.46); GLOMERULAR FILTRATION RATE 49.6 (>51); POTASSIUM SERUM 4.5 MEQ/L (3.5-5.1); THYROID STIMULATING HORMONE 1.83 uIU/ML (0.358-3.740); TOTAL 25(OH) VITAMIN D 23.7 NG/ML (30.0-100.0); TOTAL PROTEIN 7.1 GM/DL (6.4-8.2)
== END ==
LOC: M LAB 11:50
PROVIDERS: ATTEND Physician Assistant Medical
DX: E78.2 Mixed hyperlipidemia (principal); R53.83 Other fatigue; I10 Essential (primary) hypertension; E55.9 Vitamin D deficiency, unspecified

== ENCOUNTER → 2018-08-31 | Outpatient (CLI) | payer MEDICARE ==
[~2018-08-31] MED LIST changes: -/DULO30CA PO; -/METH500TA OR; +CYMB1CAP5 PO; -DULO30CA PO; +DULO30CA9 PO; +METH1TAB40 OR
--- NOTE | 2018-09-16 00:37 | ECWPNPC ---
PATIENT NAME: KENTON HUTCHINS : 1960 GENDER: FEMALE VISIT DATE: 08/31/2018 DISCHARGE DATE: 08/31/18 1015 VISIT LOCKED DATE TIME: PHYSICIAN: MARCO PEACE RESOURCE: MARCO PEACE REASON FOR APPOINTMENT 1. POST BILAT OCCIPITAL BLOCK HISTORY OF PRESENT ILLNESS HISTORY OF PRESENT ILLNESS: HERE FOR POST PROCEDURE F/U.HAD BILAT. OCCIPITAL BLOCKS ON 08/04/18.HEADACHES ARE BETTER CONTROLLED.COMPLAINING OF 3 WEEK HISTORY OF NUMBNESS/TINGLING LEFT LEG. PAIN THE PATIENT DESCRIBES THE PAIN... FALL RISK SCREENING: SCREENING :NO FALLS REPORTED IN THE LAST YEAR CURRENT MEDICATIONS TAKING CYMBALTA 60 MG CAPSULE DELAYED RELEASE PARTICLES 1 CAPSULE ORALLY ONCE A DAY TAKING GABAPENTIN 600 MG TABLET 1 CAPSULE ORALLY THREE TIMES A DAY TAKING ASPIR-81 81 MG TABLET DELAYED RELEASE 1 TABLET P.O. ONCE A DAY TAKING LIPITOR 10 MG TABLET 1 TABLET ORALLY ONCE A DAY TAKING MONTELUKAST SODIUM 10 MG TABLET 1 TABLET IN THE EVENING ORALLY ONCE A DAY TAKING LISINOPRIL 10 MG TABLET 1 TABLET ORALLY ONCE A DAY TAKING METOPROLOL SUCCINATE ER 50 MG TABLET EXTENDED RELEASE 24 HOUR 1 TABLET ORALLY ONCE A DAY TAKING TYLENOL 8 HOUR 650 MG TABLET EXTENDED RELEASE 2 TABLETS NEEDED ORALLY EVERY 8 HRS TAKING TRAMADOL HCL 50 MG TABLET 1 -2 TABLET NEEDED ORALLY EVERY 6 HRS MDD=6 CODE D CHRONIC PAIN TAKING MAY USE CBD OIL ONCE DAILY NOT-TAKING VENTOLIN HFA 108 (90 BASE) MCG/ACT AEROSOL SOLUTION 2 PUFFS NEEDED INHALATION EVERY 4 HRS, NOTES: WEEKS AGO NOT-TAKING LIDOCAINE 5 % OINTMENT 1 APPLICATION TO AFFECTED AREA NEEDED EXTERNALLY THREE TIMES A DAY NOT-TAKING FUROSEMIDE 20 MG TABLET 1 TABLET ORALLY ONCE A DAY NOT-TAKING SOMA 350 MG TABLET 1 TABLET NEEDED ORALLY BEFORE BEDTIME MEDICATION LIST REVIEWED AND RECONCILED WITH THE PATIENT PAST MEDICAL HISTORY DEPRESSION BACK PAIN, INJURY HTN HYPERLIPIDEMIA OBSTRUCTIVE SLEEP APNEA HX OF ENDOMETRIOSIS AND ABNORMAL PAP SMEARS SEASONAL ALLERGIES STAGE 3 KIDNEY DISEASE ALLERGIES ZONISAMIDE: ELEVATED KIDNEY LEVELS SURGICAL HISTORY PARTIAL HYSTERECTOMY 1994 BREAST BIOPSY BENIGN TUBAL LIGATION 1983 RIGHT KNEE SURGERY FAMILY HISTORY FATHER: 53 YRS, DIAGNOSED WITH HYPERTENSION, HEART DISEASE MOTHER: 76 YRS, DIABETES, HYPERTENSION 5 BROTHER(S) , 3 SISTER(S) - HEALTHY. 1 SISTER FROM [place]\\NDAUGHTER - RHEUMATOID ARTHRITIS. SOCIAL HISTORY GENERAL: TOBACCO USE ARE YOU A:FORMER SMOKER HOW LONG HAS IT BEEN SINCE YOU LAST SMOKED?1-5 YEARS OTHERS AT HOME: OTHER NON-RELATIVE. HOUSING: OWNS MOBILE HOME. DIET: REGULAR. LANGUAGE LANGUAGES SPOKEN:BARBADIAN RECREATIONAL DRUG USE DRUG USE?NO LEARNING BARRIERS / SPECIAL NEEDS CHANGE FROM LAST VISIT?NO BARRIERS TO LEARNING?NO HEARING IMPAIRED?NO VISION IMPAIRED?YES :CORRECTIVE LENSES COGNITIVELY IMPAIRED?NO READINESS TO LEARN?YES LEARNING PREFERENCES?NO LEARNING CAPABILITIES PRESENT?YES EMOTIONAL BARRIERS?NO SPECIAL DEVICES?NO CEO ZIFF DAVIS NEEDED?NO PAIN CLINIC PFS, CLERGY, PUBLIC HEALTH REFERRALS PFS REFERRAL NEEDED?NO CLERGY REFERRAL NEEDED?NO PUBLIC HEALTH REFERRAL NEEDED?NO WAS THE PROVIDER NOTIFIED OF ANY PERTINENT INFO?NO HAS THE PATIENT BEEN EDUCATED REGARDING HIS/HER PLAN OF CARE?YES HAS THE PATIENT BEEN EDUCATED REGARDING PAIN, THE RISK FOR PAIN, THE IMPORTANCE OF EFFECTIVE PAIN MANAGEMENT, AND THE PAIN ASSESSMENT PROCESS?YES LATEX QUESTIONNAIRE LATEX ALLERGY : HAVE YOU EVER DEVELOPED ANY TYPE OF REACTION AFTER HANDLING LATEX PRODUCTS SUCH RUBBER GLOVES, CONDOMS, DIAPHRAGMS, BALLOONS, SOCKS, OR UNDERWEAR?NO LATEX ALLERGY : HAVE YOU EVER DEVELOPED ANY TYPE OF REACTION DURING OR AFTER DENTAL APPOINTMENT, VAGINAL/RECTAL EXAMINATION, SURGICAL PROCEDURE, OR ANY OTHER EXPOSURE?NO LATEX RISK : HAVE YOU EVER HAD ANY DIFFICULTY BREATHING OR HIVES AFTER EATING OR HANDLING ANY FRUITS, OR VEGETABLES; SUCH KIWI, BANANAS, STONE FRUITS, OR CHESTNUTSNO LATEX RISK : DO YOU HAVE A PREVIOUS PERSONAL HISTORY OF MORE THAN NINE SURGERIES, SPINA BIFIDA, OR REPEATED CATHERTIZATIONS? NO LATEX RISK : ARE YOU FREQUENTLY EXPOSED TO LATEX PRODUCTS IN YOUR OCCUPATION?NO DATE ASKED : 08/31/2018 ADVANCE DIRECTIVE ADVANCE DIRECTIVE DISCUSSED WITH PATIENT:YES HCP MELODY JEAN BAPTISTE [phone] CHEONDOISM [id number] MANDAEISM MARITAL STATUS: SINGLE, .. ALCOHOL SCREENING DID YOU HAVE A DRINK CONTAINING ALCOHOL IN THE PAST YEAR?YES HOW OFTEN DID YOU HAVE A DRINK CONTAINING ALCOHOL IN THE PAST YEAR?MONTHLY OR LESS (1 POINT) HOW MANY DRINKS DID YOU HAVE ON A TYPICAL DAY WHEN YOU WERE DRINKING IN THE PAST YEAR?1 OR 2 (0 POINTS) HOW OFTEN DID YOU HAVE SIX OR MORE DRINKS ON ONE OCCASION IN THE PAST YEAR?NEVER (0 POINTS) POINTS1 INTERPRETATIONNEGATIVE OCCUPATION: RETIRED. REVIEWED WITH PATIENT 02/02/18 1124 JSREVIEWED WITH PT 03/09/18 1449 BVREVIEWED WITH PATIENT 04/15/18 1437 JSREVIEWED WITH PT 08/04/18 1256 BVREVIEWED WITH PT 08/31/18 0990 BV. HOSPITALIZATION/MAJOR DIAGNOSTIC PROCEDURE CHILDBEARING REVIEW OF SYSTEMS REVIEWED BY: PROVIDER: MARCO FULLER . CONSTITUTIONAL: ANY CHANGE IN YOUR MEDICAL CONDITION? NO . CHILLS NO . FEVER NO . INFECTION: DO YOU HAVE NEW INFECTIONS? NO . DO YOU HAVE HISTORY OF MRSA? NO . MUSCULOSKELETAL: ANY NEW PATTERNS OF PAIN OR NUMBNESS? NO . GASTROENTEROLOGY: ANY NEW CHANGE IN BOWEL CONTROL? NO . GENITOURINARY: ANY NEW CHANGE IN BLADDER CONTROL? YES, PT COMPLAINS OF STRESS INCONTINENCE, STATES SHE HAS HISTORY OF THIS FOR YEARS, BUT IS GETTING WORSE., STATES SHE HAS BEEN DISCUSSING THIS WITH PRIMARY DOCTOR . IS THERE A CHANCE YOU COULD BE ? NO . HEMATOLOGY/LYMPH: DO YOU TAKE ANY BLOOD THINNERS? (FOR EXAMPLE- COUMADIN, PLAVIX, AGGRENOX, PLATEL, PRADAXA, OR XARELTO) NO . WHEN WAS YOUR LAST DOSE? DATE: TIME: . NEUROLOGY: HAVE YOU FALLEN IN THE PAST 12 MONTHS? NO . ANY NEW EXTREMITY NUMBNESS OR WEAKNESS? YES, PT COMPLAINS OF NEW NUMBNESS AND TINGLING IN LEFT LEG THAT SEEMS TO RADIATE FROM LOW BACK ALL THE WAY DOWN LEFT LEG. STATES THIS IS NEW TO HER FOR THE PAST 3 WEEKS . CARDIOLOGY: DO YOU HAVE A PACEMAKER OR DEFIBRILLATOR? NO . RESPIRATORY: HAVE YOU BEEN SICK IN THE PAST WEEK? NO . FEVER NO . FLU LIKE SYMPTOMS? NO . COUGH NO . INTEGUMENTARY: DO YOU HAVE ANY RASHES OR OPEN SORES? NO . ALLERGIC/IMMUNO: ARE YOU ALLERGIC TO IV DYE? NO . ANY NEW ALLERGIES? NO . PSYCHIATRIC: DO YOU HAVE THOUGHTS OF HURTING YOURSELF OR SOMEONE ELSE? NO . ARE YOU ABUSED, NEGLECTED, OR IN AN UNSAFE ENVIRONMENT? NO . ENDOCRINOLOGY: ARE YOU DIABETIC? NO . OTHER: DO YOU NEED ANY PRESCRIPTIONS? YES, TRAMADOL . IF YES, PLEASE LIST: ____ . ANY NEW PROBLEMS WITH YOUR MEDICATIONS? NO . WHEN DID YOU LAST EAT? ____ . WHEN DID YOU LAST DRINK? ____ . WHAT DID YOU LAST DRINK? ____ . NAME OF PERSON DRIVING YOU HOME? ____ . DO YOU HAVE ANY OTHER QUESTIONS OR CONCERNS NO . VITAL SIGNS WT 247.2 LBS, HT 63 IN, BMI 43.78 INDEX, BP 128/69 MM HG, HR 71 /MIN, RR 18 /MIN, TEMP 96.6 F, OXYGEN SAT % 98%, NA INITIALS SC 09:16, REVIEWED BY: GRAEME. EXAMINATION GENERAL EXAMINATION: GENERAL APPEARANCE: AWAKE,ALERT ,PLEAASANT . PSYCH AFFECT NORMAL . LUNGS: LUNG LICEA ARE CLEAR TO AUSCULTATION BILATERALLY. GOOD MOVEMENT OF AIR . HEART: S1, S2 IN A REGULAR RATE AND RHYTHM. NO SIGNIFICANT MURMURS, RUBS OR GALLOPS NOTED . LUMBAR SACRAL SPINE PALPATION: + FOR PAIN OVER L/S SPINE. + FOR PAIN OVER L/S PARASPINALS. NEUROLOGIC EXAM: NORMAL SENSATION LIGHT TOUCH BILAT. LOWER EXTREMITIES. ASSESSMENTS LOW BACK PAIN AT MULTIPLE SITES - M54.5 (PRIMARY) FIBROMYALGIA - M79.7 BILATERAL OCCIPITAL NEURALGIA - M54.81 TREATMENT LOW BACK PAIN AT MULTIPLE SITES CONTINUE CYMBALTA CAPSULE DELAYED RELEASE PARTICLES, 60 MG, 1 CAPSULE, ORALLY, ONCE A DAY CONTINUE GABAPENTIN TABLET, 600 MG, 1 CAPSULE, ORALLY, THREE TIMES A DAY CONTINUE TRAMADOL HCL TABLET, 50 MG, 1 -2 TABLET NEEDED, ORALLY, EVERY 6 HRS MDD=6 CODE D CHRONIC PAIN START LYRICA CAPSULE, 100 MG, 1 CAPSULE, ORALLY, THREE TIMES A DAY, 30 DAY(S), 90 CAPSULE, REFILLS 5 ROBERT SPINE LS [id number] NOTES: ISTOP REGISTRY REVIEWED AND DEMONSTRATES COMPLLIANCE. (REF # ) BRINGS IN MEDICATIONS WHICH IS APPROPRIATE FOR WHAT WAS DISPENSED. RECENT URINE TOXICOLOGY REVIEWED. NO UNAUTHORIZED MEDICATIONS. NO ILLICIT SUBSTANCES AND PRESCRIBED MEDICATIONS WERE PRESENT. [id number] TOX TODAY, RISKS AND BENEFITS OF NARCOTIC/OPIOD MEDICATIONS WERE REVIEWED WITH PATIENT - THIS INCLUDES BUT IS NOT LIMITED TO RISK OF DEPENDANCE/DEVELOPMENT OF ADDICTION, MOOD DISTURBANCE AND DEPRESSION, OSTEOPOROSIS, HORMONAL AND LABIDAL CHANGES, RESPIRATORY DEPRESSION AND . PATIENT IS ADVISED NOT TO DRIVE OR DRINK ALCOHOL WHILE ON THESE MEDICATIONSPT 2XWK X6 WK LOW BACK REHABDUE TO PERSISTENT FIBROMYALGIA PAIN DESPITE 1800MG GABAPENTIN AND CYMBALTA 60MG TAB QD X MANY YEARS IT IS MEDICALLY NECESSARY TO TRIAL LYRICA.IT WOULD BE OUR GOAL TO DISCONTINUE GABAPENTIN ONCE STARTED ON LYRICA. PREVENTIVE MEDICINE PAIN CLINIC TEACHING: MEDICATIONS PT GIVEN WRITTEN AND VERBAL EDUCATION ON LYRICA. PT VERBALIZES UNDERSTANDING OF ALL EDUCATION. GORAN PAULSON 08/31/2018 10:09AM > . PROCEDURE CODES FA211 ESTABILISHED PATIENT [facility] CHARGE DISPOSITION & COMMUNICATION FOLLOW UP 10 WKS ELECTRONICALLY SIGNED BY ALINA SPIVEY ON 09/15/2018 AT 08:56 AM EDT DISCLAIMER : THIS IS A VISIT SUMMARY EXTRACTED FROM THE [employer] CHART. IT IS NOT A COPY OF THE [employer] PROGRESS NOTE. [place]
== END ==
LOC: M PAIN 09:30
PROVIDERS: ATTEND Nurse Practitioner Family
DX: M54.81 Occipital neuralgia (principal); M79.7 Fibromyalgia; I12.9 Hypertensive chronic kidney disease with stage 1 through stage 4 chronic kidney disease, or unspecified chronic kidney disease; N18.3 Chronic kidney disease, stage 3 (moderate); E78.5 Hyperlipidemia, unspecified; G47.33 Obstructive sleep apnea (adult) (pediatric); J30.2 Other seasonal allergic rhinitis; E66.01 Morbid (severe) obesity due to excess calories; Z68.41 Body mass index [BMI] 40.0-44.9, adult; Z79.82 Long term (current) use of aspirin; Z79.899 Other long term (current) drug therapy; Z88.8 Allergy status to other drugs, medicaments and biological substances; Z87.891 Personal history of nicotine dependence

== ENCOUNTER → 2018-08-31 | Outpatient (CLI) | payer MEDICARE ==
--- NOTE | 2018-09-01 02:43 | REP ---
Clinical: Lower back pain. Technique: AP, lateral, bilateral oblique and coned-down views of the lumbosacral spine. Findings: Moderate multilevel degenerative changes include endplate sclerosis, marginal spurring/osteophyte formation, and moderate hypertrophic facet changes along with mild disc space narrowing. Alignment is maintained. No acute fracture / compression injury or subluxation. Impression: Moderate multilevel degenerative spondylosis. Electronically Signed by Kody Mullins MD 09/01/2018 02:35 A
== END ==
LOC: M RAD 10:38
PROVIDERS: ATTEND Nurse Practitioner Family
DX: M47.897 Other spondylosis, lumbosacral region (principal); M25.78 Osteophyte, vertebrae

== ENCOUNTER 2018-09-22 12:44 | Outpatient (RCR) | payer MEDICARE, OTHER | END 2018-10-01 | LOC: M PT 12:44 | PROVIDERS: ATTEND Nurse Practitioner Family | DX: M54.5 Low back pain (principal) ==

== ENCOUNTER 2018-10-28 14:18 | Outpatient (RCR) | payer MEDICARE | END 2018-10-31 | LOC: M PT 14:18 | PROVIDERS: ATTEND Nurse Practitioner Family | DX: M54.5 Low back pain (principal) ==

== ENCOUNTER → 2018-11-09 | Outpatient (CLI) | payer MEDICARE ==
--- NOTE | 2018-11-23 02:39 | ECWPNPC ---
PATIENT NAME: KENTON HUTCHINS : 1960 GENDER: FEMALE VISIT DATE: 11/09/2018 DISCHARGE DATE: 11/09/18 1141 VISIT LOCKED DATE TIME: PHYSICIAN: MARCO PEACE RESOURCE: MARCO PEACE REASON FOR APPOINTMENT 1. BACK PAIN HISTORY OF PRESENT ILLNESS HISTORY OF PRESENT ILLNESS: HERE FOR F/U OF CHRONIC LBP.HAS NOT PICKED UP LYRICA PRESCRIBED IN SEPTEMBER.ATTENDING PT PER OUR REFERRAL WHICH HAS HELPED LBP BUT HAS AGGREVATED HER KNEES.WILL BE SEEING ORTHO FOR KNEES.RATING BACK PAIN 11/10. PAIN THE PATIENT DESCRIBES THE PAIN... FALL RISK SCREENING: SCREENING :NO FALLS REPORTED IN THE LAST YEAR CURRENT MEDICATIONS TAKING ASPIR-81 81 MG TABLET DELAYED RELEASE 1 TABLET P.O. ONCE A DAY TAKING LIPITOR 10 MG TABLET 1 TABLET ORALLY ONCE A DAY TAKING MONTELUKAST SODIUM 10 MG TABLET 1 TABLET IN THE EVENING ORALLY ONCE A DAY TAKING LISINOPRIL 10 MG TABLET 1 TABLET ORALLY ONCE A DAY TAKING TYLENOL 8 HOUR 650 MG TABLET EXTENDED RELEASE 2 TABLETS NEEDED ORALLY EVERY 8 HRS TAKING MAY USE CBD OIL ONCE DAILY TAKING CYMBALTA 60 MG CAPSULE DELAYED RELEASE PARTICLES 1 CAPSULE ORALLY ONCE A DAY TAKING GABAPENTIN 600 MG TABLET 1 CAPSULE ORALLY THREE TIMES A DAY TAKING TRAMADOL HCL 50 MG TABLET 1 -2 TABLET NEEDED ORALLY EVERY 6 HRS MDD=6 CODE D CHRONIC PAIN NOT-TAKING METOPROLOL SUCCINATE ER 50 MG TABLET EXTENDED RELEASE 24 HOUR 1 TABLET ORALLY ONCE A DAY NOT-TAKING LYRICA 100 MG CAPSULE 1 CAPSULE ORALLY THREE TIMES A DAY NOT-TAKING LYRICA 100 MG CAPSULE 1 CAPSULE ORALLY THREE TIMES A DAY NOT-TAKING VENTOLIN HFA 108 (90 BASE) MCG/ACT AEROSOL SOLUTION 2 PUFFS NEEDED INHALATION EVERY 4 HRS, NOTES: WEEKS AGO NOT-TAKING LIDOCAINE 5 % OINTMENT 1 APPLICATION TO AFFECTED AREA NEEDED EXTERNALLY THREE TIMES A DAY NOT-TAKING FUROSEMIDE 20 MG TABLET 1 TABLET ORALLY ONCE A DAY NOT-TAKING SOMA 350 MG TABLET 1 TABLET NEEDED ORALLY BEFORE BEDTIME MEDICATION LIST REVIEWED AND RECONCILED WITH THE PATIENT PAST MEDICAL HISTORY DEPRESSION BACK PAIN, INJURY HTN HYPERLIPIDEMIA OBSTRUCTIVE SLEEP APNEA HX OF ENDOMETRIOSIS AND ABNORMAL PAP SMEARS SEASONAL ALLERGIES STAGE 3 KIDNEY DISEASE ALLERGIES ZONISAMIDE: ELEVATED KIDNEY LEVELS SURGICAL HISTORY PARTIAL HYSTERECTOMY 1994 BREAST BIOPSY BENIGN TUBAL LIGATION 1983 RIGHT KNEE SURGERY FAMILY HISTORY FATHER: 53 YRS, DIAGNOSED WITH HYPERTENSION, HEART DISEASE MOTHER: 76 YRS, DIABETES, HYPERTENSION 5 BROTHER(S) , 3 SISTER(S) - HEALTHY. 1 SISTER FROM MVA\\NDAUGHTER - RHEUMATOID ARTHRITIS. SOCIAL HISTORY GENERAL: TOBACCO USE ARE YOU A:FORMER SMOKER HOW LONG HAS IT BEEN SINCE YOU LAST SMOKED?1-5 YEARS OTHERS AT HOME: OTHER NON-RELATIVE. HOUSING: OWNS MOBILE HOME. DIET: REGULAR. LANGUAGE LANGUAGES SPOKEN:NAURUAN RECREATIONAL DRUG USE DRUG USE?NO LEARNING BARRIERS / SPECIAL NEEDS CHANGE FROM LAST VISIT?NO BARRIERS TO LEARNING?NO HEARING IMPAIRED?NO VISION IMPAIRED?YES :CORRECTIVE LENSES COGNITIVELY IMPAIRED?NO READINESS TO LEARN?YES LEARNING PREFERENCES?NO LEARNING CAPABILITIES PRESENT?YES EMOTIONAL BARRIERS?NO SPECIAL DEVICES?NO BOTTLE FEEDER NEEDED?NO PAIN CLINIC PFS, CLERGY, PUBLIC HEALTH REFERRALS PFS REFERRAL NEEDED?NO CLERGY REFERRAL NEEDED?NO PUBLIC HEALTH REFERRAL NEEDED?NO WAS THE PROVIDER NOTIFIED OF ANY PERTINENT INFO?NO HAS THE PATIENT BEEN EDUCATED REGARDING HIS/HER PLAN OF CARE?YES HAS THE PATIENT BEEN EDUCATED REGARDING PAIN, THE RISK FOR PAIN, THE IMPORTANCE OF EFFECTIVE PAIN MANAGEMENT, AND THE PAIN ASSESSMENT PROCESS?YES LATEX QUESTIONNAIRE LATEX ALLERGY : HAVE YOU EVER DEVELOPED ANY TYPE OF REACTION AFTER HANDLING LATEX PRODUCTS SUCH RUBBER GLOVES, CONDOMS, DIAPHRAGMS, BALLOONS, SOCKS, OR UNDERWEAR?NO LATEX ALLERGY : HAVE YOU EVER DEVELOPED ANY TYPE OF REACTION DURING OR AFTER DENTAL APPOINTMENT, VAGINAL/RECTAL EXAMINATION, SURGICAL PROCEDURE, OR ANY OTHER EXPOSURE?NO LATEX RISK : HAVE YOU EVER HAD ANY DIFFICULTY BREATHING OR HIVES AFTER EATING OR HANDLING ANY FRUITS, OR VEGETABLES; SUCH KIWI, BANANAS, STONE FRUITS, OR CHESTNUTSNO LATEX RISK : DO YOU HAVE A PREVIOUS PERSONAL HISTORY OF MORE THAN NINE SURGERIES, SPINA BIFIDA, OR REPEATED CATHERIZATIONS? NO LATEX RISK : ARE YOU FREQUENTLY EXPOSED TO LATEX PRODUCTS IN YOUR OCCUPATION?NO DATE ASKED : 08/31/2018 ADVANCE DIRECTIVE ADVANCE DIRECTIVE DISCUSSED WITH PATIENT:YES HCP MELODY JEAN BAPTISTE [phone] SPIRITISM [id number] JEHOVAH'S WITNESS MARITAL STATUS: SINGLE, .. ALCOHOL SCREENING DID YOU HAVE A DRINK CONTAINING ALCOHOL IN THE PAST YEAR?YES HOW OFTEN DID YOU HAVE A DRINK CONTAINING ALCOHOL IN THE PAST YEAR?MONTHLY OR LESS (1 POINT) HOW MANY DRINKS DID YOU HAVE ON A TYPICAL DAY WHEN YOU WERE DRINKING IN THE PAST YEAR?1 OR 2 (0 POINTS) HOW OFTEN DID YOU HAVE SIX OR MORE DRINKS ON ONE OCCASION IN THE PAST YEAR?NEVER (0 POINTS) POINTS1 INTERPRETATIONNEGATIVE OCCUPATION: RETIRED. REVIEWED WITH PATIENT 02/02/18 1124 JSREVIEWED WITH PT 03/09/18 1449 BVREVIEWED WITH PATIENT 04/15/18 1437 JSREVIEWED WITH PT 08/04/18 1256 BVREVIEWED WITH PT 08/31/18 0927 BVREVIEWED WITH PT 11/09/18 KATHARINE. HOSPITALIZATION/MAJOR DIAGNOSTIC PROCEDURE [facility]- BILATERAL KNEE PAIN, NO NEW MEDICATIONS- HAS APPT WITH [facility] SCHEDULED FOR 11/15/1811/2018 REVIEW OF SYSTEMS REVIEWED BY: PROVIDER: MARCO FULLER . CONSTITUTIONAL: ANY CHANGE IN YOUR MEDICAL CONDITION? NO . CHILLS NO . FEVER NO . INFECTION: DO YOU HAVE NEW INFECTIONS? NO . DO YOU HAVE HISTORY OF MRSA? NO . MUSCULOSKELETAL: ANY NEW PATTERNS OF PAIN OR NUMBNESS? YES- BILATERAL KNEES AND LEGS NUMBNESS/TINGLING AND PAIN . GASTROENTEROLOGY: ANY NEW CHANGE IN BOWEL CONTROL? NO . GENITOURINARY: ANY NEW CHANGE IN BLADDER CONTROL? YES- URGENCY FIRST THING IN THE MORNING, AND CONTINUES THROUGHOUT DAY . IS THERE A CHANCE YOU COULD BE ? NO . HEMATOLOGY/LYMPH: DO YOU TAKE ANY BLOOD THINNERS? (FOR EXAMPLE- COUMADIN, PLAVIX, AGGRENOX, PLATEL, PRADAXA, OR XARELTO) NO . WHEN WAS YOUR LAST DOSE? DATE: TIME: . NEUROLOGY: HAVE YOU FALLEN IN THE PAST 12 MONTHS? YES- FELL FEBRUARY/2017 FELL AT FRIENDS HOUSE GOING UP THE STAIRS,PT STATES NO INJURIES,DID NOT SEEK MEDICAL CARE AFTER . ANY NEW EXTREMITY NUMBNESS OR WEAKNESS? YES- BILATERAL KNEES AND LEGS PAIN, NUMBNESS/TINGLING WHICH IS WORSENING-PT IS RECEIVING PT- FOR BACK AT THIS TIME 2 TIMES A WEEK BUT STATES SHE DOESN'T THINK IT HELPS STATES SHE FEELS LIKE PAIN IS WORSE, AND WISHES TO STOP . CARDIOLOGY: DO YOU HAVE A PACEMAKER OR DEFIBRILLATOR? NO . RESPIRATORY: HAVE YOU BEEN SICK IN THE PAST WEEK? NO . FEVER NO . FLU LIKE SYMPTOMS? NO . COUGH NO . INTEGUMENTARY: DO YOU HAVE ANY RASHES OR OPEN SORES? NO . ALLERGIC/IMMUNO: ARE YOU ALLERGIC TO IV DYE? NO . ANY NEW ALLERGIES? NO . PSYCHIATRIC: DO YOU HAVE THOUGHTS OF HURTING YOURSELF OR SOMEONE ELSE? NO . ARE YOU ABUSED, NEGLECTED, OR IN AN UNSAFE ENVIRONMENT? NO . ENDOCRINOLOGY: ARE YOU DIABETIC? NO . OTHER: DO YOU NEED ANY PRESCRIPTIONS? YES- THINKS SHE NEEDS TRAMADOL . IF YES, PLEASE LIST: ____ . ANY NEW PROBLEMS WITH YOUR MEDICATIONS? NO . WHEN DID YOU LAST EAT? ____ . WHEN DID YOU LAST DRINK? ____ . WHAT DID YOU LAST DRINK? ____ . NAME OF PERSON DRIVING YOU HOME? ____ . DO YOU HAVE ANY OTHER QUESTIONS OR CONCERNS YES- REGARDING PT . VITAL SIGNS WT 246.4 LBS, HT 63 IN, BMI 43.64 INDEX, BP 142/63 MM HG, HR 89 /MIN, RR 18 /MIN, TEMP 97.3 F, OXYGEN SAT % 97%, SAFE IN ENV? (Y/N) YES, NA INITIALS AW 1048. EXAMINATION GENERAL EXAMINATION: GENERALAWAKE,ALERT ,PLEAASANT . PSYCHAFFECT NORMAL . LUNGS:LUNG LICEA ARE CLEAR TO AUSCULTATION BILATERALLY. GOOD MOVEMENT OF AIR . HEART:S1, S2 IN A REGULAR RATE AND RHYTHM. NO SIGNIFICANT MURMURS, RUBS OR GALLOPS NOTED . ASSESSMENTS LOW BACK PAIN AT MULTIPLE SITES - M54.5 (PRIMARY) FIBROMYALGIA - M79.7 BILATERAL OCCIPITAL NEURALGIA - M54.81 TREATMENT LOW BACK PAIN AT MULTIPLE SITES REFILL LYRICA CAPSULE, 100 MG, 1 CAPSULE, ORALLY, THREE TIMES A DAY, 30 DAY(S), 90 CAPSULE, REFILLS 5 STOP GABAPENTIN TABLET, 600 MG, 1 CAPSULE, ORALLY, THREE TIMES A DAY NOTES: STOP PT. PROCEDURE CODES FA211 ESTABILISHED PATIENT [facility] CHARGE DISPOSITION & COMMUNICATION FOLLOW UP 2 MONTHS (REASON: MED MGMNT) ELECTRONICALLY SIGNED BY ALINA SPIVEY ON 11/22/2018 AT 08:41 AM EDT DISCLAIMER : THIS IS A VISIT SUMMARY EXTRACTED FROM THE [employer] CHART. IT IS NOT A COPY OF THE [employer] PROGRESS NOTE. ALBAN
== END ==
LOC: M PAIN 10:15
PROVIDERS: ATTEND Nurse Practitioner Family
DX: M54.5 Low back pain (principal); M79.7 Fibromyalgia; F32.9 Major depressive disorder, single episode, unspecified; I12.9 Hypertensive chronic kidney disease with stage 1 through stage 4 chronic kidney disease, or unspecified chronic kidney disease; E78.5 Hyperlipidemia, unspecified; G47.33 Obstructive sleep apnea (adult) (pediatric); N18.4 Chronic kidney disease, stage 4 (severe); Z87.891 Personal history of nicotine dependence; Z79.82 Long term (current) use of aspirin; Z79.891 Long term (current) use of opiate analgesic; Z79.899 Other long term (current) drug therapy; Z88.8 Allergy status to other drugs, medicaments and biological substances

== ENCOUNTER → 2019-01-14 | Outpatient (CLI) | payer MEDICARE ==
--- NOTE | 2019-01-29 02:02 | ECWPNPC ---
PATIENT NAME: KENTON HUTCHINS : 1960 GENDER: FEMALE VISIT DATE: 01/14/2019 DISCHARGE DATE: 01/14/19 1124 VISIT LOCKED DATE TIME: PHYSICIAN: MARCO PEACE RESOURCE: MARCO PEACE REASON FOR APPOINTMENT 1. MED MGMT HISTORY OF PRESENT ILLNESS HISTORY OF PRESENT ILLNESS: HERE FOR F/U OF CHRONIC NECK AND LBP.CHIEF AREA OF PAIN IS NECK AND SHOULDERS.-RIGHT SIDE.RATING PAIN VAS 5-7/10.HAVING SOME IMPROVEMENT IN PAIN CONTROL WITH LYRICA.PAIN IS IN NECK AND RADIATES TO RIGHT SHOULDER.NO IMAGING FOUND OF C-SPINE.USING TRAMADOL INFREQUENTLY FOR SEVERE PAIN EPISODES. PAIN THE PATIENT DESCRIBES THE PAIN... FALL RISK SCREENING: SCREENING :NO FALLS REPORTED IN THE LAST YEAR CURRENT MEDICATIONS TAKING ASPIR-81 81 MG TABLET DELAYED RELEASE 1 TABLET P.O. ONCE A DAY TAKING LIPITOR 10 MG TABLET 1 TABLET ORALLY ONCE A DAY TAKING MONTELUKAST SODIUM 10 MG TABLET 1 TABLET IN THE EVENING ORALLY ONCE A DAY TAKING LISINOPRIL 10 MG TABLET 1 TABLET ORALLY ONCE A DAY TAKING TYLENOL 8 HOUR 650 MG TABLET EXTENDED RELEASE 2 TABLETS NEEDED ORALLY EVERY 8 HRS TAKING MAY USE CBD OIL ONCE DAILY TAKING CYMBALTA 60 MG CAPSULE DELAYED RELEASE PARTICLES 1 CAPSULE ORALLY ONCE A DAY TAKING LYRICA 100 MG CAPSULE 1 CAPSULE ORALLY THREE TIMES A DAY TAKING TRAMADOL HCL 50 MG TABLET 1 -2 TABLET NEEDED ORALLY EVERY 6 HRS MDD=6 CODE D CHRONIC PAIN NOT-TAKING METOPROLOL SUCCINATE ER 50 MG TABLET EXTENDED RELEASE 24 HOUR 1 TABLET ORALLY ONCE A DAY NOT-TAKING LYRICA 100 MG CAPSULE 1 CAPSULE ORALLY THREE TIMES A DAY NOT-TAKING VENTOLIN HFA 108 (90 BASE) MCG/ACT AEROSOL SOLUTION 2 PUFFS NEEDED INHALATION EVERY 4 HRS, NOTES: WEEKS AGO NOT-TAKING LIDOCAINE 5 % OINTMENT 1 APPLICATION TO AFFECTED AREA NEEDED EXTERNALLY THREE TIMES A DAY NOT-TAKING FUROSEMIDE 20 MG TABLET 1 TABLET ORALLY ONCE A DAY NOT-TAKING SOMA 350 MG TABLET 1 TABLET NEEDED ORALLY BEFORE BEDTIME MEDICATION LIST REVIEWED AND RECONCILED WITH THE PATIENT PAST MEDICAL HISTORY DEPRESSION BACK PAIN, INJURY HTN HYPERLIPIDEMIA OBSTRUCTIVE SLEEP APNEA HX OF ENDOMETRIOSIS AND ABNORMAL PAP SMEARS SEASONAL ALLERGIES STAGE 3 KIDNEY DISEASE ALLERGIES ZONISAMIDE: ELEVATED KIDNEY LEVELS SURGICAL HISTORY PARTIAL HYSTERECTOMY 1994 BREAST BIOPSY BENIGN TUBAL LIGATION 1984 RIGHT KNEE SURGERY FAMILY HISTORY FATHER: 53 YRS, DIAGNOSED WITH HYPERTENSION, UNSPECIFIED HEART DISEASE MOTHER: 76 YRS, DIABETES, HYPERTENSION 5 BROTHER(S) , 3 SISTER(S) - HEALTHY. 1 SISTER FROM MVA\\NDAUGHTER - RHEUMATOID ARTHRITIS. SOCIAL HISTORY GENERAL: TOBACCO USE ARE YOU A:FORMER SMOKER HOW LONG HAS IT BEEN SINCE YOU LAST SMOKED?1-5 YEARS OTHERS AT HOME: OTHER NON-RELATIVE. HOUSING: OWNS MOBILE HOME. DIET: REGULAR. LANGUAGE LANGUAGES SPOKEN:SLOVENIAN RECREATIONAL DRUG USE DRUG USE?NO LEARNING BARRIERS / SPECIAL NEEDS CHANGE FROM LAST VISIT?NO BARRIERS TO LEARNING?NO HEARING IMPAIRED?NO VISION IMPAIRED?YES COGNITIVELY IMPAIRED?NO :CORRECTIVE LENSES READINESS TO LEARN?YES LEARNING PREFERENCES?NO LEARNING CAPABILITIES PRESENT?YES EMOTIONAL BARRIERS?NO SPECIAL DEVICES?NO OUTPATIENT CODER NEEDED?NO PAIN CLINIC PFS, CLERGY, PUBLIC HEALTH REFERRALS PFS REFERRAL NEEDED?NO CLERGY REFERRAL NEEDED?NO PUBLIC HEALTH REFERRAL NEEDED?NO WAS THE PROVIDER NOTIFIED OF ANY PERTINENT INFO?NO HAS THE PATIENT BEEN EDUCATED REGARDING HIS/HER PLAN OF CARE?YES HAS THE PATIENT BEEN EDUCATED REGARDING PAIN, THE RISK FOR PAIN, THE IMPORTANCE OF EFFECTIVE PAIN MANAGEMENT, AND THE PAIN ASSESSMENT PROCESS?YES LATEX QUESTIONNAIRE LATEX ALLERGY : HAVE YOU EVER DEVELOPED ANY TYPE OF REACTION AFTER HANDLING LATEX PRODUCTS SUCH RUBBER GLOVES, CONDOMS, DIAPHRAGMS, BALLOONS, SOCKS, OR UNDERWEAR?NO LATEX ALLERGY : HAVE YOU EVER DEVELOPED ANY TYPE OF REACTION DURING OR AFTER DENTAL APPOINTMENT, VAGINAL/RECTAL EXAMINATION, SURGICAL PROCEDURE, OR ANY OTHER EXPOSURE?NO DATE ASKED : 08/31/2018 LATEX RISK : HAVE YOU EVER HAD ANY DIFFICULTY BREATHING OR HIVES AFTER EATING OR HANDLING ANY FRUITS, OR VEGETABLES; SUCH KIWI, BANANAS, STONE FRUITS, OR CHESTNUTSNO LATEX RISK : DO YOU HAVE A PREVIOUS PERSONAL HISTORY OF MORE THAN NINE SURGERIES, SPINA BIFIDA, OR REPEATED CATHERIZATIONS? NO LATEX RISK : ARE YOU FREQUENTLY EXPOSED TO LATEX PRODUCTS IN YOUR OCCUPATION?NO ADVANCE DIRECTIVE ADVANCE DIRECTIVE DISCUSSED WITH PATIENT:YES HCP MELODY JEAN BAPTISTE [phone] HINDU [id number] VOODOO MARITAL STATUS: SINGLE, .. ALCOHOL SCREENING DID YOU HAVE A DRINK CONTAINING ALCOHOL IN THE PAST YEAR?YES HOW OFTEN DID YOU HAVE SIX OR MORE DRINKS ON ONE OCCASION IN THE PAST YEAR?NEVER (0 POINTS) HOW MANY DRINKS DID YOU HAVE ON A TYPICAL DAY WHEN YOU WERE DRINKING IN THE PAST YEAR?1 OR 2 (0 POINTS) HOW OFTEN DID YOU HAVE A DRINK CONTAINING ALCOHOL IN THE PAST YEAR?MONTHLY OR LESS (1 POINT) POINTS1 INTERPRETATIONNEGATIVE OCCUPATION: RETIRED. REVIEWED WITH PATIENT 02/02/18 1124 JSREVIEWED WITH PT 03/09/18 1449 BVREVIEWED WITH PATIENT 04/15/18 1437 JSREVIEWED WITH PT 08/04/18 1256 BVREVIEWED WITH PT 08/31/18 0927 BVREVIEWED WITH PATIENT 01/14/19 1052 LASREVIEWED WITH PT 11/09/18 NLJ. HOSPITALIZATION/MAJOR DIAGNOSTIC PROCEDURE [facility]- BILATERAL KNEE PAIN, NO NEW MEDICATIONS- HAS APPT WITH [facility] SCHEDULED FOR 11/15/1811/2018 REVIEW OF SYSTEMS REVIEWED BY: PROVIDER: MARCO FULLER . CONSTITUTIONAL: ANY CHANGE IN YOUR MEDICAL CONDITION? NO . CHILLS NO . FEVER NO . INFECTION: DO YOU HAVE NEW INFECTIONS? NO . DO YOU HAVE HISTORY OF MRSA? NO . MUSCULOSKELETAL: ANY NEW PATTERNS OF PAIN OR NUMBNESS? NO . GASTROENTEROLOGY: ANY NEW CHANGE IN BOWEL CONTROL? NO . GENITOURINARY: ANY NEW CHANGE IN BLADDER CONTROL? YES PT REPORTS INCREASED URGENCY, ESPECIALLY IN THE MORNING . IS THERE A CHANCE YOU COULD BE ? NO . HEMATOLOGY/LYMPH: DO YOU TAKE ANY BLOOD THINNERS? (FOR EXAMPLE- COUMADIN, PLAVIX, AGGRENOX, PLATEL, PRADAXA, OR XARELTO) NO . WHEN WAS YOUR LAST DOSE? DATE: TIME: . NEUROLOGY: HAVE YOU FALLEN IN THE PAST 12 MONTHS? NO . ANY NEW EXTREMITY NUMBNESS OR WEAKNESS? NO . CARDIOLOGY: DO YOU HAVE A PACEMAKER OR DEFIBRILLATOR? NO . RESPIRATORY: HAVE YOU BEEN SICK IN THE PAST WEEK? NO . FEVER NO . FLU LIKE SYMPTOMS? NO . COUGH NO . INTEGUMENTARY: DO YOU HAVE ANY RASHES OR OPEN SORES? NO . ALLERGIC/IMMUNO: ARE YOU ALLERGIC TO IV DYE? NO . ANY NEW ALLERGIES? NO . PSYCHIATRIC: DO YOU HAVE THOUGHTS OF HURTING YOURSELF OR SOMEONE ELSE? NO . ARE YOU ABUSED, NEGLECTED, OR IN AN UNSAFE ENVIRONMENT? NO . ENDOCRINOLOGY: ARE YOU DIABETIC? NO . OTHER: DO YOU NEED ANY PRESCRIPTIONS? NO . IF YES, PLEASE LIST: ____ . ANY NEW PROBLEMS WITH YOUR MEDICATIONS? NO . WHEN DID YOU LAST EAT? ____ . WHEN DID YOU LAST DRINK? ____ . WHAT DID YOU LAST DRINK? ____ . NAME OF PERSON DRIVING YOU HOME? ____ . DO YOU HAVE ANY OTHER QUESTIONS OR CONCERNS NO . VITAL SIGNS WT 250.0 LBS, HT 63 IN, BMI 44.28 INDEX, BP 134/66 MM HG, HR 78 /MIN, RR 18 /MIN, TEMP 97.0 F, OXYGEN SAT % 98%, SAFE IN ENV? (Y/N) YES, NA INITIALS AW 1050, REVIEWED BY: YOLANDA. EXAMINATION GENERAL EXAMINATION: GENERALAWAKE,ALERT ,PLEAASANT . PSYCHAFFECT NORMAL . LUNGS:LUNG LICEA ARE CLEAR TO AUSCULTATION BILATERALLY. GOOD MOVEMENT OF AIR . HEART:S1, S2 IN A REGULAR RATE AND RHYTHM. NO SIGNIFICANT MURMURS, RUBS OR GALLOPS NOTED . CERVICALSPECIFIC POINT TENDERNESS OVER BILAT. OCCIPITAL NERVES , + FOR PAIN WITH PALPATION OF CERVICAL SPINE. + FOR PAIN WITH PALPATION OF CERVICAL PARASPINALS. + FOR PAIN WITH PALPATION OF TRAPEZIUS BILAT R>L. ASSESSMENTS CERVICALGIA - M54.2 (PRIMARY) TREATMENT CERVICALGIA INCREASE LYRICA CAPSULE, 200 MG, 1 CAPSULE, ORALLY, BID MDD2, 30 DAY(S), 60, REFILLS 5 CONTINUE TRAMADOL HCL TABLET, 50 MG, 1 -2 TABLET NEEDED, ORALLY, EVERY 6 HRS MDD=6 CODE D CHRONIC PAIN [facility] MRI SPINE, CERVICAL WITHOUT [id number],HEATHER L 01/24/2019 3:56:30 PM > JOVANNI SHARP 01/24/2019 2:41:00 PM > NO PRIOR AUTH REQUIRED, REF #: [id number] 01/24/2019 0920. PLEASE BOOK. NOTES: ISTOP REGISTRY REVIEWED AND DEMONSTRATES COMPLLIANCE. BRINGS IN MEDICATIONS WHICH IS APPROPRIATE FOR WHAT WAS DISPENSED. RECENT URINE TOXICOLOGY REVIEWED. NO UNAUTHORIZED MEDICATIONS. NO ILLICIT SUBSTANCES AND PRESCRIBED MEDICATIONS WERE PRESENT. , RISKS AND BENEFITS OF NARCOTIC/OPIOD MEDICATIONS: INCLUDES BUT IS NOT LIMITED TO RISK OF DEPENDANCE/DEVELOPMENT OF ADDICTION, MOOD DISTURBANCE AND DEPRESSION, OSTEOPOROSIS, HORMONAL AND LABIDAL CHANGES, RESPIRATORY DEPRESSION AND . PATIENT IS ADVISED NOT TO DRIVE OR DRINK ALCOHOL WHILE ON THESE MEDICATIONS. PROCEDURE CODES FA211 ESTABILISHED PATIENT [facility] CHARGE DISPOSITION & COMMUNICATION FOLLOW UP 6 WEEKS Anastacio LARA (REASON: NEEDS OPEN MRI C SPINE) ELECTRONICALLY SIGNED BY MARCO FULLER, ALINA ON 01/28/2019 AT 01:56 PM EDT DISCLAIMER : THIS IS A VISIT SUMMARY EXTRACTED FROM THE [employer] CHART. IT IS NOT A COPY OF THE [employer] PROGRESS NOTE. ALBAN
== END ==
LOC: M PAIN 10:15
PROVIDERS: ATTEND Nurse Practitioner Family
DX: M54.2 Cervicalgia (principal); G89.29 Other chronic pain; Z86.59 Personal history of other mental and behavioral disorders; I10 Essential (primary) hypertension; E78.5 Hyperlipidemia, unspecified; G47.33 Obstructive sleep apnea (adult) (pediatric); Z87.891 Personal history of nicotine dependence; Z88.8 Allergy status to other drugs, medicaments and biological substances; E66.01 Morbid (severe) obesity due to excess calories; Z68.41 Body mass index [BMI] 40.0-44.9, adult; Z79.82 Long term (current) use of aspirin; Z79.899 Other long term (current) drug therapy

== ENCOUNTER → 2019-02-11 | Outpatient (CLI) | payer MEDICARE ==
--- NOTE | 2019-02-11 12:47 | REP ---
MRI cervical spine without contrast: History: Neck pain. No comparison cervical spine imaging. Technique: Sagittal and axial T1 and T2-weighted scans are acquired in the usual fashion with and without fat saturation. Sequences include spin echo, turbo spin-echo, and STIR imaging sequences. MRI findings: There is straightening of the normal cervical lordosis. Craniocervical junction is normal. Cervical cord is normal in coarse, caliber and signal intensity. No extra spinal abnormality is noted. At the C2-3 level, there is no disc abnormality. Axial and sagittal images at the C3-4 level show mild central disc bulging effacing the ventral subarachnoid space and contacting the ventral margin of the cord. The central spinal canal is developmentally somewhat narrow. Midline AP dimension of the thecal sac at C3-4 is 8.6 mm. No cord compression is seen. At C4-C5, there is no disc protrusion. No cord compression lesion or neural foraminal narrowing is seen. Midline AP dimension of the thecal sac is 12 mm at C4- C5. At C5-C6, there is moderate diffuse disc bulging and there is bilateral uncovertebral spurring producing foraminal narrowing. The disc bulging effaces the ventral subarachnoid space. The mid line AP dimension of the thecal sac is 8.5 mm. Canal size is borderline. At C6-C7, there is a broad-based focal central disc protrusion effacing the ventral subarachnoid space and flattening the ventral margin of the cord in the midline. There is mild bilateral uncovertebral spurring at C6-7 as well. The canal size is somewhat narrowed. Midline AP dimension of the thecal sac is 7.2 mm. The C7-T1 level shows no significant finding. Impression: Developmentally somewhat small spinal canal. Disc bulging at C3-4. Moderate disc bulging at C5-6 and broad-based central disc protrusion at C6-7. Uncovertebral spurring bilaterally at C5-6 and C6-7. Electronically Signed by Matteo Linares MD 02/11/2019 12:56 P
== END ==
LOC: M PLARAD 10:54
PROVIDERS: ATTEND Nurse Practitioner Family
DX: M50.21 Other cervical disc displacement, high cervical region (principal); M50.222 Other cervical disc displacement at C5-C6 level; M50.223 Other cervical disc displacement at C6-C7 level; M25.78 Osteophyte, vertebrae

== ENCOUNTER → 2019-02-25 | Outpatient (CLI) | payer MEDICARE ==
--- NOTE | 2019-03-12 03:01 | ECWPNPC ---
PATIENT NAME: KENTON HUTCHINS : 1960 GENDER: FEMALE VISIT DATE: 02/25/2019 DISCHARGE DATE: 02/25/1958 VISIT LOCKED DATE TIME: PHYSICIAN: MARCO PEACE RESOURCE: MARCO PEACE REASON FOR APPOINTMENT 1. MED MGMT/REVIEW MRI HISTORY OF PRESENT ILLNESS HISTORY OF PRESENT ILLNESS: HERE FOR F/U OF ACUTE ON CHRONIC NECK PAIN WITH RADIATION INTO LEFT ARM.MRI OF CERVICAL SPINE I ORDERED AT LAST VISIT IS REVIEWED.DESCRIBES PAIN CONTINUOUS,SHARP AND ACHING. PAIN THE PATIENT DESCRIBES THE PAIN... FALL RISK SCREENING: SCREENING :NO FALLS REPORTED IN THE LAST YEAR CURRENT MEDICATIONS TAKING ASPIR-81 81 MG TABLET DELAYED RELEASE 1 TABLET P.O. ONCE A DAY TAKING LIPITOR 10 MG TABLET 1 TABLET ORALLY ONCE A DAY TAKING MONTELUKAST SODIUM 10 MG TABLET 1 TABLET IN THE EVENING ORALLY ONCE A DAY TAKING LISINOPRIL 10 MG TABLET 1 TABLET ORALLY ONCE A DAY TAKING TYLENOL 8 HOUR 650 MG TABLET EXTENDED RELEASE 2 TABLETS NEEDED ORALLY EVERY 8 HRS TAKING MAY USE CBD OIL ONCE DAILY TAKING CYMBALTA 60 MG CAPSULE DELAYED RELEASE PARTICLES 1 CAPSULE ORALLY ONCE A DAY TAKING TRAMADOL HCL 50 MG TABLET 1 -2 TABLET NEEDED ORALLY EVERY 6 HRS MDD=6 CODE D CHRONIC PAIN TAKING VALIUM 5 MG TABLET 1 TAB DIRECTED ORALLY 1 TAB 1/2 HR PRE PROCEDURE, NOTES: FOR PROCEDURES ONLY TAKING LYRICA 200 MG CAPSULE 2 CAPSULES ORALLY BID MDD2 NOT-TAKING METOPROLOL SUCCINATE ER 50 MG TABLET EXTENDED RELEASE 24 HOUR 1 TABLET ORALLY ONCE A DAY NOT-TAKING LYRICA 100 MG CAPSULE 1 CAPSULE ORALLY THREE TIMES A DAY NOT-TAKING VENTOLIN HFA 108 (90 BASE) MCG/ACT AEROSOL SOLUTION 2 PUFFS NEEDED INHALATION EVERY 4 HRS, NOTES: WEEKS AGO NOT-TAKING LIDOCAINE 5 % OINTMENT 1 APPLICATION TO AFFECTED AREA NEEDED EXTERNALLY THREE TIMES A DAY NOT-TAKING FUROSEMIDE 20 MG TABLET 1 TABLET ORALLY ONCE A DAY NOT-TAKING SOMA 350 MG TABLET 1 TABLET NEEDED ORALLY BEFORE BEDTIME MEDICATION LIST REVIEWED AND RECONCILED WITH THE PATIENT PAST MEDICAL HISTORY DEPRESSION BACK PAIN, INJURY HTN HYPERLIPIDEMIA OBSTRUCTIVE SLEEP APNEA HX OF ENDOMETRIOSIS AND ABNORMAL PAP SMEARS SEASONAL ALLERGIES STAGE 3 KIDNEY DISEASE ALLERGIES ZONISAMIDE: ELEVATED KIDNEY LEVELS SURGICAL HISTORY PARTIAL HYSTERECTOMY 1994 BREAST BIOPSY BENIGN TUBAL LIGATION 1983 RIGHT KNEE SURGERY FAMILY HISTORY FATHER: 53 YRS, DIAGNOSED WITH HYPERTENSION, UNSPECIFIED HEART DISEASE MOTHER: 76 YRS, DIABETES, HYPERTENSION 5 BROTHER(S) , 3 SISTER(S) - HEALTHY. 1 SISTER FROM MVA\\NDAUGHTER - RHEUMATOID ARTHRITIS. SOCIAL HISTORY GENERAL: TOBACCO USE ARE YOU A:FORMER SMOKER HOW LONG HAS IT BEEN SINCE YOU LAST SMOKED?1-5 YEARS OTHERS AT HOME: OTHER NON-RELATIVE. HOUSING: OWNS MOBILE HOME. DIET: REGULAR. LANGUAGE LANGUAGES SPOKEN:ALGERIAN RECREATIONAL DRUG USE DRUG USE?NO LEARNING BARRIERS / SPECIAL NEEDS CHANGE FROM LAST VISIT?NO BARRIERS TO LEARNING?NO HEARING IMPAIRED?NO VISION IMPAIRED?YES COGNITIVELY IMPAIRED?NO :CORRECTIVE LENSES READINESS TO LEARN?YES LEARNING PREFERENCES?NO LEARNING CAPABILITIES PRESENT?YES EMOTIONAL BARRIERS?NO SPECIAL DEVICES?NO BLENDER SNUFF NEEDED?NO PAIN CLINIC PFS, CLERGY, PUBLIC HEALTH REFERRALS PFS REFERRAL NEEDED?NO CLERGY REFERRAL NEEDED?NO PUBLIC HEALTH REFERRAL NEEDED?NO WAS THE PROVIDER NOTIFIED OF ANY PERTINENT INFO?NO HAS THE PATIENT BEEN EDUCATED REGARDING HIS/HER PLAN OF CARE?YES HAS THE PATIENT BEEN EDUCATED REGARDING PAIN, THE RISK FOR PAIN, THE IMPORTANCE OF EFFECTIVE PAIN MANAGEMENT, AND THE PAIN ASSESSMENT PROCESS?YES LATEX QUESTIONNAIRE LATEX ALLERGY : HAVE YOU EVER DEVELOPED ANY TYPE OF REACTION AFTER HANDLING LATEX PRODUCTS SUCH RUBBER GLOVES, CONDOMS, DIAPHRAGMS, BALLOONS, SOCKS, OR UNDERWEAR?NO LATEX ALLERGY : HAVE YOU EVER DEVELOPED ANY TYPE OF REACTION DURING OR AFTER DENTAL APPOINTMENT, VAGINAL/RECTAL EXAMINATION, SURGICAL PROCEDURE, OR ANY OTHER EXPOSURE?NO LATEX RISK : HAVE YOU EVER HAD ANY DIFFICULTY BREATHING OR HIVES AFTER EATING OR HANDLING ANY FRUITS, OR VEGETABLES; SUCH KIWI, BANANAS, STONE FRUITS, OR CHESTNUTSNO LATEX RISK : DO YOU HAVE A PREVIOUS PERSONAL HISTORY OF MORE THAN NINE SURGERIES, SPINA BIFIDA, OR REPEATED CATHERIZATIONS? NO LATEX RISK : ARE YOU FREQUENTLY EXPOSED TO LATEX PRODUCTS IN YOUR OCCUPATION?NO DATE ASKED : 08/31/2018 ADVANCE DIRECTIVE ADVANCE DIRECTIVE DISCUSSED WITH PATIENT:YES HCP MELODY JEAN BAPTISTE [id number] [facility] STATUS: SINGLE, .. ALCOHOL SCREENING DID YOU HAVE A DRINK CONTAINING ALCOHOL IN THE PAST YEAR?YES HOW OFTEN DID YOU HAVE SIX OR MORE DRINKS ON ONE OCCASION IN THE PAST YEAR?NEVER (0 POINTS) HOW MANY DRINKS DID YOU HAVE ON A TYPICAL DAY WHEN YOU WERE DRINKING IN THE PAST YEAR?1 OR 2 (0 POINTS) HOW OFTEN DID YOU HAVE A DRINK CONTAINING ALCOHOL IN THE PAST YEAR?MONTHLY OR LESS (1 POINT) POINTS1 INTERPRETATIONNEGATIVE OCCUPATION: RETIRED. REVIEWED WITH PATIENT 02/02/18 1124 JSREVIEWED WITH PT 03/09/18 1449 BVREVIEWED WITH PATIENT 04/15/18 1437 JSREVIEWED WITH PT 08/04/18 1256 BVREVIEWED WITH PT 08/31/18 0927 BVREVIEWED WITH PATIENT 01/14/19 1052 LASREVIEWED WITH PT 11/09/18 NLJREVIEWED WITH PATIENT 02/25/19 0908 JS. HOSPITALIZATION/MAJOR DIAGNOSTIC PROCEDURE [facility]- BILATERAL KNEE PAIN, NO NEW MEDICATIONS- HAS APPT WITH [facility] SCHEDULED FOR 11/15/1811/2018 REVIEW OF SYSTEMS REVIEWED BY: PROVIDER: MARCO FULLER . CONSTITUTIONAL: ANY CHANGE IN YOUR MEDICAL CONDITION? NO . CHILLS NO . FEVER NO . INFECTION: DO YOU HAVE NEW INFECTIONS? NO . DO YOU HAVE HISTORY OF MRSA? NO . MUSCULOSKELETAL: ANY NEW PATTERNS OF PAIN OR NUMBNESS? YES, STATES TINGLING/NUMBNESS TO LEFT ARM FROM SHOULDER TO FINGERS THAT STARTED A FEW WEEKS AGO . GASTROENTEROLOGY: ANY NEW CHANGE IN BOWEL CONTROL? NO . GENITOURINARY: ANY NEW CHANGE IN BLADDER CONTROL? YES, STATES INCONTINENCE GETTING WORSE, NEEDS TO WEAR A PAD ALL DAY . IS THERE A CHANCE YOU COULD BE ? NO . HEMATOLOGY/LYMPH: DO YOU TAKE ANY BLOOD THINNERS? (FOR EXAMPLE- COUMADIN, PLAVIX, AGGRENOX, PLATEL, PRADAXA, OR XARELTO) NO . WHEN WAS YOUR LAST DOSE? DATE: TIME: . NEUROLOGY: HAVE YOU FALLEN IN THE PAST 12 MONTHS? YES, STATES PRIOR TO LAST VISIT, DISCUSSED AT PREVIOUS VISIT . ANY NEW EXTREMITY NUMBNESS OR WEAKNESS? YES, LEFT ARM AND HAND TINGLY AND NUMB . CARDIOLOGY: DO YOU HAVE A PACEMAKER OR DEFIBRILLATOR? NO . RESPIRATORY: HAVE YOU BEEN SICK IN THE PAST WEEK? NO . FEVER NO . FLU LIKE SYMPTOMS? NO . COUGH NO . INTEGUMENTARY: DO YOU HAVE ANY RASHES OR OPEN SORES? NO . ALLERGIC/IMMUNO: ARE YOU ALLERGIC TO IV DYE? NO . ANY NEW ALLERGIES? NO . PSYCHIATRIC: DO YOU HAVE THOUGHTS OF HURTING YOURSELF OR SOMEONE ELSE? NO . ARE YOU ABUSED, NEGLECTED, OR IN AN UNSAFE ENVIRONMENT? NO . ENDOCRINOLOGY: ARE YOU DIABETIC? NO . OTHER: DO YOU NEED ANY PRESCRIPTIONS? YES . IF YES, PLEASE LIST: ____TRAMADOL . ANY NEW PROBLEMS WITH YOUR MEDICATIONS? NO . WHEN DID YOU LAST EAT? ____ . WHEN DID YOU LAST DRINK? ____ . WHAT DID YOU LAST DRINK? ____ . NAME OF PERSON DRIVING YOU HOME? ____ . DO YOU HAVE ANY OTHER QUESTIONS OR CONCERNS FLU VACCINE 02/22/19 . VITAL SIGNS WT 255.8 LBS, HT 63 IN, BMI 45.31 INDEX, BP 138/70 MM HG, HR 77 /MIN, RR 18 /MIN, TEMP 96.6 F, OXYGEN SAT % 99%, SAFE IN ENV? (Y/N) YES, NA INITIALS SC 09:06, REVIEWED BY: KAREN. EXAMINATION GENERAL EXAMINATION: LUNGS: LUNG SOUNDS ARE CLEAR . HEART: HEART RATE REGULAR . MUSCULOSKELETAL:*, MUSCLE STRENGTH TESTING 5/5 BILATERAL UPPER EXTREMITIES. . CERVICAL+ FOR PAIN WITH PALPATION OF CERVICAL SPINE. + FOR PAIN WITH PALPATION OF CERVICAL PARASPINALS. . DIAGNOSTIC TESTS REVIEWED CERVICAL MRI-02/11/19. ASSESSMENTS SPONDYLOSIS, CERVICAL - M47.812 (PRIMARY) CERVICAL RADICULOPATHY - M54.12 TREATMENT SPONDYLOSIS, CERVICAL CONTINUE LYRICA CAPSULE, 100 MG, 2 CAP, ORALLY, BID MDD4, 30 DAYS, 120, REFILLS 3 NOTES: C6/7 SONIA. PREVENTIVE MEDICINE PAIN CLINIC TEACHING: PROCEDURE TEACHING PRINTED AND REVIEWED INFORMATION ON CERVICAL EPIDURAL STEROID INJECTION WITH PATIENT. ALSO REVIEWED PRE-PROCEDURE INSTRUCTIONS. PATIENT VERBALIZED AN UNDERSTANDING. JOVANNI SHARP 02/25/2019 9:59:15 AM > . PROCEDURE CODES FA211 ESTABILISHED PATIENT [facility] CHARGE DISPOSITION & COMMUNICATION FOLLOW UP POST (REASON: C6/7 SONIA) ELECTRONICALLY SIGNED BY ALINA SPIVEY ON 03/11/2019 AT 12:04 PM EST DISCLAIMER : THIS IS A VISIT SUMMARY EXTRACTED FROM THE [employer] CHART. IT IS NOT A COPY OF THE [employer] PROGRESS NOTE. ALBAN
== END ==
LOC: M PAIN 09:15
PROVIDERS: ATTEND Nurse Practitioner Family
DX: M47.812 Spondylosis without myelopathy or radiculopathy, cervical region (principal); M54.12 Radiculopathy, cervical region; G89.29 Other chronic pain; Z86.59 Personal history of other mental and behavioral disorders; I10 Essential (primary) hypertension; E78.5 Hyperlipidemia, unspecified; G47.33 Obstructive sleep apnea (adult) (pediatric); Z87.891 Personal history of nicotine dependence; Z88.8 Allergy status to other drugs, medicaments and biological substances; E66.01 Morbid (severe) obesity due to excess calories; Z68.42 Body mass index [BMI] 45.0-49.9, adult; Z79.82 Long term (current) use of aspirin; Z79.899 Other long term (current) drug therapy

== ENCOUNTER → 2019-04-18 | Outpatient (CLI) | payer MEDICARE ==
[~2019-04-18] MED LIST changes: +ISOVUE-M 300 61% 15ML VIAL (Q9967) As Ordered ONE; +LIDOCAINE 1% SDV INJ 30 ML VIAL As Ordered ONE; +diazePAM 5 MG TAB As Ordered ONE; +methylPREDNISolone SUSP 40 MG/ML (DEPO-medrol) VIAL (J1030) As Ordered ONE; +oxyCODONE 5MG TAB As Ordered ONE
--- NOTE | 2019-04-18 11:46 | REP ---
Partial thoracic spine series: Two views. History: Cervical epidural injection for pain. 21 seconds of fluoroscopy time is reported. Findings: A sequence of two last image hold fluoroscopically obtained spot radiographs of the cervical thoracic junction document needle position and contrast injection associated with injection procedure. Electronically Signed by Matteo Linares MD 04/18/2019 11:38 A
--- NOTE | 2019-04-20 02:32 | ECWPNPC ---
PATIENT NAME: KENTON HUTCHINS : 1960 GENDER: FEMALE VISIT DATE: 04/18/2019 DISCHARGE DATE: 04/18/19 113 VISIT LOCKED DATE TIME: PHYSICIAN: SUSU REED MD RESOURCE: SUSU REED MD REASON FOR APPOINTMENT 1. C7-T1 SONIA CURRENT MEDICATIONS TAKING ASPIR-81 81 MG TABLET DELAYED RELEASE 1 TABLET P.O. ONCE A DAY, NOTES: 04/18/19729 TAKING LIPITOR 10 MG TABLET 1 TABLET ORALLY ONCE A DAY, NOTES: 04/17/192099 TAKING MONTELUKAST SODIUM 10 MG TABLET 1 TABLET IN THE EVENING ORALLY ONCE A DAY, NOTES: 04/17/192099 TAKING LISINOPRIL 10 MG TABLET 1 TABLET ORALLY ONCE A DAY, NOTES: 04/17/192099 TAKING TYLENOL 8 HOUR 650 MG TABLET EXTENDED RELEASE 2 TABLETS NEEDED ORALLY EVERY 8 HRS, NOTES: NONE IN A COUPLE DAYS TAKING MAY USE CBD OIL ONCE DAILY, NOTES: 04/17/19729 TAKING CYMBALTA 60 MG CAPSULE DELAYED RELEASE PARTICLES 1 CAPSULE ORALLY ONCE A DAY, NOTES: 04/18/19729 TAKING VALIUM 5 MG TABLET 1 TAB DIRECTED ORALLY 1 TAB 1/2 HR PRE PROCEDURE, NOTES: NONE TODAY TAKING LYRICA 200 MG CAPSULE 2 CAPSULES ORALLY BID MDD2, NOTES: 04/18/19729 TAKING TRAMADOL HCL 50 MG TABLET 1 -2 TABLET NEEDED ORALLY EVERY 6 HRS MDD=6 CODE D CHRONIC PAIN, NOTES: 04/17/192099 NOT-TAKING METOPROLOL SUCCINATE ER 50 MG TABLET EXTENDED RELEASE 24 HOUR 1 TABLET ORALLY ONCE A DAY NOT-TAKING VENTOLIN HFA 108 (90 BASE) MCG/ACT AEROSOL SOLUTION 2 PUFFS NEEDED INHALATION EVERY 4 HRS, NOTES: WEEKS AGO NOT-TAKING LIDOCAINE 5 % OINTMENT 1 APPLICATION TO AFFECTED AREA NEEDED EXTERNALLY THREE TIMES A DAY NOT-TAKING FUROSEMIDE 20 MG TABLET 1 TABLET ORALLY ONCE A DAY NOT-TAKING SOMA 350 MG TABLET 1 TABLET NEEDED ORALLY BEFORE BEDTIME MEDICATION LIST REVIEWED AND RECONCILED WITH THE PATIENT PAST MEDICAL HISTORY DEPRESSION BACK PAIN, INJURY HTN HYPERLIPIDEMIA OBSTRUCTIVE SLEEP APNEA HX OF ENDOMETRIOSIS AND ABNORMAL PAP SMEARS SEASONAL ALLERGIES STAGE 3 KIDNEY DISEASE FIBROMYALGIA ALLERGIES ZONISAMIDE: ELEVATED KIDNEY LEVELS SURGICAL HISTORY PARTIAL HYSTERECTOMY 1994 BREAST BIOPSY BENIGN TUBAL LIGATION 1984 RIGHT KNEE SURGERY FAMILY HISTORY FATHER: 53 YRS, DIAGNOSED WITH UNSPECIFIED HEART DISEASE, HYPERTENSION MOTHER: 76 YRS, DIABETES, HYPERTENSION 5 BROTHER(S) , 3 SISTER(S) - HEALTHY. 1 SISTER FROM MVA\\NDAUGHTER - RHEUMATOID ARTHRITIS. SOCIAL HISTORY GENERAL: TOBACCO USE ARE YOU A:FORMER SMOKER HOW LONG HAS IT BEEN SINCE YOU LAST SMOKED?1-5 YEARS OTHERS AT HOME: OTHER NON-RELATIVE. HOUSING: OWNS MOBILE HOME. DIET: REGULAR. LANGUAGE LANGUAGES SPOKEN:UPPER SORBIAN RECREATIONAL DRUG USE DRUG USE?NO LEARNING BARRIERS / SPECIAL NEEDS CHANGE FROM LAST VISIT?NO BARRIERS TO LEARNING?NO HEARING IMPAIRED?NO VISION IMPAIRED?YES :CORRECTIVE LENSES COGNITIVELY IMPAIRED?NO READINESS TO LEARN?YES LEARNING PREFERENCES?NO LEARNING CAPABILITIES PRESENT?YES EMOTIONAL BARRIERS?NO SPECIAL DEVICES?NO CARTOGRAPHY TECHNICIAN NEEDED?NO PAIN CLINIC PFS, CLERGY, PUBLIC HEALTH REFERRALS PFS REFERRAL NEEDED?NO CLERGY REFERRAL NEEDED?NO PUBLIC HEALTH REFERRAL NEEDED?NO WAS THE PROVIDER NOTIFIED OF ANY PERTINENT INFO?NO HAS THE PATIENT BEEN EDUCATED REGARDING HIS/HER PLAN OF CARE?YES HAS THE PATIENT BEEN EDUCATED REGARDING PAIN, THE RISK FOR PAIN, THE IMPORTANCE OF EFFECTIVE PAIN MANAGEMENT, AND THE PAIN ASSESSMENT PROCESS?YES LATEX QUESTIONNAIRE LATEX ALLERGY : HAVE YOU EVER DEVELOPED ANY TYPE OF REACTION AFTER HANDLING LATEX PRODUCTS SUCH RUBBER GLOVES, CONDOMS, DIAPHRAGMS, BALLOONS, SOCKS, OR UNDERWEAR?NO LATEX ALLERGY : HAVE YOU EVER DEVELOPED ANY TYPE OF REACTION DURING OR AFTER DENTAL APPOINTMENT, VAGINAL/RECTAL EXAMINATION, SURGICAL PROCEDURE, OR ANY OTHER EXPOSURE?NO LATEX RISK : HAVE YOU EVER HAD ANY DIFFICULTY BREATHING OR HIVES AFTER EATING OR HANDLING ANY FRUITS, OR VEGETABLES; SUCH KIWI, BANANAS, STONE FRUITS, OR CHESTNUTSNO LATEX RISK : DO YOU HAVE A PREVIOUS PERSONAL HISTORY OF MORE THAN NINE SURGERIES, SPINA BIFIDA, OR REPEATED CATHERIZATIONS? NO LATEX RISK : ARE YOU FREQUENTLY EXPOSED TO LATEX PRODUCTS IN YOUR OCCUPATION?NO DATE ASKED : 04/08/2019 ADVANCE DIRECTIVE ADVANCE DIRECTIVE DISCUSSED WITH PATIENT:YES HCP MELODY JEAN BAPTISTE [phone] JUDAISM [id number] [facility] MAR[facility] STATUS: SINGLE, .. ALCOHOL SCREENING DID YOU HAVE A DRINK CONTAINING ALCOHOL IN THE PAST YEAR?YES HOW OFTEN DID YOU HAVE SIX OR MORE DRINKS ON ONE OCCASION IN THE PAST YEAR?NEVER (0 POINTS) HOW MANY DRINKS DID YOU HAVE ON A TYPICAL DAY WHEN YOU WERE DRINKING IN THE PAST YEAR?1 OR 2 (0 POINTS) HOW OFTEN DID YOU HAVE A DRINK CONTAINING ALCOHOL IN THE PAST YEAR?MONTHLY OR LESS (1 POINT) POINTS1 INTERPRETATIONNEGATIVE OCCUPATION: RETIRED. REVIEWED WITH PATIENT 02/02/18 1124 JSREVIEWED WITH PT 03/09/18 1449 BVREVIEWED WITH PATIENT 04/15/18 1437 JSREVIEWED WITH PT 08/04/18 1256 BVREVIEWED WITH PT 08/31/18 0927 BVPRE PROCEDURE SCREENING DONE 04/08/19 EMREVIEWED WITH PATIENT 01/14/19 1052 LASREVIEWED WITH PT 11/09/18 NLJREVIEWED WITH PATIENT 02/25/19 0908 JS. HOSPITALIZATION/MAJOR DIAGNOSTIC PROCEDURE [facility]- BILATERAL KNEE PAIN, NO NEW MEDICATIONS- HAS APPT WITH [facility] SCHEDULED FOR 11/15/1811/2018 VITAL SIGNS WT 258.4 LBS, HT 63 IN, BMI 45.77 INDEX, BP 152/68 MM HG, HR 86 /MIN, RR 18 /MIN, TEMP 96.9 F, OXYGEN SAT % 97%, SAFE IN ENV? (Y/N) YES, NA INITIALS SC 09:47, REVIEWED BY: KATHARINE. ASSESSMENTS CERVICAL DISC DISORDER WITH RADICULOPATHY, UNSPECIFIED CERVICAL REGION - M50.10 (PRIMARY) PROCEDURES PN CERVICAL EPIDURAL PRE PROCEDURE DIAGNOSIS CERVICAL DISC DISORDER WITH RADICULOPATHY POST PROCEDURE DIAGNOSIS CERVICAL DISC DISORDER WITH RADICULOPATHY PROCEDURE CERVICAL EPIDURAL STEROID INJECTION UNDER FLUOROSCOPIC GUIDANCE SURGEON DR. SUSU REED LOADER HELPER NONE ANESTHESIA LOCAL PRE PROCEDURE NOTE THE PATIENT HAS A HISTORY OF CHRONIC CERVICAL PAIN. I EVALUATED THE PATIENT AND REVIEWED THE CHART. I WENT OVER THE RISKS, ALTERNATIVES, AND BENEFITS ASSOCIATED WITH THIS PROCEDURE. THE PATIENT WOULD LIKE TO PROCEED AND GIVES CONSENT TO PERFORM THE PROCEDURE. THE PATIENT DENIES UNEXPLAINABLE WEIGHT LOSS, FEVER, CHILLS, OR NEW CHANGES IN URINARY OR BOWEL CONTROL DESCRIPTION OF PROCEDURE THE PATIENT WAS BROUGHT TO THE PROCEDURE ROOM AND PLACED IN THE PRONE POSITION. THE CERVICOTHORACIC AREA WAS CLEANED WITH BETADINE SOLUTION AND DRAPED ASEPTICALLY. THE PROCEDURE WAS DONE UNDER STERILE CONDITIONS. I CHECKED LATERALITY AND THE LEVEL WHERE THE PROCEDURE WAS GOING TO BE PERFORMED WITH THE PATIENT AND THE SUPPORTING STAFF AT THE MOMENT OF THE TIME OUT IN THE PROCEDURE ROOM. UNDER FLUOROSCOPIC GUIDANCE, THE TARGET WAS SELECTED AT THE INTERLAMINAR LEVEL OF C7-T1. LIDOCAINE WAS USED TO NUMB THE SKIN AND THE SUBCUTANEOUS TISSUE BELOW IT. EPIDURAL TUOHY NEEDLE 17-GAUGE WAS ADVANCED UNDER FLUOROSCOPIC GUIDANCE AND FOLLOWING PATIENT FEEDBACK UNTIL THE EPIDURAL SPACE WAS REACHED 6 CM DEEP INTO THE SKIN BY THE LOSS OF RESISTANCE TECHNIQUE. ISOVUE M DYE 30%, 0.25 ML, WAS INJECTED SHOWING ADEQUATE SPREAD OF THE DYE. THEN, A SOLUTION OF 3 ML OF NORMAL SALINE WITH DEPO-MEDROL 60 MG WAS INJECTED SLOWLY FOLLOWING PATIENT FEEDBACK. THERE WAS NO EVIDENCE OF BLOOD, PARESTHESIA OR CEREBROSPINAL FLUID DURING THE PROCEDURE. THE PATIENT WAS SENT TO THE RECOVERY ROOM. THE PATIENT WAS MOVING THE EXTREMITIES AND DOING WELL. THERE WAS NO COMPLICATION DURING THE PROCEDURE. FLUOROSCOPY TIME WAS 21 SECONDS POST PROCEDURE NOTE I AM LOOKING FOR LONG LASTING PAIN RELIEF WITH THIS INTERVENTION. THE PATIENT WILL BE SEEN IN A FOLLOW UP IN THE NEXT FEW WEEKS. INSTRUCTIONS WERE GIVEN, QUESTIONS WERE ANSWERED, AND THE PATIENT EXPRESSED UNDERSTANDING AND AGREES WITH THE PLAN. I, LIZ BANEGAS, DOCUMENTED THE ABOVE INFORMATION ACTING A SCRIBE FOR DR. REED. I HAVE REVIEWED THE ABOVE DOCUMENT, WRITTEN BY LIZ SYKESIBJt AND I VERIFY THAT IT IS ACCURATE. DIAGNOSTIC IMAGING [facility] FLUORO GUIDE SPINE INJECTION (PAIN)[id number] PROCEDURE CODES 37273 CERVICAL/THORACIC W/ IMAGING 6045F RADXPS IN END [id number] PXD DISPOSITION & COMMUNICATION FOLLOW UP 3 WEEKS ELECTRONICALLY SIGNED BY SUSU REED MD, MD ON 04/19/2019 AT 05:21 PM EST DISCLAIMER : THIS IS A VISIT SUMMARY EXTRACTED FROM THE [employer] CHART. IT IS NOT A COPY OF THE [employer] PROGRESS NOTE. MTDD
== END ==
LOC: M PAIN 09:30
PROVIDERS: ATTEND Anesthesiology
DX: M50.10 Cervical disc disorder with radiculopathy, unspecified cervical region (principal); Z86.59 Personal history of other mental and behavioral disorders; I10 Essential (primary) hypertension; E78.5 Hyperlipidemia, unspecified; G47.33 Obstructive sleep apnea (adult) (pediatric); M79.7 Fibromyalgia; Z87.891 Personal history of nicotine dependence; Z88.8 Allergy status to other drugs, medicaments and biological substances; E66.01 Morbid (severe) obesity due to excess calories; Z68.42 Body mass index [BMI] 45.0-49.9, adult; Z79.82 Long term (current) use of aspirin; Z79.891 Long term (current) use of opiate analgesic; Z79.899 Other long term (current) drug therapy
CPT/HCPCS: 62321; J1030; Q9967

== ENCOUNTER → 2019-05-19 | Outpatient (CLI) | payer MEDICARE ==
[~2019-05-19] MED LIST changes: -ISOVUE-M 300 61% 15ML VIAL (Q9967) As Ordered ONE; -LIDOCAINE 1% SDV INJ 30 ML VIAL As Ordered ONE; -diazePAM 5 MG TAB As Ordered ONE; -methylPREDNISolone SUSP 40 MG/ML (DEPO-medrol) VIAL (J1030) As Ordered ONE; -oxyCODONE 5MG TAB As Ordered ONE
[2019-05-19 12:31] LABS: BASO # 0.1 10^3/uL (0.0-0.2); BASO % 1.1 % (0.0-1.0); EOS # 0.2 10^3/uL (0.0-0.5); EOS % 2.9 % (0.0-3.0); HEMATOCRIT 39.1 % (36.0-47.0); HEMOGLOBIN 12.3 g/dl (12.0-15.5); LYMPH # 1.7 10^3/uL (1.5-5.0); LYMPH % 27.1 % (24.0-44.0); MEAN CORPUSCULAR HEMOGLOBIN 28.5 pg (27.0-33.0); MEAN CORPUSCULAR HGB CONC 31.5 g/dl (32.0-36.5); MEAN CORPUSCULAR VOLUME 90.7 fl (80.0-96.0); MONO # 0.7 10^3/uL (0.0-0.8); NEUTROPHILS # 3.5 10^3/uL (1.5-8.5); NEUTROPHILS % 56.1 % (36.0-66.0); PLATELET COUNT, AUTOMATED 231 10^3/uL (150-450); RED BLOOD COUNT 4.31 10^6/uL (4.00-5.40); WHITE BLOOD COUNT 6.2 10^3/uL (4.0-10.0)
[2019-05-19 12:59] LABS: ALBUMIN 3.9 GM/DL (3.2-5.2); BILIRUBIN,TOTAL 0.7 MG/DL (0.2-1.0); CALCIUM LEVEL 9.4 MG/DL (8.5-10.1); CHOLESTEROL RISK RATIO 2.857 (<5); CREATININE FOR GFR 1.11 MG/DL (0.55-1.30); FREE T4 0.96 NG/DL (0.76-1.46); GLOMERULAR FILTRATION RATE 53.6 (>51); POTASSIUM SERUM 4.2 MEQ/L (3.5-5.1); THYROID STIMULATING HORMONE 1.79 uIU/ML (0.358-3.740); TOTAL PROTEIN 7.1 GM/DL (6.4-8.2)
[2019-05-19 13:03] LABS: TOTAL 25(OH) VITAMIN D 22.3 NG/ML (30.0-100.0)
[2019-05-19 13:09] LABS: HEMOGLOBIN A1c 5.5 %
== END ==
LOC: M LAB 11:55
PROVIDERS: ATTEND Physician Assistant Medical
DX: R53.83 Other fatigue (principal); I10 Essential (primary) hypertension; E78.2 Mixed hyperlipidemia

== ENCOUNTER → 2019-05-19 | Outpatient (CLI) | payer MEDICARE ==
--- NOTE | 2019-06-07 05:31 | ECWPNPC ---
PATIENT NAME: KENTON HUTCHINS : 1960 GENDER: FEMALE VISIT DATE: 05/19/2019 DISCHARGE DATE: 05/19/19 1147 VISIT LOCKED DATE TIME: PHYSICIAN: MARCO PEACE RESOURCE: MARCO PEACE REASON FOR APPOINTMENT 1. POST SONIA HISTORY OF PRESENT ILLNESS HISTORY OF PRESENT ILLNESS: HERE FOR POST PROCEDURE FOLLOW-UP. CERVICAL EPIDURAL STEROID INJECTION ON 04/18/2019.REPORTING GREATER THAN 50% REDUCTION IN PAIN BOTH IN HER NECK AND LEFT ARM SINCE PROCEDURE. RATING PAIN LEVEL 4-5/10 VAS. FINDS CURRENT CHRONIC PAIN MEDICATION HELPFUL AT REDUCING PAIN AND KEEPING HER FUNCTIONAL. DENIES SIDE EFFECTS OF MEDICATION. PAIN THE PATIENT DESCRIBES THE PAIN... FALL RISK SCREENING: SCREENING :NO FALLS REPORTED IN THE LAST YEAR CURRENT MEDICATIONS TAKING ASPIR-81 81 MG TABLET DELAYED RELEASE 1 TABLET P.O. ONCE A DAY TAKING LIPITOR 10 MG TABLET 1 TABLET ORALLY ONCE A DAY TAKING MONTELUKAST SODIUM 10 MG TABLET 1 TABLET IN THE EVENING ORALLY ONCE A DAY TAKING LISINOPRIL 10 MG TABLET 1 TABLET ORALLY ONCE A DAY TAKING TYLENOL 8 HOUR 650 MG TABLET EXTENDED RELEASE 2 TABLETS NEEDED ORALLY EVERY 8 HRS TAKING MAY USE CBD OIL ONCE DAILY TAKING CYMBALTA 60 MG CAPSULE DELAYED RELEASE PARTICLES 1 CAPSULE ORALLY ONCE A DAY TAKING VALIUM 5 MG TABLET 1 TAB DIRECTED ORALLY 1 TAB 1/2 HR PRE PROCEDURE, NOTES: PRE PROCEDURE ONLY TAKING LYRICA 200 MG CAPSULE 1 CAPSULE ORALLY BID MDD2 TAKING TRAMADOL HCL 50 MG TABLET 1 -2 TABLET NEEDED ORALLY EVERY 6 HRS MDD=6 CODE D CHRONIC PAIN NOT-TAKING METOPROLOL SUCCINATE ER 50 MG TABLET EXTENDED RELEASE 24 HOUR 1 TABLET ORALLY ONCE A DAY NOT-TAKING VENTOLIN HFA 108 (90 BASE) MCG/ACT AEROSOL SOLUTION 2 PUFFS NEEDED INHALATION EVERY 4 HRS, NOTES: WEEKS AGO NOT-TAKING LIDOCAINE 5 % OINTMENT 1 APPLICATION TO AFFECTED AREA NEEDED EXTERNALLY THREE TIMES A DAY NOT-TAKING FUROSEMIDE 20 MG TABLET 1 TABLET ORALLY ONCE A DAY NOT-TAKING SOMA 350 MG TABLET 1 TABLET NEEDED ORALLY BEFORE BEDTIME MEDICATION LIST REVIEWED AND RECONCILED WITH THE PATIENT PAST MEDICAL HISTORY DEPRESSION BACK PAIN, INJURY HTN HYPERLIPIDEMIA OBSTRUCTIVE SLEEP APNEA HX OF ENDOMETRIOSIS AND ABNORMAL PAP SMEARS SEASONAL ALLERGIES STAGE 3 KIDNEY DISEASE FIBROMYALGIA ALLERGIES ZONISAMIDE: ELEVATED KIDNEY LEVELS SURGICAL HISTORY PARTIAL HYSTERECTOMY 1994 BREAST BIOPSY BENIGN TUBAL LIGATION 1984 RIGHT KNEE SURGERY CHRONIC NECK PAIN FAMILY HISTORY FATHER: 53 YRS, DIAGNOSED WITH HYPERTENSION, UNSPECIFIED HEART DISEASE MOTHER: 76 YRS, DIABETES, HYPERTENSION 5 BROTHER(S) , 3 SISTER(S) - HEALTHY. 1 SISTER FROM MVA\\NDAUGHTER - RHEUMATOID ARTHRITIS. SOCIAL HISTORY GENERAL: TOBACCO USE ARE YOU A:FORMER SMOKER HOW LONG HAS IT BEEN SINCE YOU LAST SMOKED?1-5 YEARS OTHERS AT HOME: OTHER NON-RELATIVE. HOUSING: OWNS MOBILE HOME. DIET: REGULAR. LANGUAGE LANGUAGES SPOKEN:DUTCH RECREATIONAL DRUG USE DRUG USE?NO LEARNING BARRIERS / SPECIAL NEEDS CHANGE FROM LAST VISIT?NO BARRIERS TO LEARNING?NO HEARING IMPAIRED?NO VISION IMPAIRED?YES COGNITIVELY IMPAIRED?NO :CORRECTIVE LENSES READINESS TO LEARN?YES LEARNING PREFERENCES?NO LEARNING CAPABILITIES PRESENT?YES EMOTIONAL BARRIERS?NO SPECIAL DEVICES?NO SQL REPORT ANALYST NEEDED?NO PAIN CLINIC PFS, CLERGY, PUBLIC HEALTH REFERRALS PFS REFERRAL NEEDED?NO CLERGY REFERRAL NEEDED?NO PUBLIC HEALTH REFERRAL NEEDED?NO WAS THE PROVIDER NOTIFIED OF ANY PERTINENT INFO?NO HAS THE PATIENT BEEN EDUCATED REGARDING HIS/HER PLAN OF CARE?YES HAS THE PATIENT BEEN EDUCATED REGARDING PAIN, THE RISK FOR PAIN, THE IMPORTANCE OF EFFECTIVE PAIN MANAGEMENT, AND THE PAIN ASSESSMENT PROCESS?YES LATEX QUESTIONNAIRE LATEX ALLERGY : HAVE YOU EVER DEVELOPED ANY TYPE OF REACTION AFTER HANDLING LATEX PRODUCTS SUCH RUBBER GLOVES, CONDOMS, DIAPHRAGMS, BALLOONS, SOCKS, OR UNDERWEAR?NO LATEX ALLERGY : HAVE YOU EVER DEVELOPED ANY TYPE OF REACTION DURING OR AFTER DENTAL APPOINTMENT, VAGINAL/RECTAL EXAMINATION, SURGICAL PROCEDURE, OR ANY OTHER EXPOSURE?NO DATE ASKED : 04/08/2019 LATEX RISK : HAVE YOU EVER HAD ANY DIFFICULTY BREATHING OR HIVES AFTER EATING OR HANDLING ANY FRUITS, OR VEGETABLES; SUCH KIWI, BANANAS, STONE FRUITS, OR CHESTNUTSNO LATEX RISK : DO YOU HAVE A PREVIOUS PERSONAL HISTORY OF MORE THAN NINE SURGERIES, SPINA BIFIDA, OR REPEATED CATHERIZATIONS? NO LATEX RISK : ARE YOU FREQUENTLY EXPOSED TO LATEX PRODUCTS IN YOUR OCCUPATION?NO ADVANCE DIRECTIVE ADVANCE DIRECTIVE DISCUSSED WITH PATIENT:YES HCP MELODY JEAN BAPTISTE [phone] [place]GO[place]UE [id number] RESTORATIONISM MARITAL STATUS: SINGLE, .. ALCOHOL SCREENING DID YOU HAVE A DRINK CONTAINING ALCOHOL IN THE PAST YEAR?YES HOW OFTEN DID YOU HAVE A DRINK CONTAINING ALCOHOL IN THE PAST YEAR?MONTHLY OR LESS (1 POINT) HOW MANY DRINKS DID YOU HAVE ON A TYPICAL DAY WHEN YOU WERE DRINKING IN THE PAST YEAR?1 OR 2 (0 POINTS) HOW OFTEN DID YOU HAVE SIX OR MORE DRINKS ON ONE OCCASION IN THE PAST YEAR?NEVER (0 POINTS) POINTS1 INTERPRETATIONNEGATIVE OCCUPATION: RETIRED. REVIEWED WITH PATIENT 02/02/18 1124 JSREVIEWED WITH PT 03/09/18 1449 BVREVIEWED WITH PATIENT 04/15/18 1437 JSREVIEWED WITH PT 08/04/18 1256 BVREVIEWED WITH PT 08/31/18 0927 BVPRE PROCEDURE SCREENING DONE 04/08/19 EMREVIEWED WITH PATIENT 01/14/19 1052 LASREVIEWED WITH PT 11/09/18 NLJREVIEWED WITH PATIENT 02/25/19 0908 JSREVIEWED WITH PATIENT 05/19/19 1118 BV. HOSPITALIZATION/MAJOR DIAGNOSTIC PROCEDURE [facility]- BILATERAL KNEE PAIN, NO NEW MEDICATIONS- HAS APPT WITH [facility] SCHEDULED FOR 11/15/1811/2018 REVIEW OF SYSTEMS REVIEWED BY: PROVIDER: MARCO FULLER . CONSTITUTIONAL: ANY CHANGE IN YOUR MEDICAL CONDITION? NO . CHILLS NO . FEVER NO . INFECTION: DO YOU HAVE NEW INFECTIONS? NO . DO YOU HAVE HISTORY OF MRSA? NO . MUSCULOSKELETAL: ANY NEW PATTERNS OF PAIN OR NUMBNESS? NO . GASTROENTEROLOGY: ANY NEW CHANGE IN BOWEL CONTROL? NO . GENITOURINARY: ANY NEW CHANGE IN BLADDER CONTROL? NO . IS THERE A CHANCE YOU COULD BE ? NO . HEMATOLOGY/LYMPH: DO YOU TAKE ANY BLOOD THINNERS? (FOR EXAMPLE- COUMADIN, PLAVIX, AGGRENOX, PLATEL, PRADAXA, OR XARELTO) NO . WHEN WAS YOUR LAST DOSE? DATE: TIME: . NEUROLOGY: HAVE YOU FALLEN IN THE PAST 12 MONTHS? NO . ANY NEW EXTREMITY NUMBNESS OR WEAKNESS? NO . CARDIOLOGY: DO YOU HAVE A PACEMAKER OR DEFIBRILLATOR? NO . RESPIRATORY: HAVE YOU BEEN SICK IN THE PAST WEEK? NO . FEVER NO . FLU LIKE SYMPTOMS? NO . COUGH NO . INTEGUMENTARY: DO YOU HAVE ANY RASHES OR OPEN SORES? NO . ALLERGIC/IMMUNO: ARE YOU ALLERGIC TO IV DYE? NO . ANY NEW ALLERGIES? NO . PSYCHIATRIC: DO YOU HAVE THOUGHTS OF HURTING YOURSELF OR SOMEONE ELSE? NO . ARE YOU ABUSED, NEGLECTED, OR IN AN UNSAFE ENVIRONMENT? NO . ENDOCRINOLOGY: ARE YOU DIABETIC? NO . OTHER: DO YOU NEED ANY PRESCRIPTIONS? YES, TRAMADOL, AND LYRICA . IF YES, PLEASE LIST: ____ . ANY NEW PROBLEMS WITH YOUR MEDICATIONS? NO . WHEN DID YOU LAST EAT? ____ . WHEN DID YOU LAST DRINK? ____ . WHAT DID YOU LAST DRINK? ____ . NAME OF PERSON DRIVING YOU HOME? ____ . DO YOU HAVE ANY OTHER QUESTIONS OR CONCERNS NO . VITAL SIGNS WT 255.4 LBS, HT 63 IN, BMI 45.24 INDEX, BP 157/69 MM HG, HR 87 /MIN, RR 18 /MIN, TEMP 97.1 F, OXYGEN SAT % 97%, SAFE IN ENV? (Y/N) YESA.AGUSTÍN FROST 05/19/2019 10:51. EXAMINATION GENERAL EXAMINATION: GENERAL AWAKE,ALERT ,PLEASANT . PSYCH AFFECT NORMAL . LUNGS: LUNG LICEA ARE CLEAR TO AUSCULTATION BILATERALLY. GOOD MOVEMENT OF AIR . HEART: S1, S2 IN A REGULAR RATE AND RHYTHM. NO SIGNIFICANT MURMURS, RUBS OR GALLOPS NOTED . ASSESSMENTS SPONDYLOSIS, CERVICAL - M47.812 (PRIMARY) CERVICAL RADICULOPATHY - M54.12 TREATMENT SPONDYLOSIS, CERVICAL CONTINUE TRAMADOL HCL TABLET, 50 MG, 1 -2 TABLET NEEDED, ORALLY, EVERY 6 HRS MDD=6 CODE D CHRONIC PAIN REFILL LYRICA CAPSULE, 200 MG, 1 CAPSULE, ORALLY, BID MDD2 3MOS SUPPLY CAT D CHRONIC PAIN, 90 DAY(S), 180, REFILLS 0 NOTES: ISTOP REGISTRY REVIEWED AND DEMONSTRATES COMPLLIANCE. (REF # ) BRINGS IN MEDICATIONS WHICH IS APPROPRIATE FOR WHAT WAS DISPENSED. RECENT URINE TOXICOLOGY REVIEWED. NO UNAUTHORIZED MEDICATIONS. NO ILLICIT SUBSTANCES AND PRESCRIBED MEDICATIONS WERE PRESENT. URINE TOX TODAY, RISKS OF NARCOTIC/OPIOD MEDICATIONS INCLUDES BUT IS NOT LIMITED TO RISK OF DEPENDANCE/DEVELOPMENT OF ADDICTION, MOOD DISTURBANCE AND DEPRESSION, OSTEOPOROSIS, HORMONAL AND LABIDAL CHANGES, RESPIRATORY DEPRESSION AND . PATIENT IS ADVISED NOT TO DRIVE OR DRINK ALCOHOL WHILE ON THESE MEDICATIONS. PROCEDURE CODES FA211 ESTABILISHED PATIENT [facility] FACILITY CHARGE DISPOSITION & COMMUNICATION FOLLOW UP 8-10 WEEKS (REASON: MED MANAGEMENT) ELECTRONICALLY SIGNED BY ALINA SPIVEY ON 06/06/2019 AT 04:06 PM EST DISCLAIMER : THIS IS A VISIT SUMMARY EXTRACTED FROM THE [employer] CHART. IT IS NOT A COPY OF THE [employer] PROGRESS NOTE. MTDD
== END ==
LOC: M PAIN 10:45
PROVIDERS: ATTEND Nurse Practitioner Family
DX: M47.812 Spondylosis without myelopathy or radiculopathy, cervical region (principal); M54.12 Radiculopathy, cervical region; Z86.59 Personal history of other mental and behavioral disorders; I10 Essential (primary) hypertension; E78.5 Hyperlipidemia, unspecified; G47.33 Obstructive sleep apnea (adult) (pediatric); M79.7 Fibromyalgia; Z87.891 Personal history of nicotine dependence; Z88.8 Allergy status to other drugs, medicaments and biological substances; E66.01 Morbid (severe) obesity due to excess calories; Z68.42 Body mass index [BMI] 45.0-49.9, adult; Z79.82 Long term (current) use of aspirin; Z79.899 Other long term (current) drug therapy

== ENCOUNTER → 2019-05-31 | Outpatient (CLI) | payer MEDICARE ==
--- NOTE | 2019-05-31 17:44 | REPMRS ---
Patient History The patient states she had a clinical breast exam in 2019. Family history of breast cancer in maternal aunt. Benign lumpectomy of the left breast, 1997. Took estrogen for 2 years. 3D TOMOSYNTHESIS WAS PERFORMED. [facility] for [facility] cancer [facility]%. Digital Woman Screen Mammo: May 31, 2019 - Exam #: [id number] Bilateral CC and MLO view(s) were taken. Technologist: Viktoria Brennan, Technologist Prior study comparison: September 03, 2016, digital woman screen mammo performed at [facility]. April 04, 2015, digital woman screen mammo performed at [facility]. FINDINGS: There are scattered fibroglandular densities. There has been no change in the appearance of the mammogram from the prior studies. There is a mild amount of residual fibroglandular tissue which is fairly symmetric. There is no interval development of dominant mass, architectural distortion, or clustered microcalcification suggestive of malignancy. Assessment: BI-RADS/ACR category 1 mammogram. Negative Mammogram. Recommendation Routine screening mammogram in 1 year (for women over age 40). This mammogram was interpreted with the aid of an FDA-approved computer-aided dectection system. Electronically Signed By: Jimmie Landers MD 05/31/19 3858
== END ==
LOC: M WHC 15:11
PROVIDERS: ATTEND Nurse Practitioner Women's Health
DX: Z12.31 Encounter for screening mammogram for malignant neoplasm of breast (principal); Z86.018 Personal history of other benign neoplasm; Z92.23 Personal history of estrogen therapy

== ENCOUNTER → 2019-05-31 | Outpatient (REF) | payer MEDICARE | LOC: M SFHCWAGY 10:40 | PROVIDERS: ATTEND Nurse Practitioner Women's Health | DX: Z01.419 Encounter for gynecological examination (general) (routine) without abnormal findings (principal) ==

== ENCOUNTER → 2019-07-18 | Outpatient (CLI) | payer MEDICARE ==
--- NOTE | 2019-08-04 04:25 | ECWPNPC ---
PATIENT NAME: KENTON HUTCHINS : 1960 GENDER: FEMALE VISIT DATE: 07/18/2019 DISCHARGE DATE: 07/18/19 1111 VISIT LOCKED DATE TIME: PHYSICIAN: MARCO PEACE RESOURCE: MARCO PEACE REASON FOR APPOINTMENT 1. MED MGMNT HISTORY OF PRESENT ILLNESS HISTORY OF PRESENT ILLNESS: HERE FOR FOLLOW-UP OF PERSISTENT NECK PAIN. REPORTS IN INCREASE IN NECK PAIN, RIGHT SHOULDER AND RIGHT ARM PAIN OVER THE PAST FEW WEEKS. RATING PAIN LEVEL A 5-8/10 VAS. HAS RESPONDED WELL TO CERVICAL EPIDURAL STEROID INJECTIONS IN THE PAST. REVIEWED TREATMENT OPTIONS. PAIN THE PATIENT DESCRIBES THE PAIN... FALL RISK SCREENING: SCREENING :NO FALLS REPORTED IN THE LAST YEAR CURRENT MEDICATIONS TAKING ASPIR-81 81 MG TABLET DELAYED RELEASE 1 TABLET P.O. ONCE A DAY TAKING LIPITOR 10 MG TABLET 1 TABLET ORALLY ONCE A DAY TAKING MONTELUKAST SODIUM 10 MG TABLET 1 TABLET IN THE EVENING ORALLY ONCE A DAY TAKING LISINOPRIL 10 MG TABLET 1 TABLET ORALLY ONCE A DAY TAKING TYLENOL 8 HOUR 650 MG TABLET EXTENDED RELEASE 2 TABLETS NEEDED ORALLY EVERY 8 HRS TAKING MAY USE CBD OIL ONCE DAILY TAKING CYMBALTA 60 MG CAPSULE DELAYED RELEASE PARTICLES 1 CAPSULE ORALLY ONCE A DAY TAKING VALIUM 5 MG TABLET 1 TAB DIRECTED ORALLY 1 TAB 1/2 HR PRE PROCEDURE, NOTES: PRE PROCEDURE ONLY TAKING LYRICA 200 MG CAPSULE 1 CAPSULE ORALLY BID MDD2 3MOS SUPPLY CAT D CHRONIC PAIN TAKING TRAMADOL HCL 50 MG TABLET 1 -2 TABLET NEEDED ORALLY EVERY 6 HRS MDD=6 CODE D CHRONIC PAIN NOT-TAKING METOPROLOL SUCCINATE ER 50 MG TABLET EXTENDED RELEASE 24 HOUR 1 TABLET ORALLY ONCE A DAY NOT-TAKING VENTOLIN HFA 108 (90 BASE) MCG/ACT AEROSOL SOLUTION 2 PUFFS NEEDED INHALATION EVERY 4 HRS, NOTES: WEEKS AGO NOT-TAKING LIDOCAINE 5 % OINTMENT 1 APPLICATION TO AFFECTED AREA NEEDED EXTERNALLY THREE TIMES A DAY NOT-TAKING FUROSEMIDE 20 MG TABLET 1 TABLET ORALLY ONCE A DAY NOT-TAKING SOMA 350 MG TABLET 1 TABLET NEEDED ORALLY BEFORE BEDTIME MEDICATION LIST REVIEWED AND RECONCILED WITH THE PATIENT PAST MEDICAL HISTORY DEPRESSION BACK PAIN, INJURY HTN HYPERLIPIDEMIA OBSTRUCTIVE SLEEP APNEA HX OF ENDOMETRIOSIS AND ABNORMAL PAP SMEARS SEASONAL ALLERGIES STAGE 3 KIDNEY DISEASE FIBROMYALGIA ALLERGIES ZONISAMIDE: ELEVATED KIDNEY LEVELS SURGICAL HISTORY PARTIAL HYSTERECTOMY 1994 BREAST BIOPSY BENIGN TUBAL LIGATION 1984 RIGHT KNEE SURGERY CHRONIC NECK PAIN FAMILY HISTORY FATHER: 53 YRS, DIAGNOSED WITH UNSPECIFIED HEART DISEASE, HYPERTENSION MOTHER: 76 YRS, DIABETES, HYPERTENSION 5 BROTHER(S) , 3 SISTER(S) - HEALTHY. 1 SISTER FROM MVA\\NDAUGHTER - RHEUMATOID ARTHRITIS2 DAUGHTERS - AUTOIMMUNE DISEASE. SOCIAL HISTORY GENERAL: TOBACCO USE ARE YOU A:FORMER SMOKER HOW LONG HAS IT BEEN SINCE YOU LAST SMOKED?1-5 YEARS HIV / HEP-C SCREENING HIV TEST OFFERED TO PATIENT:YES DATE OFFERED:05/31/2019 TEST ACCEPTED:NO REASON:PATIENT DECLINED BROCHURE PROVIDED TO PATIENTNO OTHERS AT HOME: OTHER NON-RELATIVE. HOUSING: OWNS MOBILE HOME. DIET: REGULAR. LANGUAGE LANGUAGES SPOKEN:NEPALI RECREATIONAL DRUG USE DRUG USE?NO LEARNING BARRIERS / SPECIAL NEEDS CHANGE FROM LAST VISIT?NO BARRIERS TO LEARNING?NO HEARING IMPAIRED?NO VISION IMPAIRED?YES COGNITIVELY IMPAIRED?NO :CORRECTIVE LENSES READINESS TO LEARN?YES LEARNING PREFERENCES?NO LEARNING CAPABILITIES PRESENT?YES EMOTIONAL BARRIERS?NO SPECIAL DEVICES?YES :CANE MANAGER INFUSION NEEDED?NO PAIN CLINIC PFS, CLERGY, PUBLIC HEALTH REFERRALS PFS REFERRAL NEEDED?NO CLERGY REFERRAL NEEDED?NO PUBLIC HEALTH REFERRAL NEEDED?NO WAS THE PROVIDER NOTIFIED OF ANY PERTINENT INFO?NO HAS THE PATIENT BEEN EDUCATED REGARDING HIS/HER PLAN OF CARE?YES HAS THE PATIENT BEEN EDUCATED REGARDING PAIN, THE RISK FOR PAIN, THE IMPORTANCE OF EFFECTIVE PAIN MANAGEMENT, AND THE PAIN ASSESSMENT PROCESS?YES LATEX QUESTIONNAIRE LATEX ALLERGY : HAVE YOU EVER DEVELOPED ANY TYPE OF REACTION AFTER HANDLING LATEX PRODUCTS SUCH RUBBER GLOVES, CONDOMS, DIAPHRAGMS, BALLOONS, SOCKS, OR UNDERWEAR?NO LATEX ALLERGY : HAVE YOU EVER DEVELOPED ANY TYPE OF REACTION DURING OR AFTER DENTAL APPOINTMENT, VAGINAL/RECTAL EXAMINATION, SURGICAL PROCEDURE, OR ANY OTHER EXPOSURE?NO LATEX RISK : HAVE YOU EVER HAD ANY DIFFICULTY BREATHING OR HIVES AFTER EATING OR HANDLING ANY FRUITS, OR VEGETABLES; SUCH KIWI, BANANAS, STONE FRUITS, OR CHESTNUTSNO LATEX RISK : DO YOU HAVE A PREVIOUS PERSONAL HISTORY OF MORE THAN NINE SURGERIES, SPINA BIFIDA, OR REPEATED CATHERIZATIONS? NO LATEX RISK : ARE YOU FREQUENTLY EXPOSED TO LATEX PRODUCTS IN YOUR OCCUPATION?NO DATE ASKED : 04/08/2019 ADVANCE DIRECTIVE ADVANCE DIRECTIVE DISCUSSED WITH PATIENT:YES HCP MELODY JEAN BAPTISTE [phone] [facility] [id number] FAITH MARITAL STATUS: SINGLE, .. ALCOHOL SCREENING DID YOU HAVE A DRINK CONTAINING ALCOHOL IN THE PAST YEAR?YES HOW OFTEN DID YOU HAVE SIX OR MORE DRINKS ON ONE OCCASION IN THE PAST YEAR?NEVER (0 POINTS) HOW MANY DRINKS DID YOU HAVE ON A TYPICAL DAY WHEN YOU WERE DRINKING IN THE PAST YEAR?1 OR 2 (0 POINTS) HOW OFTEN DID YOU HAVE A DRINK CONTAINING ALCOHOL IN THE PAST YEAR?MONTHLY OR LESS (1 POINT) POINTS1 INTERPRETATIONNEGATIVE OCCUPATION: RETIRED. SEXUAL HX HAD SEX IN THE LAST 12 MONTHS (VAGINAL, ORAL, OR ANAL)?NO LMP:HYSTER HAVE YOU EVER HAD AN STD?NO HOSPITALIZATION/MAJOR DIAGNOSTIC PROCEDURE [facility]- BILATERAL KNEE PAIN, NO NEW MEDICATIONS- HAS APPT WITH [facility] SCHEDULED FOR 11/15/1811/2018 REVIEW OF SYSTEMS REVIEWED BY: PROVIDER: MARCO FULLER . CONSTITUTIONAL: ANY CHANGE IN YOUR MEDICAL CONDITION? NO . CHILLS NO . FEVER NO . INFECTION: DO YOU HAVE NEW INFECTIONS? NO . DO YOU HAVE HISTORY OF MRSA? NO . MUSCULOSKELETAL: ANY NEW PATTERNS OF PAIN OR NUMBNESS? YES, STATES INCREASE IN PAIN FROM HEAD, DOWN RIGHT SHOULDER AND ARM - MAKES HER NAUSEOUS AT TIMES . GASTROENTEROLOGY: ANY NEW CHANGE IN BOWEL CONTROL? NO . GENITOURINARY: ANY NEW CHANGE IN BLADDER CONTROL? NO . IS THERE A CHANCE YOU COULD BE ? NO . HEMATOLOGY/LYMPH: DO YOU TAKE ANY BLOOD THINNERS? (FOR EXAMPLE- COUMADIN, PLAVIX, AGGRENOX, PLATEL, PRADAXA, OR XARELTO) NO . WHEN WAS YOUR LAST DOSE? DATE: TIME: . NEUROLOGY: HAVE YOU FALLEN IN THE PAST 12 MONTHS? NO . ANY NEW EXTREMITY NUMBNESS OR WEAKNESS? NO . CARDIOLOGY: DO YOU HAVE A PACEMAKER OR DEFIBRILLATOR? NO . RESPIRATORY: HAVE YOU BEEN SICK IN THE PAST WEEK? NO . FEVER NO . FLU LIKE SYMPTOMS? NO . COUGH NO . INTEGUMENTARY: DO YOU HAVE ANY RASHES OR OPEN SORES? NO . ALLERGIC/IMMUNO: ARE YOU ALLERGIC TO IV DYE? NO . ANY NEW ALLERGIES? NO . PSYCHIATRIC: DO YOU HAVE THOUGHTS OF HURTING YOURSELF OR SOMEONE ELSE? NO . ARE YOU ABUSED, NEGLECTED, OR IN AN UNSAFE ENVIRONMENT? NO . ENDOCRINOLOGY: ARE YOU DIABETIC? NO . OTHER: DO YOU NEED ANY PRESCRIPTIONS? NO . IF YES, PLEASE LIST: ____ . ANY NEW PROBLEMS WITH YOUR MEDICATIONS? NO . WHEN DID YOU LAST EAT? ____ . WHEN DID YOU LAST DRINK? ____ . WHAT DID YOU LAST DRINK? ____ . NAME OF PERSON DRIVING YOU HOME? ____ . DO YOU HAVE ANY OTHER QUESTIONS OR CONCERNS NO . VITAL SIGNS WT 244.8 LBS, HT 63 IN, BMI 43.36 INDEX, BP 142/73 MM HG, HR 67 /MIN, RR 18 /MIN, TEMP 97.6 F, OXYGEN SAT % 98%, SAFE IN ENV? (Y/N) YES, REVIEWED BY: KAREN. EXAMINATION GENERAL EXAMINATION: LUNGS: LUNG SOUNDS ARE CLEAR . HEART: HEART RATE REGULAR . MUSCULOSKELETAL:*, MUSCLE STRENGTH TESTING 5/5 BILATERAL UPPER EXTREMITIES. . CERVICAL:+ FOR PAIN WITH PALPATION OF CERVICAL SPINE. + FOR PAIN WITH PALPATION OF CERVICAL PARASPINALS. . DIAGNOSTIC TESTS REVIEWED CERVICAL MRI-02/11/19. ASSESSMENTS CERVICAL DISC DISORDER WITH RADICULOPATHY, UNSPECIFIED CERVICAL REGION - M50.10 (PRIMARY) TREATMENT CERVICAL DISC DISORDER WITH RADICULOPATHY, UNSPECIFIED CERVICAL REGION NOTES: C7-T1 SONIA. PREVENTIVE MEDICINE PAIN CLINIC TEACHING: PROCEDURE TEACHING REVIEWED INFORMATION ON CERVICAL EPIDURAL STEROID INJECTION PROCEDURE WITH PATIENT. ALSO REVIEWED PRE-PROCEDURE INSTRUCTIONS. PATIENT VERBALIZED AN UNDERSTANDING. JOVANNI SHARP 07/18/2019 3:01:57 PM > . PROCEDURE CODES FA211 ESTABILISHED PATIENT [facility] FACILITY CHARGE DISPOSITION & COMMUNICATION FOLLOW UP POST (REASON: C7-T1 SONIA) ELECTRONICALLY SIGNED BY ALINA PSIVEY ON 08/03/2019 AT 11:16 AM EDT DISCLAIMER : THIS IS A VISIT SUMMARY EXTRACTED FROM THE [employer] CHART. IT IS NOT A COPY OF THE [employer] PROGRESS NOTE. [place]
== END ==
LOC: M PAIN 10:00
PROVIDERS: ATTEND Nurse Practitioner Family
DX: M50.10 Cervical disc disorder with radiculopathy, unspecified cervical region (principal); F32.9 Major depressive disorder, single episode, unspecified; I12.9 Hypertensive chronic kidney disease with stage 1 through stage 4 chronic kidney disease, or unspecified chronic kidney disease; E78.5 Hyperlipidemia, unspecified; G47.33 Obstructive sleep apnea (adult) (pediatric); N18.3 Chronic kidney disease, stage 3 (moderate); M79.7 Fibromyalgia; Z87.891 Personal history of nicotine dependence; Z79.82 Long term (current) use of aspirin; Z79.899 Other long term (current) drug therapy; Z88.8 Allergy status to other drugs, medicaments and biological substances

== ENCOUNTER → 2019-12-07 | Outpatient (POV) | payer MEDICARE ==
[~2019-12-07] MED LIST changes: +CYCL-707 PO; -CYCL10TA PO
== END ==
LOC: M PAIN 09:00
PROVIDERS: ATTEND Nurse Practitioner Family
DX: M79.18 Myalgia, other site (principal)

== ENCOUNTER → 2019-12-21 | Outpatient (POV) | payer MEDICARE ==
[~2019-12-21] MED LIST changes: +BUPIVACAINE HCL 0.25% 10ML VIAL As Ordered ONE; +BUPIVACAINE HCL 0.25% 30ML VIAL As Ordered ONE; +TRIAMCINOLONE ACETONIDE SUSP 40 MG/ML VIAL (J3301) As Ordered ONE; +diazePAM 5 MG TAB As Ordered ONE; +oxyCODONE 5MG TAB As Ordered ONE
== END ==
LOC: M PAIN 11:00
PROVIDERS: ATTEND Anesthesiology
DX: M79.18 Myalgia, other site (principal)

== ENCOUNTER → 2020-01-19 | Outpatient (CLI) | payer MEDICARE ==
[~2020-01-19] MED LIST changes: -BUPIVACAINE HCL 0.25% 10ML VIAL As Ordered ONE; -BUPIVACAINE HCL 0.25% 30ML VIAL As Ordered ONE; -TRIAMCINOLONE ACETONIDE SUSP 40 MG/ML VIAL (J3301) As Ordered ONE; -diazePAM 5 MG TAB As Ordered ONE; -oxyCODONE 5MG TAB As Ordered ONE
== END ==
LOC: M PAIN 08:51
PROVIDERS: ATTEND Nurse Practitioner Family
DX: M47.812 Spondylosis without myelopathy or radiculopathy, cervical region (principal); Z79.891 Long term (current) use of opiate analgesic

== ENCOUNTER → 2020-01-28 | Outpatient (CLI) | payer MEDICARE | LOC: M LABSMTC 11:43 | PROVIDERS: ATTEND Anesthesiology | DX: Z20.828 Contact with and (suspected) exposure to other viral communicable diseases (principal) | CPT/HCPCS: C9803; U0003 ==

== ENCOUNTER → 2020-02-02 | Outpatient (CLI) | payer MEDICARE ==
[~2020-02-02] MED LIST changes: +BUPIVACAINE HCL 0.25% 30ML VIAL As Ordered ONE; +ISOVUE-M 300 61% 15ML VIAL As Ordered ONE; +LIDOCAINE 1% SDV 30ML VIAL As Ordered ONE; +TRIAMCINOLONE ACETONIDE SUSP 40 MG/ML VIAL (J3301) As Ordered ONE; +diazePAM 5 MG TAB As Ordered ONE; +oxyCODONE 5MG TAB As Ordered ONE
--- NOTE | 2020-02-02 17:05 | ECWPNPC ---
PATIENT NAME: KENTON HUTCHINS : 1960 GENDER: FEMALE VISIT DATE: 02/02/2020 DISCHARGE DATE: 02/02/20 1326 VISIT LOCKED DATE TIME: PHYSICIAN: SUSU REED MD RESOURCE: SUSU REED MD REASON FOR APPOINTMENT 1. BILATERAL THERA CERVICAL FACET BLK C4-C5,C5-C6 HISTORY OF PRESENT ILLNESS GENERAL: -. FALL RISK SCREENING: SCREENING :NO FALLS REPORTED IN THE LAST YEAR PAIN SCREENING: PATIENT HAS A COMPLAINT OF ACUTE OR CHRONIC PAIN :YES LOCATION OF PAIN:NECK, RIGHT SHOULDER INTENSITY OF PAIN (SCALE OF 1 TO 10):6 WHAT DOES YOUR PAIN FEEL LIKE:ACHING, CONTINOUS DURATION:CONTINOUS PAIN IS INCREASED BY:ACTIVITIES PAIN IS DECREASED BY:USE OF PAIN MEDICATIONS NURSING NOTE: -. PAIN CENTER INTAKE QUESTIONS: DO YOU HAVE A HISTORY OF MRSA? :NO DO YOU TAKE A BLOOD THINNERS? :NO DO YOU HAVE ANY BLEEDING DISORDERS? :NO ANY NEW NUMBNESS OR WEAKNESS IN YOUR LEGS OR ARMS? :YES RIGHT UPPER ARM PAIN ANY PACEMAKER,DEFIBRILLATOR, OR DORSAL COLUMN STIMULATOR? :NO DO YOU HAVE ANY RASHES OR OPEN SORES? :NO ARE YOU ALLERGIC TO IV DYE? :NO ARE YOU DIABETIC? :NO ANY NEW PROBLEMS WITH YOUR MEDICATIONS? :NO HAVE YOU RECEIVED A VACCINE IN THE PAST 30 DAYS? :NO DO YOU PLAN TO RECEIVE A VACCINE IN THE NEXT 21 DAYS? :NO DO YOU TAKE ANY IMMUNOSUPPRESSIVE MEDICATIONS? :NO ANY HISTORY OF SEIZURES? :NO ANY HISTORY OF CARDIAC ISSUES OR EVENTS? :NO DO YOU HAVE SLEEP APNEA? :YES DO YOU WEAR A CPAP?YES ANY RECENT HEAD INJURY? :NO DO YOU HAVE ANY NEW INFECTIONS? :NO IS THERE A CHANCE YOU COULD BE ? :NO ARE YOU BREAST FEEDING? :NO WHEN DID YOU LAST EAT? : 02/01/20202099 WHEN DID YOU LAST DRINK? : 02/02/2020 08 WHAT DID YOU LAST DRINK? : BLACK COFFEE NAME OF PERSON DRIVING YOU HOME? : ROB- DAUGHTER DO YOU HAVE ANY OTHER QUESTIONS OR CONCERNS? : - CURRENT MEDICATIONS TAKING ASPIR-81 81 MG TABLET DELAYED RELEASE 1 TABLET P.O. ONCE A DAY, NOTES: 02/02/2020 0730 TAKING LIPITOR 10 MG TABLET 1 TABLET ORALLY ONCE A DAY, NOTES: 02/01/20202099 TAKING MONTELUKAST SODIUM 10 MG TABLET 1 TABLET IN THE EVENING ORALLY ONCE A DAY, NOTES: 02/01/20202099 TAKING LISINOPRIL 10 MG TABLET 1 TABLET ORALLY ONCE A DAY, NOTES: 02/01/20202099 TAKING TYLENOL 8 HOUR 650 MG TABLET EXTENDED RELEASE 2 TABLETS NEEDED ORALLY EVERY 8 HRS, NOTES: NONE LATELY TAKING MAY USE CBD OIL ONCE DAILY, NOTES: ONE MONTH AGO TAKING CYMBALTA 60 MG CAPSULE DELAYED RELEASE PARTICLES 1 CAPSULE ORALLY ONCE A DAY, NOTES: 02/02/2020729 TAKING VALIUM 5 MG TABLET 1 TAB DIRECTED ORALLY 1 TAB 1/2 HR PRE PROCEDURE, NOTES: PRE PROCEDURE ONLY TAKING LYRICA 200 MG CAPSULE 1 CAPSULE ORALLY 1 BID MDD2, NOTES: 02/02/2020729 TAKING TRAMADOL HCL 50 MG TABLET 1 -2 TABLET NEEDED ORALLY EVERY 6 HRS MDD=6 CODE D CHRONIC PAIN, NOTES: 02/01/20202099 NOT-TAKING METOPROLOL SUCCINATE ER 50 MG TABLET EXTENDED RELEASE 24 HOUR 1 TABLET ORALLY ONCE A DAY NOT-TAKING VENTOLIN HFA 108 (90 BASE) MCG/ACT AEROSOL SOLUTION 2 PUFFS NEEDED INHALATION EVERY 4 HRS, NOTES: WEEKS AGO NOT-TAKING LIDOCAINE 5 % OINTMENT 1 APPLICATION TO AFFECTED AREA NEEDED EXTERNALLY THREE TIMES A DAY NOT-TAKING FUROSEMIDE 20 MG TABLET 1 TABLET ORALLY ONCE A DAY NOT-TAKING SOMA 350 MG TABLET 1 TABLET NEEDED ORALLY BEFORE BEDTIME MEDICATION LIST REVIEWED AND RECONCILED WITH THE PATIENT PAST MEDICAL HISTORY DEPRESSION BACK PAIN, INJURY HTN HYPERLIPIDEMIA OBSTRUCTIVE SLEEP APNEA HX OF ENDOMETRIOSIS AND ABNORMAL PAP SMEARS SEASONAL ALLERGIES STAGE 3 KIDNEY DISEASE FIBROMYALGIA ALLERGIES ZONISAMIDE: ELEVATED KIDNEY LEVELS SURGICAL HISTORY PARTIAL HYSTERECTOMY 1994 BREAST BIOPSY BENIGN TUBAL LIGATION 1983 RIGHT KNEE SURGERY CHRONIC NECK PAIN FAMILY HISTORY FATHER: 53 YRS, DIAGNOSED WITH HYPERTENSION, UNSPECIFIED HEART DISEASE MOTHER: 76 YRS, HYPERTENSION, DIABETES 5 BROTHER(S) , 3 SISTER(S) - HEALTHY. 1 SISTER FROM MVA\\NDAUGHTER - RHEUMATOID ARTHRITIS2 DAUGHTERS - AUTOIMMUNE DISEASE. SOCIAL HISTORY GENERAL: TOBACCO USE ARE YOU A:FORMER SMOKER HOW LONG HAS IT BEEN SINCE YOU LAST SMOKED?1-5 YEARS LATEX QUESTIONNAIRE LATEX ALLERGY : HAVE YOU EVER DEVELOPED ANY TYPE OF REACTION AFTER HANDLING LATEX PRODUCTS SUCH RUBBER GLOVES, CONDOMS, DIAPHRAGMS, BALLOONS, SOCKS, OR UNDERWEAR?NO LATEX ALLERGY : HAVE YOU EVER DEVELOPED ANY TYPE OF REACTION DURING OR AFTER DENTAL APPOINTMENT, VAGINAL/RECTAL EXAMINATION, SURGICAL PROCEDURE, OR ANY OTHER EXPOSURE?NO LATEX RISK : HAVE YOU EVER HAD ANY DIFFICULTY BREATHING OR HIVES AFTER EATING OR HANDLING ANY FRUITS, OR VEGETABLES; SUCH KIWI, BANANAS, STONE FRUITS, OR CHESTNUTSNO LATEX RISK : DO YOU HAVE A PREVIOUS PERSONAL HISTORY OF MORE THAN NINE SURGERIES, SPINA BIFIDA, OR REPEATED CATHERIZATIONS? NO LATEX RISK : ARE YOU FREQUENTLY EXPOSED TO LATEX PRODUCTS IN YOUR OCCUPATION?NO DATE ASKED : 02/02/2020 ALCOHOL SCREENING DID YOU HAVE A DRINK CONTAINING ALCOHOL IN THE PAST YEAR?YES HOW OFTEN DID YOU HAVE SIX OR MORE DRINKS ON ONE OCCASION IN THE PAST YEAR?NEVER (0 POINTS) HOW MANY DRINKS DID YOU HAVE ON A TYPICAL DAY WHEN YOU WERE DRINKING IN THE PAST YEAR?1 OR 2 (0 POINTS) HOW OFTEN DID YOU HAVE A DRINK CONTAINING ALCOHOL IN THE PAST YEAR?MONTHLY OR LESS (1 POINT) POINTS1 INTERPRETATIONNEGATIVE RECREATIONAL DRUG USE DRUG USE?NO SEXUAL HX HAD SEX IN THE LAST 12 MONTHS (VAGINAL, ORAL, OR ANAL)?NO LMP:HYSTER HAVE YOU EVER HAD AN STD?NO HIV / HEP-C SCREENING HIV TEST OFFERED TO PATIENT:YES DATE OFFERED:05/31/2019 TEST ACCEPTED:NO REASON:PATIENT DECLINED BROCHURE PROVIDED TO PATIENTNO CONGREGATIONAL [id number] HOLINESS LANGUAGE LANGUAGES SPOKEN:MALAY LEARNING BARRIERS / SPECIAL NEEDS CHANGE FROM LAST VISIT?NO BARRIERS TO LEARNING?NO HEARING IMPAIRED?NO VISION IMPAIRED?YES COGNITIVELY IMPAIRED?NO :CORRECTIVE LENSES READINESS TO LEARN?YES LEARNING PREFERENCES?NO LEARNING CAPABILITIES PRESENT?YES EMOTIONAL BARRIERS?NO SPECIAL DEVICES?YES :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 DIET: REGULAR. MARITAL STATUS: SINGLE, .. OTHERS AT HOME: OTHER NON-RELATIVE. NEW PATIENT PAIN DIARY TODAY'S VISITNOTES PATIENT DESCRIBES PAIN :ACHING, HAVE IT ALL THE TIME FROM 0-10, WHAT LEVEL IS YOUR PAIN TODAY?6 PRECIPITATING FACTORS ACTIVITY MAKES IT WORSE, NIGHT TIME PAIN IS WORSE ALLEVIATING FACTORS HEATING PAD AT NIGHT PAIN CLINIC PFS, CLERGY, PUBLIC HEALTH REFERRALS PFS REFERRAL NEEDED?NO CLERGY REFERRAL NEEDED?NO PUBLIC HEALTH REFERRAL NEEDED?NO WAS THE PROVIDER NOTIFIED OF ANY PERTINENT INFO?NO HAS THE PATIENT BEEN EDUCATED REGARDING HIS/HER PLAN OF CARE?YES HAS THE PATIENT BEEN EDUCATED REGARDING PAIN, THE RISK FOR PAIN, THE IMPORTANCE OF EFFECTIVE PAIN MANAGEMENT, AND THE PAIN ASSESSMENT PROCESS?YES HOUSING: OWNS MOBILE HOME. ADVANCE DIRECTIVE ADVANCE DIRECTIVE DISCUSSED WITH PATIENT:YES HCP MELODY JEAN BAPTISTE [phone] HOSPITALIZATION/MAJOR DIAGNOSTIC PROCEDURE [facility]- BILATERAL KNEE PAIN, NO NEW MEDICATIONS- HAS APPT WITH [facility] SCHEDULED FOR 11/15/1811/2018 VITAL SIGNS WT 233.6 LBS, HT 63 IN, BMI 41.38 INDEX, BP 144/67 MM HG, HR 66 /MIN, RR 18 /MIN, TEMP 96.6 F, OXYGEN SAT % 98%, SAFE IN ENV? (Y/N) YES, NA INITIALS AW 1115, REVIEWED BY: KATHARINE. EXAMINATION GENERAL EXAMINATION: THE PATIENT IS ALERT, ORIENTED TIMES THREE AND COOPERATIVE. HEART SHOWS REGULAR RHYTHM, NO MURMURS AND NO GALLOPS. LUNGS ARE CLEAR TO AUSCULTATION. ASSESSMENTS SPONDYLOSIS, CERVICAL - M47.812 (PRIMARY) TREATMENT SPONDYLOSIS, CERVICAL SMC FACET BLOCK (PAIN)[id number] PROCEDURES PN CERVICAL FACET BLOCK LOW BILATERAL CERVICAL PRE PROCEDURE DIAGNOSIS CERVICAL SPONDYLOSIS POST PROCEDURE DIAGNOSIS CERVICAL SPONDYLOSIS PROCEDURE BILATERAL C4-C5 AND BILATERAL C5-C6 THERAPEUTIC CERVICAL FACET BLOCK SURGEON DR. 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 I EVALUATED THE PATIENT AND REVIEWED THE CHART. I WENT OVER THE RISKS, ALTERNATIVES, AND BENEFITS ASSOCIATED WITH THIS PROCEDURE. I DISCUSSED THAT THE USE OF STEROIDS MAY CONTRIBUTE TO IMMUNOSUPPRESSION OF THE PATIENT'S BODY AGAINST INFECTIONS SUCH COVID-19. THE PATIENT IS AWARE OF THE POTENTIAL COMPLICATIONS ASSOCIATED WITH THIS VIRUS, INCLUDING, BUT NOT LIMITED TO, . THE PATIENT WOULD LIKE TO PROCEED AND GIVE CONSENT TO PERFORMED THE PROCEDURE. THE PATIENT DENIES UNEXPLAINABLE WEIGHT LOSS, FEVER, CHILLS, OR NEW CHANGES IN URINARY OR BOWEL CONTROL. THE PATIENT IS COVID-19 NEGATIVE DESCRIPTION OF PROCEDURE THE PATIENT WAS BROUGHT TO THE PROCEDURE ROOM AND PLACED IN THE PRONE POSITION. THE CERVICOTHORACIC AREA WAS CLEANED WITH CHLORAPREP SOLUTION AND DRAPED ASEPTICALLY. THE PROCEDURE WAS DONE UNDER STERILE CONDITIONS. A TIMEOUT WAS PERFORMED WHERE LATERALITY AND THE SITE OF THE PROCEDURE WERE CHECKED AND CONFIRMED WITH EVERYONE IN THE ROOM. UNDER FLUOROSCOPIC GUIDANCE, TARGET POINT WAS SELECTED AT THE RIGHT AND LEFT C4-C5 AND RIGHT AND LEFT C5-C6 CERVICAL FACET JOINT. TARGET POINTS WERE SELECTED AFTER LATERAL ROTATION AND TILT OF THE MAGNIFIER OF THE C-ARM. I CONFIRMED AGAIN WITH EVERYONE IN THE ROOM THE LATERALITY OF THE TARGET. LIDOCAINE 0.5% WAS USED TO NUMB THE SKIN AND THE SUBCUTANEOUS TISSUE BELOW IT. SPINAL NEEDLES, 22-GAUGE, WERE ADVANCED UNDER FLUOROSCOPIC GUIDANCE AND FOLLOWING PATIENT FEEDBACK UNTIL THE TARGETS WERE TOUCHED. THE POSITION OF THE NEEDLES WAS VERIFIED WITH AP AND LATERAL VIEWS. AFTER PROPER POSITION OF THE NEEDLES WAS ACHIEVED, ISOVUE-M DYE 30%, 0.1 ML, WAS INJECTED SHOWING SPREAD OF THE DYE. KENALOG 20 MG WAS INJECTED AT EACH SITE. THEN A SOLUTION OF 6 ML OF BUPIVACAINE 0.125% WAS USED TO FLUSH EACH SITE. THE MEDICATIONS WERE VERIFIED WITH THE THE NURSE. THERE WAS NO EVIDENCE OF BLOOD, PARESTHESIA OR CEREBROSPINAL FLUID DURING THE PROCEDURE. THE PATIENT WAS SENT TO THE RECOVERY ROOM. THE PATIENT WAS MOVING THE EXTREMITIES AND DOING WELL. THERE WERE NO COMPLICATIONS DURING THE PROCEDURE. ESTIMATED BLOOD LOSS WAS LESS THAN 5 ML. FLUOROSCOPY TIME WAS 16 SECONDS POST PROCEDURE NOTE THE PATIENT WILL BE SEEN IN A FOLLOW UP IN THE NEXT FEW WEEKS. I AM LOOKING FOR LONG LASTING RELIEF FOR THE PATIENT WITH THIS INTERVENTION. INSTRUCTIONS WERE GIVEN, QUESTIONS WERE ANSWERED, AND THE PATIENT EXPRESSED UNDERSTANDING AND AGREES WITH THE PLAN. I, ELVIN CARLSON, DOCUMENTED THE ABOVE INFORMATION ACTING A SCRIBE FOR DR. REED. I HAVE REVIEWED THE ABOVE DOCUMENT, WRITTEN BY ELVIN CARLSON, SUPERINTENDENT POLICE, AND I VERIFY THAT IT IS ACCURATE PROCEDURE CODES 02322 INJ PARAVERT F JNT C/T 1 LEV, MODIFIERS: 50 [id number] INJ PARAVERT F JNT C/T 2 LEV, MODIFIERS: 50 DISPOSITION & COMMUNICATION FOLLOW UP FOLLOW UP WITH TEA ROOM MANAGER (REASON: POST THERAPEUTIC FACET BLOCK BILATERAL C4-C5, C5-C6) ELECTRONICALLY SIGNED BY SUSU REED MD, MD ON 02/02/2020 AT 04:46 PM EDT DISCLAIMER : THIS IS A VISIT SUMMARY EXTRACTED FROM THE [employer] CHART. IT IS NOT A COPY OF THE [employer] PROGRESS NOTE. AL[place]AN
--- NOTE | 2020-02-08 12:39 | REP ---
PARTIAL CERVICAL SPINE SERIES: SINGLE VIEW HISTORY: Bilateral cervical facet block for pain. FLUROSCOPY TIME: 16.4 seconds reported. FINDINGS: A single [id number] fluoroscopically obtained spot radiograph of the cervical spine documents needle position and contrast injection associated with cervical facet injection procedure. MTDD
== END ==
LOC: M PAIN 11:00
PROVIDERS: ATTEND Anesthesiology
DX: M47.812 Spondylosis without myelopathy or radiculopathy, cervical region (principal); G47.33 Obstructive sleep apnea (adult) (pediatric); I10 Essential (primary) hypertension; E78.5 Hyperlipidemia, unspecified; M79.7 Fibromyalgia; Z86.59 Personal history of other mental and behavioral disorders; Z87.891 Personal history of nicotine dependence; Z88.8 Allergy status to other drugs, medicaments and biological substances; E66.01 Morbid (severe) obesity due to excess calories; Z68.41 Body mass index [BMI] 40.0-44.9, adult; Z79.82 Long term (current) use of aspirin; Z79.899 Other long term (current) drug therapy
CPT/HCPCS: 64490; 64491; J3301; Q9967

== ENCOUNTER → 2020-02-28 | Outpatient (CLI) | payer MEDICARE ==
[~2020-02-28] MED LIST changes: -BUPIVACAINE HCL 0.25% 30ML VIAL As Ordered ONE; -ISOVUE-M 300 61% 15ML VIAL As Ordered ONE; -LIDOCAINE 1% SDV 30ML VIAL As Ordered ONE; -TRIAMCINOLONE ACETONIDE SUSP 40 MG/ML VIAL (J3301) As Ordered ONE; -diazePAM 5 MG TAB As Ordered ONE; -oxyCODONE 5MG TAB As Ordered ONE
--- NOTE | 2020-03-03 00:50 | ECWPNPC ---
PATIENT NAME: KENTON HUTCHINS : 1960 GENDER: FEMALE VISIT DATE: 02/28/2020 DISCHARGE DATE: 02/28/20 1110 VISIT LOCKED DATE TIME: PHYSICIAN: MARCO PEACE RESOURCE: MARCO PEACE REASON FOR APPOINTMENT 1. POST BILAT THERA CERVICAL FACET BLK C4-C5,C5-C6 HISTORY OF PRESENT ILLNESS DEPRESSION SCREENING: PHQ-2 (2015 EDITION) LITTLE INTEREST OR PLEASURE IN DOING THINGS?NOT AT ALL FEELING DOWN, DEPRESSED, OR HOPELESS?NOT AT ALL TOTAL SCORE0 GENERAL: HERE FOR POST PROCEDURE FOLLOW-UP. HAD BILATERAL CERVICAL FACET BLOCK THERAPEUTIC ON 02/02/2020. REPORTING MARKED REDUCTION IN NECK PAIN AND HEADACHE PAIN SINCE PROCEDURE. REPORTING MILD TO MODERATE PAIN IN RIGHT NECK THAT RADIATES INTO HER RIGHT SHOULDER. STATES THAT THIS IS TOLERABLE. BRIEFLY DISCUSSED DOING CERVICAL EPIDURAL STEROID INJECTION IF THIS PERSISTS OR GETS WORSE.-. FALL RISK SCREENING: SCREENING :NO FALLS REPORTED IN THE LAST YEAR NONE PAIN SCREENING: PATIENT HAS A COMPLAINT OF ACUTE OR CHRONIC PAIN :YES LOCATION OF PAIN:NECK SMALL PAIN RUNNING DOWN THE RIGHT SIDE OF HER NECK TO HER SHOULDER INTENSITY OF PAIN (SCALE OF 1 TO 10):2 WHAT DOES YOUR PAIN FEEL LIKE:ACHING, SHARP DURATION:CONTINOUS PAIN IS INCREASED BY:ACTIVITIES PAIN IS DECREASED BY:USE OF PAIN MEDICATIONS NURSING NOTE: -. PAIN CENTER INTAKE QUESTIONS: DO YOU HAVE A HISTORY OF MRSA? :NO DO YOU TAKE A BLOOD THINNERS? :NO DO YOU HAVE ANY BLEEDING DISORDERS? :NO ANY NEW NUMBNESS OR WEAKNESS IN YOUR LEGS OR ARMS? :YES NUMBING FEELING AND SMALL SHAKE IN THE RIGHT ARM, WRIST AND HAND ANY PACEMAKER,DEFIBRILLATOR, OR DORSAL COLUMN STIMULATOR? :NO DO YOU HAVE ANY RASHES OR OPEN SORES? :NO ARE YOU ALLERGIC TO IV DYE? :NO ARE YOU DIABETIC? :NO ANY NEW PROBLEMS WITH YOUR MEDICATIONS? :NO HAVE YOU RECEIVED A VACCINE IN THE PAST 30 DAYS? :NO DO YOU PLAN TO RECEIVE A VACCINE IN THE NEXT 21 DAYS? :NO DO YOU NEED ANY PRESCRIPTION? :NO DO YOU TAKE ANY IMMUNOSUPPRESSIVE MEDICATIONS? :NO IS THERE A CHANCE YOU COULD BE ? :NO ARE YOU BREAST FEEDING? :NO CURRENT MEDICATIONS TAKING ASPIR-81 81 MG TABLET DELAYED RELEASE 1 TABLET P.O. ONCE A DAY, NOTES: 02/02/2020 0730 TAKING LIPITOR 10 MG TABLET 1 TABLET ORALLY ONCE A DAY, NOTES: 02/01/20202099 TAKING MONTELUKAST SODIUM 10 MG TABLET 1 TABLET IN THE EVENING ORALLY ONCE A DAY, NOTES: 02/01/20202099 TAKING LISINOPRIL 10 MG TABLET 1 TABLET ORALLY ONCE A DAY, NOTES: 02/01/20202099 TAKING TYLENOL 8 HOUR 650 MG TABLET EXTENDED RELEASE 2 TABLETS NEEDED ORALLY EVERY 8 HRS, NOTES: NONE LATELY TAKING MAY USE CBD OIL ONCE DAILY, NOTES: ONE MONTH AGO TAKING CYMBALTA 60 MG CAPSULE DELAYED RELEASE PARTICLES 1 CAPSULE ORALLY ONCE A DAY, NOTES: 02/02/2020729 TAKING VALIUM 5 MG TABLET 1 TAB DIRECTED ORALLY 1 TAB 1/2 HR PRE PROCEDURE, NOTES: PRE PROCEDURE ONLY TAKING LYRICA 200 MG CAPSULE 1 CAPSULE ORALLY 1 BID MDD2, NOTES: 02/02/2020729 TAKING TRAMADOL HCL 50 MG TABLET 1 -2 TABLET NEEDED ORALLY EVERY 6 HRS MDD=6 CODE D CHRONIC PAIN, NOTES: 02/01/20202099 NOT-TAKING METOPROLOL SUCCINATE ER 50 MG TABLET EXTENDED RELEASE 24 HOUR 1 TABLET ORALLY ONCE A DAY NOT-TAKING VENTOLIN HFA 108 (90 BASE) MCG/ACT AEROSOL SOLUTION 2 PUFFS NEEDED INHALATION EVERY 4 HRS, NOTES: WEEKS AGO NOT-TAKING LIDOCAINE 5 % OINTMENT 1 APPLICATION TO AFFECTED AREA NEEDED EXTERNALLY THREE TIMES A DAY NOT-TAKING FUROSEMIDE 20 MG TABLET 1 TABLET ORALLY ONCE A DAY NOT-TAKING SOMA 350 MG TABLET 1 TABLET NEEDED ORALLY BEFORE BEDTIME MEDICATION LIST REVIEWED AND RECONCILED WITH THE PATIENT PAST MEDICAL HISTORY DEPRESSION BACK PAIN, INJURY HTN HYPERLIPIDEMIA OBSTRUCTIVE SLEEP APNEA HX OF ENDOMETRIOSIS AND ABNORMAL PAP SMEARS SEASONAL ALLERGIES STAGE 3 KIDNEY DISEASE FIBROMYALGIA ALLERGIES ZONISAMIDE: ELEVATED KIDNEY LEVELS SURGICAL HISTORY PARTIAL HYSTERECTOMY 1994 BREAST BIOPSY BENIGN TUBAL LIGATION 1983 RIGHT KNEE SURGERY CHRONIC NECK PAIN FAMILY HISTORY FATHER: 53 YRS, DIAGNOSED WITH HYPERTENSION, UNSPECIFIED HEART DISEASE MOTHER: 76 YRS, DIABETES, HYPERTENSION 5 BROTHER(S) , 3 SISTER(S) - HEALTHY. 1 SISTER FROM MVA\\NDAUGHTER - RHEUMATOID ARTHRITIS2 DAUGHTERS - AUTOIMMUNE DISEASE. SOCIAL HISTORY GENERAL: TOBACCO USE ARE YOU A:FORMER SMOKER HOW LONG HAS IT BEEN SINCE YOU LAST SMOKED?1-5 YEARS LATEX QUESTIONNAIRE LATEX ALLERGY : HAVE YOU EVER DEVELOPED ANY TYPE OF REACTION AFTER HANDLING LATEX PRODUCTS SUCH RUBBER GLOVES, CONDOMS, DIAPHRAGMS, BALLOONS, SOCKS, OR UNDERWEAR?NO LATEX ALLERGY : HAVE YOU EVER DEVELOPED ANY TYPE OF REACTION DURING OR AFTER DENTAL APPOINTMENT, VAGINAL/RECTAL EXAMINATION, SURGICAL PROCEDURE, OR ANY OTHER EXPOSURE?NO LATEX RISK : HAVE YOU EVER HAD ANY DIFFICULTY BREATHING OR HIVES AFTER EATING OR HANDLING ANY FRUITS, OR VEGETABLES; SUCH KIWI, BANANAS, STONE FRUITS, OR CHESTNUTSNO LATEX RISK : DO YOU HAVE A PREVIOUS PERSONAL HISTORY OF MORE THAN NINE SURGERIES, SPINA BIFIDA, OR REPEATED CATHERIZATIONS? NO LATEX RISK : ARE YOU FREQUENTLY EXPOSED TO LATEX PRODUCTS IN YOUR OCCUPATION?NO DATE ASKED : 02/28/2020 ALCOHOL SCREENING DID YOU HAVE A DRINK CONTAINING ALCOHOL IN THE PAST YEAR?YES HOW OFTEN DID YOU HAVE SIX OR MORE DRINKS ON ONE OCCASION IN THE PAST YEAR?NEVER (0 POINTS) HOW MANY DRINKS DID YOU HAVE ON A TYPICAL DAY WHEN YOU WERE DRINKING IN THE PAST YEAR?1 OR 2 (0 POINTS) HOW OFTEN DID YOU HAVE A DRINK CONTAINING ALCOHOL IN THE PAST YEAR?MONTHLY OR LESS (1 POINT) POINTS1 INTERPRETATIONNEGATIVE RECREATIONAL DRUG USE DRUG USE?NO SEXUAL HX HAD SEX IN THE LAST 12 MONTHS (VAGINAL, ORAL, OR ANAL)?NO LMP:HYSTER HAVE YOU EVER HAD AN STD?NO HIV / HEP-C SCREENING HIV TEST OFFERED TO PATIENT:YES DATE OFFERED:05/31/2019 TEST ACCEPTED:NO REASON:PATIENT DECLINED BROCHURE PROVIDED TO PATIENTNO YAZIDISM [id number] ANABAPTISM LANGUAGE LANGUAGES SPOKEN:THAI LEARNING BARRIERS / SPECIAL NEEDS CHANGE FROM LAST VISIT?NO BARRIERS TO LEARNING?NO HEARING IMPAIRED?NO VISION IMPAIRED?YES COGNITIVELY IMPAIRED?NO :CORRECTIVE LENSES READINESS TO LEARN?YES LEARNING PREFERENCES?NO LEARNING CAPABILITIES PRESENT?YES EMOTIONAL BARRIERS?NO SPECIAL 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 DIET: REGULAR. MARITAL STATUS: SINGLE, .. OTHERS AT HOME: OTHER NON-RELATIVE. TODAY'S VISITNOTES PATIENT DESCRIBES PAIN :ACHING, HAVE IT ALL THE TIME FROM 0-10, WHAT LEVEL IS YOUR PAIN TODAY?6 PRECIPITATING FACTORS ACTIVITY MAKES IT WORSE, NIGHT TIME PAIN IS WORSE ALLEVIATING FACTORS HEATING PAD AT NIGHT PAIN CLINIC PFS, CLERGY, PUBLIC HEALTH REFERRALS PFS REFERRAL NEEDED?NO CLERGY REFERRAL NEEDED?NO PUBLIC HEALTH REFERRAL NEEDED?NO WAS THE PROVIDER NOTIFIED OF ANY PERTINENT INFO?NO HAS THE PATIENT BEEN EDUCATED REGARDING HIS/HER PLAN OF CARE?YES HAS THE PATIENT BEEN EDUCATED REGARDING PAIN, THE RISK FOR PAIN, THE IMPORTANCE OF EFFECTIVE PAIN MANAGEMENT, AND THE PAIN ASSESSMENT PROCESS?YES HOUSING: OWNS MOBILE HOME. ADVANCE DIRECTIVE ADVANCE DIRECTIVE DISCUSSED WITH PATIENT:YES HCP MELODY ITA [phone] HOSPITALIZATION/MAJOR DIAGNOSTIC PROCEDURE [facility]- BILATERAL KNEE PAIN, NO NEW MEDICATIONS- HAS APPT WITH [facility] SCHEDULED FOR 11/15/1811/2018 REVIEW OF SYSTEMS REVIEWED BY: PROVIDER: MARCO FULLER . CONSTITUTIONAL: ANY CHANGE IN YOUR MEDICAL CONDITION? NO . CHILLS NO . FEVER NO . INFECTION: DO YOU HAVE NEW INFECTIONS? NO . DO YOU HAVE HISTORY OF MRSA? NO . GASTROENTEROLOGY: ANY NEW CHANGE IN BOWEL CONTROL? NO . GENITOURINARY: ANY NEW CHANGE IN BLADDER CONTROL? NO . IS THERE A CHANCE YOU COULD BE ? NO . HEMATOLOGY/LYMPH: DO YOU TAKE ANY BLOOD THINNERS? (FOR EXAMPLE- COUMADIN, PLAVIX, AGGRENOX, PLATEL, PRADAXA, OR XARELTO) NO . WHEN WAS YOUR LAST DOSE? DATE: TIME: . NEUROLOGY: HAVE YOU FALLEN IN THE PAST 12 MONTHS? NO . OTHER NEW NUMBNESS OR PAIN PATTERNS NOT MENTIONED NO . CARDIOLOGY: DO YOU HAVE A PACEMAKER OR DEFIBRILLATOR? NO . RESPIRATORY: HAVE YOU BEEN SICK IN THE PAST WEEK? NO . FEVER NO . FLU LIKE SYMPTOMS? NO . COUGH NO . INTEGUMENTARY: DO YOU HAVE ANY RASHES OR OPEN SORES? NO . ALLERGIC/IMMUNO: ARE YOU ALLERGIC TO IV DYE? NO . ANY NEW ALLERGIES? NO . PSYCHIATRIC: DO YOU HAVE THOUGHTS OF HURTING YOURSELF OR SOMEONE ELSE? NO . ARE YOU ABUSED, NEGLECTED, OR IN AN UNSAFE ENVIRONMENT? NO . ENDOCRINOLOGY: ARE YOU DIABETIC? NO . OTHER: DO YOU NEED ANY PRESCRIPTIONS? NO . IF YES, PLEASE LIST: ____ . ANY NEW PROBLEMS WITH YOUR MEDICATIONS? NO . WHEN DID YOU LAST EAT? ____ . WHEN DID YOU LAST DRINK? ____ . WHAT DID YOU LAST DRINK? ____ . NAME OF PERSON DRIVING YOU HOME? ____ . DO YOU HAVE ANY OTHER QUESTIONS OR CONCERNS NO . VITAL SIGNS WT 234.6 LBS, HT 63 IN, BMI 41.55 INDEX, BP 166/71 MM HG, HR 86 /MIN, RR 18 /MIN, TEMP 96.9 F, OXYGEN SAT % 97%, SAFE IN ENV? (Y/N) YES, NA INITIALS MT 10:35, REVIEWED BY: KAREN. EXAMINATION GENERAL EXAMINATION: GENERALAWAKE,ALERT ,PLEASANT . PSYCHAFFECT NORMAL . LUNGS:LUNG LICEA ARE CLEAR TO AUSCULTATION BILATERALLY. GOOD MOVEMENT OF AIR . HEART:S1, S2 IN A REGULAR RATE AND RHYTHM. NO SIGNIFICANT MURMURS, RUBS OR GALLOPS NOTED . ASSESSMENTS OTHER CHRONIC PAIN - G89.29 (PRIMARY) CERVICAL SPONDYLOSIS - M47.812 TREATMENT OTHER CHRONIC PAIN PAIN PROCEDURE LOGDATE OF [id number]/1/20PROCEDURE:BILATERAL CERVICAL THERAPEUTIC FACET BLOCK C4-C5, C5-I7YCCSGE OF PRE SEDATEVALIUM 5 MG, OXYCODONE 5 MGRESULT:CONTINUES TO BENEFIT FROM PROCEDURE TODAY PROCEDURE CODES FA211 ESTABILISHED PATIENT [facility] CHARGE DISPOSITION & COMMUNICATION FOLLOW UP 3 MONTHS (REASON: MEDICATION MANAGEMENT/NECK PAIN) ELECTRONICALLY SIGNED BY ALINA SPIVEY ON 03/02/2020 AT 03:59 PM EDT DISCLAIMER : THIS IS A VISIT SUMMARY EXTRACTED FROM THE [employer] CHART. IT IS NOT A COPY OF THE [employer] PROGRESS NOTE. [place]
== END ==
LOC: M PAIN 10:30
PROVIDERS: ATTEND Nurse Practitioner Family
DX: G89.29 Other chronic pain (principal); M47.812 Spondylosis without myelopathy or radiculopathy, cervical region; F32.9 Major depressive disorder, single episode, unspecified; I12.9 Hypertensive chronic kidney disease with stage 1 through stage 4 chronic kidney disease, or unspecified chronic kidney disease; E78.5 Hyperlipidemia, unspecified; G47.33 Obstructive sleep apnea (adult) (pediatric); J30.2 Other seasonal allergic rhinitis; N18.30 Chronic kidney disease, stage 3 unspecified; M79.7 Fibromyalgia; Z87.891 Personal history of nicotine dependence; Z79.82 Long term (current) use of aspirin; Z79.891 Long term (current) use of opiate analgesic; Z79.899 Other long term (current) drug therapy; Z88.8 Allergy status to other drugs, medicaments and biological substances

== ENCOUNTER → 2020-05-30 | Outpatient (CLI) | payer MEDICARE ==
[~2020-05-30] MED LIST changes: +GABA-282 PO; -GABA-843 PO
--- NOTE | 2020-06-01 08:08 | ECWPNPC ---
PATIENT NAME: KENTON HUTCHINS : 1960 GENDER: FEMALE VISIT DATE: 05/30/2020 DISCHARGE DATE: 05/30/20 110 VISIT LOCKED DATE TIME: PHYSICIAN: MARCO PEACE RESOURCE: MARCO PEACE REASON FOR APPOINTMENT 1. MEDICATION MANAGEMENT/NECK PAIN HISTORY OF PRESENT ILLNESS GENERAL: HERE FOR FOLLOW-UP OF PERSISTENT HEADACHE AND NECK PAIN. CONTINUES TO BENEFIT SOMEWHAT FROM CERVICAL THERAPEUTIC FACET BLOCKS DONE SEVERAL MONTHS AGO. FINDS MEDICATION HELPFUL AT REDUCING PAIN AND KEEPING HER FUNCTIONAL. DENIES ADVERSE SIDE EFFECTS OF MEDICATION. -. FALL RISK SCREENING: SCREENING :TWO OR MORE FALLS WITHOUT INJURY IN THE PAST YEAR PAIN SCREENING: PATIENT HAS A COMPLAINT OF ACUTE OR CHRONIC PAIN :YES LOCATION OF PAIN:NECK INTENSITY OF PAIN (SCALE OF 1 TO 10):6 WHAT DOES YOUR PAIN FEEL LIKE:ACHING, BURNING, STABBING, THROBBING, SHOOTING DURATION:CONTINOUS, CONSTANT, ALL DAY PAIN IS INCREASED BY:ACTIVITIES PAIN IS DECREASED BY:USE OF PAIN MEDICATIONS NURSING NOTE: -. PAIN CENTER INTAKE QUESTIONS: DO YOU HAVE A HISTORY OF MRSA? :NO DO YOU TAKE A BLOOD THINNERS? :NO DO YOU HAVE ANY BLEEDING DISORDERS? :NO ANY NEW NUMBNESS OR WEAKNESS IN YOUR LEGS OR ARMS? :YES NUMBING FEELING AND SMALL SHAKE IN THE RIGHT ARM, WRIST AND HAND ANY PACEMAKER,DEFIBRILLATOR, OR DORSAL COLUMN STIMULATOR? :NO DO YOU HAVE ANY RASHES OR OPEN SORES? :NO ARE YOU ALLERGIC TO IV DYE? :NO ARE YOU DIABETIC? :NO ANY NEW PROBLEMS WITH YOUR MEDICATIONS? :NO HAVE YOU RECEIVED A VACCINE IN THE PAST 30 DAYS? :NO DO YOU PLAN TO RECEIVE A VACCINE IN THE NEXT 21 DAYS? :NO DO YOU NEED ANY PRESCRIPTION? :NO DO YOU TAKE ANY IMMUNOSUPPRESSIVE MEDICATIONS? :NO IS THERE A CHANCE YOU COULD BE ? :NO ARE YOU BREAST FEEDING? :NO CURRENT MEDICATIONS TAKING ASPIR-81 81 MG TABLET DELAYED RELEASE 1 TABLET P.O. ONCE A DAY TAKING LIPITOR 10 MG TABLET 1 TABLET ORALLY ONCE A DAY TAKING MONTELUKAST SODIUM 10 MG TABLET 1 TABLET IN THE EVENING ORALLY ONCE A DAY TAKING LISINOPRIL 10 MG TABLET 1 TABLET ORALLY ONCE A DAY TAKING TYLENOL 8 HOUR 650 MG TABLET EXTENDED RELEASE 2 TABLETS NEEDED ORALLY EVERY 8 HRS TAKING MAY USE CBD OIL ONCE DAILY TAKING CYMBALTA 60 MG CAPSULE DELAYED RELEASE PARTICLES 1 CAPSULE ORALLY ONCE A DAY TAKING VALIUM 5 MG TABLET 1 TAB DIRECTED ORALLY 1 TAB 1/2 HR PRE PROCEDURE TAKING TRAMADOL HCL 50 MG TABLET 1 -2 TABLET NEEDED ORALLY EVERY 6 HRS MDD=6 CODE D CHRONIC PAIN TAKING LYRICA 200 MG CAPSULE 1 CAPSULE ORALLY 1 BID MDD2 NOT-TAKING METOPROLOL SUCCINATE ER 50 MG TABLET EXTENDED RELEASE 24 HOUR 1 TABLET ORALLY ONCE A DAY NOT-TAKING VENTOLIN HFA 108 (90 BASE) MCG/ACT AEROSOL SOLUTION 2 PUFFS NEEDED INHALATION EVERY 4 HRS, NOTES: WEEKS AGO NOT-TAKING LIDOCAINE 5 % OINTMENT 1 APPLICATION TO AFFECTED AREA NEEDED EXTERNALLY THREE TIMES A DAY NOT-TAKING FUROSEMIDE 20 MG TABLET 1 TABLET ORALLY ONCE A DAY NOT-TAKING SOMA 350 MG TABLET 1 TABLET NEEDED ORALLY BEFORE BEDTIME MEDICATION LIST REVIEWED AND RECONCILED WITH THE PATIENT PAST MEDICAL HISTORY BACK PAIN, INJURY HTN HYPERLIPIDEMIA OBSTRUCTIVE SLEEP APNEA HX OF ENDOMETRIOSIS AND ABNORMAL PAP SMEARS SEASONAL ALLERGIES STAGE 3 KIDNEY DISEASE FIBROMYALGIA DEPRESSION CATARACTS BOTH EYES ALLERGIES ZONISAMIDE: ELEVATED KIDNEY LEVELS SURGICAL HISTORY PARTIAL HYSTERECTOMY 1994 BREAST BIOPSY BENIGN TUBAL LIGATION 1983 RIGHT KNEE SURGERY CHRONIC NECK PAIN FAMILY HISTORY FATHER: 53 YRS, DIAGNOSED WITH HYPERTENSION, UNSPECIFIED HEART DISEASE MOTHER: 76 YRS, HYPERTENSION, DIABETES 5 BROTHER(S) , 3 SISTER(S) - HEALTHY. 1 SISTER FROM MVA\\NDAUGHTER - RHEUMATOID ARTHRITIS2 DAUGHTERS - AUTOIMMUNE DISEASE. SOCIAL HISTORY GENERAL: TOBACCO USE ARE YOU A:FORMER SMOKER HOW LONG HAS IT BEEN SINCE YOU LAST SMOKED?1-5 YEARS LATEX QUESTIONNAIRE LATEX ALLERGY : HAVE YOU EVER DEVELOPED ANY TYPE OF REACTION AFTER HANDLING LATEX PRODUCTS SUCH RUBBER GLOVES, CONDOMS, DIAPHRAGMS, BALLOONS, SOCKS, OR UNDERWEAR?NO LATEX ALLERGY : HAVE YOU EVER DEVELOPED ANY TYPE OF REACTION DURING OR AFTER DENTAL APPOINTMENT, VAGINAL/RECTAL EXAMINATION, SURGICAL PROCEDURE, OR ANY OTHER EXPOSURE?NO LATEX RISK : HAVE YOU EVER HAD ANY DIFFICULTY BREATHING OR HIVES AFTER EATING OR HANDLING ANY FRUITS, OR VEGETABLES; SUCH KIWI, BANANAS, STONE FRUITS, OR CHESTNUTSNO LATEX RISK : DO YOU HAVE A PREVIOUS PERSONAL HISTORY OF MORE THAN NINE SURGERIES, SPINA BIFIDA, OR REPEATED CATHERIZATIONS? NO LATEX RISK : ARE YOU FREQUENTLY EXPOSED TO LATEX PRODUCTS IN YOUR OCCUPATION?NO DATE ASKED : 05/30/2020 ALCOHOL USE: YES OCC. ALCOHOL SCREENING DID YOU HAVE A DRINK CONTAINING ALCOHOL IN THE PAST YEAR?YES HOW OFTEN DID YOU HAVE SIX OR MORE DRINKS ON ONE OCCASION IN THE PAST YEAR?NEVER (0 POINTS) HOW MANY DRINKS DID YOU HAVE ON A TYPICAL DAY WHEN YOU WERE DRINKING IN THE PAST YEAR?1 OR 2 (0 POINTS) HOW OFTEN DID YOU HAVE A DRINK CONTAINING ALCOHOL IN THE PAST YEAR?MONTHLY OR LESS (1 POINT) POINTS1 INTERPRETATIONNEGATIVE RECREATIONAL DRUG USE DRUG USE?NO SEXUAL HX HAD SEX IN THE LAST 12 MONTHS (VAGINAL, ORAL, OR ANAL)?NO LMP:HYSTER HAVE YOU EVER HAD AN STD?NO HIV / HEP-C SCREENING HIV TEST OFFERED TO PATIENT:YES DATE OFFERED:05/31/2019 TEST ACCEPTED:NO REASON:PATIENT DECLINED BROCHURE PROVIDED TO PATIENTNO SABIANISM [id number] MORMONISM LANGUAGE LANGUAGES SPOKEN:ESTONIAN LEARNING BARRIERS / SPECIAL NEEDS CHANGE FROM LAST VISIT?NO BARRIERS TO LEARNING?NO HEARING IMPAIRED?NO VISION IMPAIRED?YES :CORRECTIVE LENSES COGNITIVELY IMPAIRED?NO READINESS TO LEARN?YES LEARNING PREFERENCES?NO LEARNING CAPABILITIES PRESENT?YES EMOTIONAL BARRIERS?NO 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 DIET: REGULAR. MARITAL STATUS: SINGLE, .. OTHERS AT HOME: OTHER NON-RELATIVE. TODAY'S VISITNOTES PATIENT DESCRIBES PAIN :ACHING, HAVE IT ALL THE TIME FROM 0-10, WHAT LEVEL IS YOUR PAIN TODAY?6 PRECIPITATING FACTORS ACTIVITY MAKES IT WORSE, NIGHT TIME PAIN IS WORSE ALLEVIATING FACTORS HEATING PAD AT NIGHT - PFS REFERRAL NEEDED?NO CLERGY REFERRAL NEEDED?NO PUBLIC HEALTH REFERRAL NEEDED?NO WAS THE PROVIDER NOTIFIED OF ANY PERTINENT INFO?NO HAS THE PATIENT BEEN EDUCATED REGARDING HIS/HER PLAN OF CARE?YES HAS THE PATIENT BEEN EDUCATED REGARDING PAIN, THE RISK FOR PAIN, THE IMPORTANCE OF EFFECTIVE PAIN MANAGEMENT, AND THE PAIN ASSESSMENT PROCESS?YES HOUSING: OWNS MOBILE HOME. ADVANCE DIRECTIVE ADVANCE DIRECTIVE DISCUSSED WITH PATIENT:YES HCP MELODY JEAN BAPTISTE [phone] HOSPITALIZATION/MAJOR DIAGNOSTIC PROCEDURE [facility] BILATERAL KNEE PAIN, NO NEW MEDICATIONS- HAS APPT WITH [facility] SCHEDULED FOR 11/15/1811/2018 REVIEW OF SYSTEMS CONSTITUTIONAL: ANY RECENT FEVER NO . CHILLS NO . WEIGHT CHANGE OF UNKNOWN REASONS NO . GASTROENTEROLOGY: NEW UNEXPLAINABLE CHANGES IN BOWEL CONTROL NO . CONSTIPATION NO . GENITOURINARY: ANY NEW CHANGE IN BLADDER CONTROL? NO . NEUROLOGY: NEW ONSET DIZZINESS OR NEUROLOGICAL CHANGES NOT MENTIONED NO . NEW NUMBNESS OR PAIN PATTERNS NOT MENTIONED AND PERTINENT TO TODAY'S VISIT NO . CARDIOLOGY: NEW CHEST PRESSURE NO . NEW CHEST PAIN NO . RESPIRATORY: UNEXPLAINABLE COUGH NO . NEW SHORTNESS OF BREATH NO . VITAL SIGNS WT 248 LBS, HT 63 IN, BMI 43.93 INDEX, BP 144/73 MM HG, HR 71 /MIN, RR 18 /MIN, TEMP 97.3 F, OXYGEN SAT % 98%, SAFE IN ENV? (Y/N) YEST.LAKHWINDER AGUIRRE. EXAMINATION GENERAL EXAMINATION: GENERALAWAKE,ALERT ,PLEASANT . PSYCHAFFECT NORMAL . LUNGS:LUNG LICEA ARE CLEAR TO AUSCULTATION BILATERALLY. GOOD MOVEMENT OF AIR . HEART:S1, S2 IN A REGULAR RATE AND RHYTHM. NO SIGNIFICANT MURMURS, RUBS OR GALLOPS NOTED . ASSESSMENTS OTHER CHRONIC PAIN - G89.29 (PRIMARY) CERVICAL SPONDYLOSIS - M47.812 TREATMENT OTHER CHRONIC PAIN CONTINUE TRAMADOL HCL TABLET, 50 MG, 1 -2 TABLET NEEDED, ORALLY, EVERY 6 HRS MDD=6 CODE D CHRONIC PAIN CONTINUE LYRICA CAPSULE, 200 MG, 1 CAPSULE, ORALLY, 1 BID MDD2 NOTES: ISTOP REGISTRY REVIEWED AND DEMONSTRATES COMPLLIANCE. RECENT URINE TOXICOLOGY REVIEWED. NO UNAUTHORIZED MEDICATIONS. NO ILLICIT SUBSTANCES AND PRESCRIBED MEDICATIONS WERE PRESENT. REMINDED TO BRING BOTH TRAMADOL AND LYRICA TO ALL APPOINTMENTS AT PAIN CLINIC TO AVOID REFILL DELAYS PER CLINIC POLICY , RISKS OF NARCOTIC/OPIOD MEDICATIONS INCLUDES BUT IS NOT LIMITED TO RISK OF DEPENDANCE/DEVELOPMENT OF ADDICTION, MOOD DISTURBANCE AND DEPRESSION, OSTEOPOROSIS, HORMONAL AND LABIDAL CHANGES, RESPIRATORY DEPRESSION AND . PATIENT IS ADVISED NOT TO DRIVE OR DRINK ALCOHOL WHILE ON THESE MEDICATIONS. PROCEDURE CODES FA211 ESTABILISHED PATIENT [facility] CHARGE DISPOSITION & COMMUNICATION FOLLOW UP 3 MONTHS (REASON: MED MGMNT/URINE TOX) ELECTRONICALLY SIGNED BY ALINA SPIVEY ON 05/31/2020 AT 12:39 PM EST DISCLAIMER : THIS IS A VISIT SUMMARY EXTRACTED FROM THE [employer] CHART. IT IS NOT A COPY OF THE [employer] PROGRESS NOTE. ALBAN
== END ==
LOC: M PAIN 10:30
PROVIDERS: ATTEND Nurse Practitioner Family
DX: G89.29 Other chronic pain (principal); M47.812 Spondylosis without myelopathy or radiculopathy, cervical region; I12.9 Hypertensive chronic kidney disease with stage 1 through stage 4 chronic kidney disease, or unspecified chronic kidney disease; E78.5 Hyperlipidemia, unspecified; G47.33 Obstructive sleep apnea (adult) (pediatric); N18.30 Chronic kidney disease, stage 3 unspecified; M79.7 Fibromyalgia; F32.9 Major depressive disorder, single episode, unspecified; H26.9 Unspecified cataract; Z87.891 Personal history of nicotine dependence; Z79.82 Long term (current) use of aspirin; Z79.891 Long term (current) use of opiate analgesic; Z79.899 Other long term (current) drug therapy; Z88.8 Allergy status to other drugs, medicaments and biological substances

== ENCOUNTER → 2020-06-14 | Outpatient (CLI) | payer MEDICARE ==
--- NOTE | 2020-06-14 12:37 | REPMRS ---
Patient History The patient states she has not had a clinical breast exam in over a year. Family history of breast cancer in maternal aunt. Benign lumpectomy of the left breast, 1997. Took estrogen for 2 years. Digital Woman Screen Mammo: June 14, 2020 - Exam #: [id number] Bilateral CC and MLO view(s) were taken. Technologist: Viktoria Brennan, Technologist Prior study comparison: May 31, 2019, bilateral digital woman screen mammo performed at [facility]. September 03, 2016, digital woman screen mammo performed at [facility]. April 04, 2015, digital woman screen mammo performed at [facility]. FINDINGS: The breast tissue is almost entirely fat. The Volpara volumetric breast density category is: A. There has been no change in the appearance of the mammogram from the prior studies. There is no interval development of dominant mass, architectural distortion, or grouped microcalcification typical of malignancy. 3-D tomosynthesis shows no additional findings. Assessment: BI-RADS/ACR category 1 mammogram. Negative Mammogram. Recommendation Routine screening mammogram of both breasts in 1 year (for women over age 40). This patient's [facility] Lifetime Breast Cancer RIsk is estimated at 8.2 %. This mammogram was interpreted with the aid of an FDA-approved computer-aided dectection system. Electronically Signed By: Alexis Linares MD 06/14/20 0607
== END ==
LOC: M WHC 11:42
PROVIDERS: ATTEND Nurse Practitioner Women's Health
DX: Z12.31 Encounter for screening mammogram for malignant neoplasm of breast (principal)

== ENCOUNTER → 2020-08-16 | Outpatient (CLI) | payer MEDICARE ==
--- NOTE | 2020-08-17 23:54 | ECWPNPC ---
PATIENT NAME: KENTON HUTCHINS : 1960 GENDER: FEMALE VISIT DATE: 08/16/2020 DISCHARGE DATE: 08/16/20 1107 VISIT LOCKED DATE TIME: PHYSICIAN: MARCO PEACE RESOURCE: MARCO PEACE REASON FOR APPOINTMENT 1. MED MGMNT/URINE TOX HISTORY OF PRESENT ILLNESS DEPRESSION SCREENING: PHQ-2 (2015 EDITION) LITTLE INTEREST OR PLEASURE IN DOING THINGS?NOT AT ALL FEELING DOWN, DEPRESSED, OR HOPELESS?NOT AT ALL TOTAL SCORE0 GENERAL: HERE FOR FOLLOW-UP OF CHRONIC RIGHT GREATER THAN LEFT NECK PAIN. CONTINUES TO FIND TRAMADOL AND LYRICA EFFECTIVE AT REDUCING PAIN AND KEEPING HER FUNCTIONAL. DENIES ADVERSE SIDE EFFECTS OF MEDICATION. BRINGS IN HER MEDICATION WHICH IS APPROPRIATE FOR WHAT WAS DISPENSED. -. FALL RISK SCREENING: SCREENING FALL TWICE DID NOT GO TO THE ER JUST BLACK AND BLUE. PAIN SCREENING: PATIENT HAS A COMPLAINT OF ACUTE OR CHRONIC PAIN :YES LOCATION OF PAIN:NECK MAINLY RIGHT ARM INTENSITY OF PAIN (SCALE OF 1 TO 10):7 WHAT DOES YOUR PAIN FEEL LIKE:ACHING, STABBING, THROBBING, SORE DURATION:CONTINOUS, CONSTANT, ALL DAY PAIN IS INCREASED BY:ACTIVITIES PAIN IS DECREASED BY:USE OF PAIN MEDICATIONS NURSING NOTE: -. PAIN CENTER INTAKE QUESTIONS: DO YOU HAVE A HISTORY OF MRSA? :NO DO YOU TAKE A BLOOD THINNERS? :NO DO YOU HAVE ANY BLEEDING DISORDERS? :NO ANY NEW NUMBNESS OR WEAKNESS IN YOUR LEGS OR ARMS? :YES NUMBING FEELING AND SMALL SHAKE IN THE RIGHT ARM, WRIST AND HAND ANY PACEMAKER,DEFIBRILLATOR, OR DORSAL COLUMN STIMULATOR? :NO DO YOU HAVE ANY RASHES OR OPEN SORES? :NO ARE YOU ALLERGIC TO IV DYE? :NO ARE YOU DIABETIC? :NO ANY NEW PROBLEMS WITH YOUR MEDICATIONS? :NO HAVE YOU RECEIVED A VACCINE IN THE PAST 30 DAYS? :YES IF SO WHAT VACCINE AND WHEN? MAUREEN AND MAUREEN 07/10/2020 DO YOU PLAN TO RECEIVE A VACCINE IN THE NEXT 21 DAYS? :NO DO YOU NEED ANY PRESCRIPTION? :NO DO YOU TAKE ANY IMMUNOSUPPRESSIVE MEDICATIONS? :NO IS THERE A CHANCE YOU COULD BE ? :NO ARE YOU BREAST FEEDING? :NO CURRENT MEDICATIONS TAKING ASPIR-81 81 MG TABLET DELAYED RELEASE 1 TABLET P.O. ONCE A DAY TAKING LIPITOR 10 MG TABLET 1 TABLET ORALLY ONCE A DAY TAKING MONTELUKAST SODIUM 10 MG TABLET 1 TABLET IN THE EVENING ORALLY ONCE A DAY TAKING LISINOPRIL 10 MG TABLET 1 TABLET ORALLY ONCE A DAY TAKING TYLENOL 8 HOUR 650 MG TABLET EXTENDED RELEASE 2 TABLETS NEEDED ORALLY EVERY 8 HRS TAKING MAY USE CBD OIL ONCE DAILY TAKING CYMBALTA 60 MG CAPSULE DELAYED RELEASE PARTICLES 1 CAPSULE ORALLY ONCE A DAY TAKING VALIUM 5 MG TABLET 1 TAB DIRECTED ORALLY 1 TAB 1/2 HR PRE PROCEDURE TAKING TRAMADOL HCL 50 MG TABLET 1 -2 TABLET NEEDED ORALLY EVERY 6 HRS MDD=6 CODE D CHRONIC PAIN TAKING LYRICA 200 MG CAPSULE 1 CAPSULE ORALLY 1 BID MDD2 3MOS SUPPLY CAT D CHRONIC PAIN NOT-TAKING METOPROLOL SUCCINATE ER 50 MG TABLET EXTENDED RELEASE 24 HOUR 1 TABLET ORALLY ONCE A DAY NOT-TAKING VENTOLIN HFA 108 (90 BASE) MCG/ACT AEROSOL SOLUTION 2 PUFFS NEEDED INHALATION EVERY 4 HRS, NOTES: WEEKS AGO NOT-TAKING LIDOCAINE 5 % OINTMENT 1 APPLICATION TO AFFECTED AREA NEEDED EXTERNALLY THREE TIMES A DAY NOT-TAKING FUROSEMIDE 20 MG TABLET 1 TABLET ORALLY ONCE A DAY NOT-TAKING SOMA 350 MG TABLET 1 TABLET NEEDED ORALLY BEFORE BEDTIME MEDICATION LIST REVIEWED AND RECONCILED WITH THE PATIENT PAST MEDICAL HISTORY BACK PAIN, INJURY HTN HYPERLIPIDEMIA OBSTRUCTIVE SLEEP APNEA HX OF ENDOMETRIOSIS AND ABNORMAL PAP SMEARS SEASONAL ALLERGIES STAGE 3 KIDNEY DISEASE FIBROMYALGIA DEPRESSION CATARACTS BOTH EYES ALLERGIES ZONISAMIDE: ELEVATED KIDNEY LEVELS SOCIAL HISTORY GENERAL: TOBACCO USE ARE YOU A:FORMER SMOKER HOW LONG HAS IT BEEN SINCE YOU LAST SMOKED?1-5 YEARS LATEX QUESTIONNAIRE LATEX ALLERGY : HAVE YOU EVER DEVELOPED ANY TYPE OF REACTION AFTER HANDLING LATEX PRODUCTS SUCH RUBBER GLOVES, CONDOMS, DIAPHRAGMS, BALLOONS, SOCKS, OR UNDERWEAR?NO LATEX ALLERGY : HAVE YOU EVER DEVELOPED ANY TYPE OF REACTION DURING OR AFTER DENTAL APPOINTMENT, VAGINAL/RECTAL EXAMINATION, SURGICAL PROCEDURE, OR ANY OTHER EXPOSURE?NO LATEX RISK : HAVE YOU EVER HAD ANY DIFFICULTY BREATHING OR HIVES AFTER EATING OR HANDLING ANY FRUITS, OR VEGETABLES; SUCH KIWI, BANANAS, STONE FRUITS, OR CHESTNUTSNO LATEX RISK : DO YOU HAVE A PREVIOUS PERSONAL HISTORY OF MORE THAN NINE SURGERIES, SPINA BIFIDA, OR REPEATED CATHERIZATIONS? NO LATEX RISK : ARE YOU FREQUENTLY EXPOSED TO LATEX PRODUCTS IN YOUR OCCUPATION?NO DATE ASKED : 08/16/2020 ALCOHOL USE: YES OCC. ALCOHOL SCREENING DID YOU HAVE A DRINK CONTAINING ALCOHOL IN THE PAST YEAR?YES HOW OFTEN DID YOU HAVE SIX OR MORE DRINKS ON ONE OCCASION IN THE PAST YEAR?NEVER (0 POINTS) HOW MANY DRINKS DID YOU HAVE ON A TYPICAL DAY WHEN YOU WERE DRINKING IN THE PAST YEAR?1 OR 2 (0 POINTS) HOW OFTEN DID YOU HAVE A DRINK CONTAINING ALCOHOL IN THE PAST YEAR?MONTHLY OR LESS (1 POINT) POINTS1 INTERPRETATIONNEGATIVE RECREATIONAL DRUG USE DRUG USE?NO SEXUAL HX HAD SEX IN THE LAST 12 MONTHS (VAGINAL, ORAL, OR ANAL)?NO LMP:HYSTER HAVE YOU EVER HAD AN STD?NO HIV / HEP-C SCREENING HIV TEST OFFERED TO PATIENT:YES DATE OFFERED:05/31/2019 TEST ACCEPTED:NO REASON:PATIENT DECLINED BROCHURE PROVIDED TO PATIENTNO CHRISTIAN [id number] PROTESTANT LANGUAGE LANGUAGES SPOKEN:LAO LEARNING BARRIERS / SPECIAL NEEDS CHANGE FROM LAST VISIT?NO BARRIERS TO LEARNING?NO HEARING IMPAIRED?NO VISION IMPAIRED?YES :CORRECTIVE LENSES COGNITIVELY IMPAIRED?NO READINESS TO LEARN?YES LEARNING PREFERENCES?NO LEARNING CAPABILITIES PRESENT?YES EMOTIONAL BARRIERS?NO 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 DIET: REGULAR. MARITAL STATUS: SINGLE, .. OTHERS AT HOME: OTHER NON-RELATIVE. TODAY'S VISITNOTES PATIENT DESCRIBES PAIN :ACHING, HAVE IT ALL THE TIME FROM 0-10, WHAT LEVEL IS YOUR PAIN TODAY?6 PRECIPITATING FACTORS ACTIVITY MAKES IT WORSE, NIGHT TIME PAIN IS WORSE ALLEVIATING FACTORS HEATING PAD AT NIGHT - PFS REFERRAL NEEDED?NO CLERGY REFERRAL NEEDED?NO PUBLIC HEALTH REFERRAL NEEDED?NO WAS THE PROVIDER NOTIFIED OF ANY PERTINENT INFO?NO HAS THE PATIENT BEEN EDUCATED REGARDING HIS/HER PLAN OF CARE?YES HAS THE PATIENT BEEN EDUCATED REGARDING PAIN, THE RISK FOR PAIN, THE IMPORTANCE OF EFFECTIVE PAIN MANAGEMENT, AND THE PAIN ASSESSMENT PROCESS?YES HOUSING: OWNS MOBILE HOME. ADVANCE DIRECTIVE ADVANCE DIRECTIVE DISCUSSED WITH PATIENT:YES HCP MELODY JEAN BAPTISTE [phone] REVIEW OF SYSTEMS CONSTITUTIONAL: ANY RECENT FEVER NO . CHILLS NO . WEIGHT CHANGE OF UNKNOWN REASONS NO . GASTROENTEROLOGY: NEW UNEXPLAINABLE CHANGES IN BOWEL CONTROL NO . CONSTIPATION NO . GENITOURINARY: ANY NEW CHANGE IN BLADDER CONTROL? NO . NEUROLOGY: NEW ONSET DIZZINESS OR NEUROLOGICAL CHANGES NOT MENTIONED NO . NEW NUMBNESS OR PAIN PATTERNS NOT MENTIONED AND PERTINENT TO TODAY'S VISIT NO . CARDIOLOGY: NEW CHEST PRESSURE NO . PATIENT DENIES NO . RESPIRATORY: UNEXPLAINABLE COUGH NO . NEW SHORTNESS OF BREATH NO . VITAL SIGNS WT 248.8 LBS, HT 63 IN, BMI 44.07 INDEX, BP 134/63 MM HG, HR 86 /MIN, RR 18 /MIN, TEMP 97.3 F, OXYGEN SAT % 94%, SAFE IN ENV? (Y/N) YES, NA INITIALS AW 1018T.LAKHWINDER TIMOTHY. EXAMINATION GENERAL EXAMINATION: GENERALAWAKE,ALERT ,PLEASANT . PSYCHAFFECT NORMAL . LUNGS:LUNG LICEA ARE CLEAR TO AUSCULTATION BILATERALLY. GOOD MOVEMENT OF AIR . HEART:S1, S2 IN A REGULAR RATE AND RHYTHM. NO SIGNIFICANT MURMURS, RUBS OR GALLOPS NOTED . ASSESSMENTS CHRONIC PRESCRIPTION OPIATE USE - Z79.891 (PRIMARY) CERVICAL SPONDYLOSIS - M47.812 TREATMENT CHRONIC PRESCRIPTION OPIATE USE CONTINUE TRAMADOL HCL TABLET, 50 MG, 1 -2 TABLET NEEDED, ORALLY, EVERY 6 HRS MDD=6 CODE D CHRONIC PAIN CONTINUE LYRICA CAPSULE, 200 MG, 1 CAPSULE, ORALLY, 1 BID MDD2 3MOS SUPPLY CAT D CHRONIC PAIN LAB: URINE TEST GROUP SHAQUILLE KEANE 08/16/2020 11:05:12 AM > LAST DOSE :LYRICA 08/16/2020 @7AM, TRAMADOL 08/16/2020 @7AM NOTES: ISTOP REGISTRY REVIEWED AND DEMONSTRATES COMPLLIANCE. BRINGS IN MEDICATIONS WHICH IS APPROPRIATE FOR WHAT WAS DISPENSED. RECENT URINE TOXICOLOGY REVIEWED. NO UNAUTHORIZED MEDICATIONS. NO ILLICIT SUBSTANCES AND PRESCRIBED MEDICATIONS WERE PRESENT. , RISKS OF NARCOTIC/OPIOD MEDICATIONS INCLUDES BUT IS NOT LIMITED TO RISK OF DEPENDANCE/DEVELOPMENT OF ADDICTION, MOOD DISTURBANCE AND DEPRESSION, OSTEOPOROSIS, HORMONAL AND LABIDAL CHANGES, RESPIRATORY DEPRESSION AND . PATIENT IS ADVISED NOT TO DRIVE OR DRINK ALCOHOL WHILE ON THESE MEDICATIONS. PROCEDURE CODES FA211 ESTABILISHED PATIENT [facility] CHARGE DISPOSITION & COMMUNICATION FOLLOW UP 3 MONTHS (REASON: CERVICAL SPONDYLOSIS/MED MGMNT/REVIEW UTOX) ELECTRONICALLY SIGNED BY ALINA SPIVEY ON 08/17/2020 AT 08:56 AM EDT DISCLAIMER : THIS IS A VISIT SUMMARY EXTRACTED FROM THE [employer] CHART. IT IS NOT A COPY OF THE [employer] PROGRESS NOTE. VANESSAD
== END ==
LOC: M PAIN 10:15
PROVIDERS: ATTEND Nurse Practitioner Family
DX: M47.812 Spondylosis without myelopathy or radiculopathy, cervical region (principal); G89.29 Other chronic pain; G47.33 Obstructive sleep apnea (adult) (pediatric); M79.7 Fibromyalgia; Z86.59 Personal history of other mental and behavioral disorders; Z87.891 Personal history of nicotine dependence; Z88.8 Allergy status to other drugs, medicaments and biological substances; E66.01 Morbid (severe) obesity due to excess calories; Z68.41 Body mass index [BMI] 40.0-44.9, adult; Z79.82 Long term (current) use of aspirin; Z79.899 Other long term (current) drug therapy

== ENCOUNTER → 2020-11-07 | Outpatient (REF) | payer MEDICARE ==
[~2020-11-07] MED LIST changes: +GABA-283 PO; -GABA-845 PO
== END ==
LOC: M LAB REF 17:14
PROVIDERS: ATTEND Internal Medicine Nephrology
DX: N18.2 Chronic kidney disease, stage 2 (mild) (principal)

== ENCOUNTER → 2020-11-15 | Outpatient (CLI) | payer MEDICARE ==
--- NOTE | 2020-11-16 07:51 | ECWPNPC ---
PATIENT NAME: KENTON HUTCHINS : 1960 GENDER: FEMALE VISIT DATE: 11/15/2020 DISCHARGE DATE: 11/15/20 1101 VISIT LOCKED DATE TIME: PHYSICIAN: MARCO PEACE RESOURCE: MARCO PEACE REASON FOR APPOINTMENT 1. CERVICAL SPONDYLOSIS/MED MGMNT/REVIEW UTOX HISTORY OF PRESENT ILLNESS GENERAL: HERE FOR FOLLOW-UP OF CHRONIC RIGHT GREATER THAN LEFT NECK PAIN. CONTINUES TO FIND TRAMADOL AND LYRICA EFFECTIVE AT REDUCING PAIN AND KEEPING HER FUNCTIONAL. DENIES ADVERSE SIDE EFFECTS OF MEDICATION. BRINGS IN HER MEDICATION WHICH IS APPROPRIATE FOR WHAT WAS DISPENSED. - -. FALL RISK SCREENING: SCREENING : NO FALLS REPORTED IN THE LAST YEAR. PAIN SCREENING: PATIENT HAS A COMPLAINT OF ACUTE OR CHRONIC PAIN :YES LOCATION OF PAIN:NECK INTENSITY OF PAIN (SCALE OF 1 TO 10):6 WHAT DOES YOUR PAIN FEEL LIKE:ACHING, BURNING, CONTINOUS, SHOOTING DURATION:CONTINOUS, CONSTANT, ALL DAY PAIN IS INCREASED BY:ACTIVITIES PAIN IS DECREASED BY:USE OF PAIN MEDICATIONS NURSING NOTE: -. PAIN CENTER INTAKE QUESTIONS: DO YOU HAVE A HISTORY OF MRSA? :NO DO YOU TAKE A BLOOD THINNERS? :NO ASPIR-81 81 MG DO YOU HAVE ANY BLEEDING DISORDERS? :NO ANY NEW NUMBNESS OR WEAKNESS IN YOUR LEGS OR ARMS? :YES NUMBING FEELING AND SMALL SHAKE IN THE RIGHT ARM, WRIST AND HAND ANY PACEMAKER,DEFIBRILLATOR, OR DORSAL COLUMN STIMULATOR? :NO DO YOU HAVE ANY RASHES OR OPEN SORES? :NO ARE YOU ALLERGIC TO IV DYE? :NO ARE YOU DIABETIC? :NO ANY NEW PROBLEMS WITH YOUR MEDICATIONS? :NO HAVE YOU RECEIVED A VACCINE IN THE PAST 30 DAYS? :NO DO YOU PLAN TO RECEIVE A VACCINE IN THE NEXT 21 DAYS? :NO DO YOU NEED ANY PRESCRIPTION? :NO DO YOU TAKE ANY IMMUNOSUPPRESSIVE MEDICATIONS? :NO IS THERE A CHANCE YOU COULD BE ? :NO ARE YOU BREAST FEEDING? :NO CURRENT MEDICATIONS TAKING ASPIR-81 81 MG TABLET DELAYED RELEASE 1 TABLET P.O. ONCE A DAY TAKING LIPITOR 10 MG TABLET 1 TABLET ORALLY ONCE A DAY TAKING MONTELUKAST SODIUM 10 MG TABLET 1 TABLET IN THE EVENING ORALLY ONCE A DAY TAKING LISINOPRIL 10 MG TABLET 1 TABLET ORALLY ONCE A DAY TAKING TYLENOL 8 HOUR 650 MG TABLET EXTENDED RELEASE 2 TABLETS NEEDED ORALLY EVERY 8 HRS TAKING MAY USE CBD OIL ONCE DAILY TAKING TRAMADOL HCL 50 MG TABLET 1 -2 TABLET NEEDED ORALLY EVERY 6 HRS MDD=6 CODE D CHRONIC PAIN TAKING LYRICA 200 MG CAPSULE 1 CAPSULE ORALLY 1 BID MDD2 3MOS SUPPLY CAT D CHRONIC PAIN TAKING CYMBALTA 60 MG CAPSULE DELAYED RELEASE PARTICLES 1 CAPSULE ORALLY ONCE A DAY NOT-TAKING VALIUM 5 MG TABLET 1 TAB DIRECTED ORALLY 1 TAB 1/2 HR PRE PROCEDURE NOT-TAKING METOPROLOL SUCCINATE ER 50 MG TABLET EXTENDED RELEASE 24 HOUR 1 TABLET ORALLY ONCE A DAY NOT-TAKING VENTOLIN HFA 108 (90 BASE) MCG/ACT AEROSOL SOLUTION 2 PUFFS NEEDED INHALATION EVERY 4 HRS, NOTES: WEEKS AGO NOT-TAKING LIDOCAINE 5 % OINTMENT 1 APPLICATION TO AFFECTED AREA NEEDED EXTERNALLY THREE TIMES A DAY NOT-TAKING FUROSEMIDE 20 MG TABLET 1 TABLET ORALLY ONCE A DAY NOT-TAKING SOMA 350 MG TABLET 1 TABLET NEEDED ORALLY BEFORE BEDTIME MEDICATION LIST REVIEWED AND RECONCILED WITH THE PATIENT PAST MEDICAL HISTORY BACK PAIN, INJURY HTN HYPERLIPIDEMIA OBSTRUCTIVE SLEEP APNEA HX OF ENDOMETRIOSIS AND ABNORMAL PAP SMEARS SEASONAL ALLERGIES STAGE 3 KIDNEY DISEASE FIBROMYALGIA DEPRESSION CATARACTS BOTH EYES LEONIDAS 07/10/2020 ALLERGIES ZONISAMIDE: ELEVATED KIDNEY LEVELS - ALLERGY SURGICAL HISTORY PARTIAL HYSTERECTOMY 1994 BREAST BIOPSY BENIGN TUBAL LIGATION 1984 RIGHT KNEE SURGERY CHRONIC NECK PAIN SOCIAL HISTORY GENERAL: TOBACCO USE ARE YOU A:FORMER SMOKER HOW LONG HAS IT BEEN SINCE YOU LAST SMOKED?1-5 YEARS LATEX QUESTIONNAIRE LATEX ALLERGY : HAVE YOU EVER DEVELOPED ANY TYPE OF REACTION AFTER HANDLING LATEX PRODUCTS SUCH RUBBER GLOVES, CONDOMS, DIAPHRAGMS, BALLOONS, SOCKS, OR UNDERWEAR?NO LATEX ALLERGY : HAVE YOU EVER DEVELOPED ANY TYPE OF REACTION DURING OR AFTER DENTAL APPOINTMENT, VAGINAL/RECTAL EXAMINATION, SURGICAL PROCEDURE, OR ANY OTHER EXPOSURE?NO LATEX RISK : HAVE YOU EVER HAD ANY DIFFICULTY BREATHING OR HIVES AFTER EATING OR HANDLING ANY FRUITS, OR VEGETABLES; SUCH KIWI, BANANAS, STONE FRUITS, OR CHESTNUTSNO LATEX RISK : DO YOU HAVE A PREVIOUS PERSONAL HISTORY OF MORE THAN NINE SURGERIES, SPINA BIFIDA, OR REPEATED CATHERIZATIONS? NO LATEX RISK : ARE YOU FREQUENTLY EXPOSED TO LATEX PRODUCTS IN YOUR OCCUPATION?NO DATE ASKED : 11/15/2020 ALCOHOL USE: YES OCC. ALCOHOL SCREENING DID YOU HAVE A DRINK CONTAINING ALCOHOL IN THE PAST YEAR?YES HOW OFTEN DID YOU HAVE SIX OR MORE DRINKS ON ONE OCCASION IN THE PAST YEAR?NEVER (0 POINTS) HOW MANY DRINKS DID YOU HAVE ON A TYPICAL DAY WHEN YOU WERE DRINKING IN THE PAST YEAR?1 OR 2 (0 POINTS) HOW OFTEN DID YOU HAVE A DRINK CONTAINING ALCOHOL IN THE PAST YEAR?MONTHLY OR LESS (1 POINT) POINTS1 INTERPRETATIONNEGATIVE RECREATIONAL DRUG USE DRUG USE?NO SEXUAL HX HAD SEX IN THE LAST 12 MONTHS (VAGINAL, ORAL, OR ANAL)?NO LMP:HYSTER HAVE YOU EVER HAD AN STD?NO HIV / HEP-C SCREENING HIV TEST OFFERED TO PATIENT:YES DATE OFFERED:05/31/2019 TEST ACCEPTED:NO REASON:PATIENT DECLINED BROCHURE PROVIDED TO PATIENTNO TAOISM [id number] QUAKER LANGUAGE LANGUAGES SPOKEN:HUNGARIAN LEARNING BARRIERS / SPECIAL NEEDS CHANGE FROM LAST VISIT?NO BARRIERS TO LEARNING?NO HEARING IMPAIRED?YES : NOT SURE VISION IMPAIRED?YES :CORRECTIVE LENSES COGNITIVELY IMPAIRED?NO READINESS TO LEARN?YES LEARNING PREFERENCES?NO LEARNING CAPABILITIES PRESENT?YES EMOTIONAL BARRIERS?NO SPECIAL DEVICES?YES :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 DIET: REGULAR. MARITAL STATUS: SINGLE, .. OTHERS AT HOME: OTHER NON-RELATIVE. TODAY'S VISITNOTES PATIENT DESCRIBES PAIN :ACHING, HAVE IT ALL THE TIME FROM 0-10, WHAT LEVEL IS YOUR PAIN TODAY?6 PRECIPITATING FACTORS ACTIVITY MAKES IT WORSE, NIGHT TIME PAIN IS WORSE ALLEVIATING FACTORS HEATING PAD AT NIGHT - PFS REFERRAL NEEDED?NO CLERGY REFERRAL NEEDED?NO PUBLIC HEALTH REFERRAL NEEDED?NO WAS THE PROVIDER NOTIFIED OF ANY PERTINENT INFO?NO HAS THE PATIENT BEEN EDUCATED REGARDING HIS/HER PLAN OF CARE?YES HAS THE PATIENT BEEN EDUCATED REGARDING PAIN, THE RISK FOR PAIN, THE IMPORTANCE OF EFFECTIVE PAIN MANAGEMENT, AND THE PAIN ASSESSMENT PROCESS?YES HOUSING: OWNS MOBILE HOME. ADVANCE DIRECTIVE ADVANCE DIRECTIVE DISCUSSED WITH PATIENT:YES HCP MELODY JEAN BAPTISTE [phone] HOSPITALIZATION/MAJOR DIAGNOSTIC PROCEDURE [facility]- BILATERAL KNEE PAIN, NO NEW MEDICATIONS- HAS APPT WITH [facility] SCHEDULED FOR 11/15/1811/2018 REVIEW OF SYSTEMS CONSTITUTIONAL: ANY RECENT FEVER NO . CHILLS NO . WEIGHT CHANGE OF UNKNOWN REASONS NO . GASTROENTEROLOGY: NEW UNEXPLAINABLE CHANGES IN BOWEL CONTROL NO . CONSTIPATION NO . GENITOURINARY: ANY NEW CHANGE IN BLADDER CONTROL? NO . NEUROLOGY: NEW ONSET DIZZINESS OR NEUROLOGICAL CHANGES NOT MENTIONED NO . NEW NUMBNESS OR PAIN PATTERNS NOT MENTIONED AND PERTINENT TO TODAY'S VISIT NO . CARDIOLOGY: NEW CHEST PRESSURE NO . PATIENT DENIES NO . RESPIRATORY: UNEXPLAINABLE COUGH NO . NEW SHORTNESS OF BREATH NO . VITAL SIGNS WT 255.4 LBS, HT 63 IN, BMI 45.24 INDEX, BP 142/64 MM HG, HR 95 /MIN, RR 18 /MIN, TEMP 98.1 F, OXYGEN SAT % 94%, SAFE IN ENV? (Y/N) YES, NA INITIALS SC 10:17T.LAKHWINDER AGUIRRE. EXAMINATION GENERAL EXAMINATION: GENERALAWAKE,ALERT ,PLEASANT . PSYCHAFFECT NORMAL . LUNGS:LUNG LICEA ARE CLEAR TO AUSCULTATION BILATERALLY. GOOD MOVEMENT OF AIR . HEART:S1, S2 IN A REGULAR RATE AND RHYTHM. NO SIGNIFICANT MURMURS, RUBS OR GALLOPS NOTED . ASSESSMENTS CHRONIC PRESCRIPTION OPIATE USE - Z79.891 (PRIMARY) LOW BACK PAIN AT MULTIPLE SITES - M54.5 TREATMENT CHRONIC PRESCRIPTION OPIATE USE CONTINUE LYRICA CAPSULE, 200 MG, 1 CAPSULE, ORALLY, 1 BID MDD2 3MOS SUPPLY CAT D CHRONIC PAIN CONTINUE TRAMADOL HCL TABLET, 50 MG, 1 -2 TABLET NEEDED, ORALLY, EVERY 6 HRS MDD=6 CODE D CHRONIC PAIN START COLACE CAPSULE, 100 MG, 1 CAPSULE NEEDED, ORALLY, BID, 90 DAY(S), 180 CAPSULE, REFILLS 1 NOTES: ISTOP REGISTRY REVIEWED AND DEMONSTRATES COMPLLIANCE. BRINGS IN MEDICATIONS WHICH IS APPROPRIATE FOR WHAT WAS DISPENSED. RECENT URINE TOXICOLOGY REVIEWED. NO UNAUTHORIZED MEDICATIONS. NO ILLICIT SUBSTANCES AND PRESCRIBED MEDICATIONS WERE PRESENT. , RISKS OF NARCOTIC/OPIOD MEDICATIONS INCLUDES BUT IS NOT LIMITED TO RISK OF DEPENDANCE/DEVELOPMENT OF ADDICTION, MOOD DISTURBANCE AND DEPRESSION, OSTEOPOROSIS, HORMONAL AND LABIDAL CHANGES, RESPIRATORY DEPRESSION AND . PATIENT IS ADVISED NOT TO DRIVE OR DRINK ALCOHOL WHILE ON THESE MEDICATIONS. PROCEDURE CODES FA211 ESTABILISHED PATIENT [facility] FACILITY CHARGE DISPOSITION & COMMUNICATION FOLLOW UP 3 MONTHS (REASON: MEDICATION MANAGEMENT/URINE TOXICOLOGY) ELECTRONICALLY SIGNED BY ALINA SPIVEY ON 11/15/2020 AT 12:47 PM EDT DISCLAIMER : THIS IS A VISIT SUMMARY EXTRACTED FROM THE [employer] CHART. IT IS NOT A COPY OF THE [employer] PROGRESS NOTE. [place]
== END ==
LOC: M PAIN 10:15
PROVIDERS: ATTEND Nurse Practitioner Family
DX: M54.5 Low back pain (principal); G89.29 Other chronic pain; G47.33 Obstructive sleep apnea (adult) (pediatric); M79.7 Fibromyalgia; Z86.59 Personal history of other mental and behavioral disorders; Z87.891 Personal history of nicotine dependence; Z88.8 Allergy status to other drugs, medicaments and biological substances; E66.01 Morbid (severe) obesity due to excess calories; Z68.42 Body mass index [BMI] 45.0-49.9, adult; Z79.82 Long term (current) use of aspirin; Z79.899 Other long term (current) drug therapy

== ENCOUNTER → 2021-02-14 | Outpatient (CLI) | payer MEDICARE | LOC: M PAIN 09:30 | PROVIDERS: ATTEND Nurse Practitioner Family | DX: M54.2 Cervicalgia (principal); G89.29 Other chronic pain; G47.33 Obstructive sleep apnea (adult) (pediatric); M79.7 Fibromyalgia; Z86.59 Personal history of other mental and behavioral disorders; Z87.891 Personal history of nicotine dependence; Z88.8 Allergy status to other drugs, medicaments and biological substances; E66.01 Morbid (severe) obesity due to excess calories; Z68.42 Body mass index [BMI] 45.0-49.9, adult; Z79.82 Long term (current) use of aspirin; Z79.899 Other long term (current) drug therapy ==

== ENCOUNTER → 2021-06-11 | Outpatient (REF) | payer MEDICARE | LOC: M LAB REF 17:20 | PROVIDERS: ATTEND Nurse Practitioner Family | DX: N18.31 Chronic kidney disease, stage 3a (principal) ==

== ENCOUNTER → 2021-07-31 | Outpatient (CLI) | payer MEDICARE | LOC: M PAIN 10:15 | PROVIDERS: ATTEND Nurse Practitioner Family | DX: M50.10 Cervical disc disorder with radiculopathy, unspecified cervical region (principal); I12.9 Hypertensive chronic kidney disease with stage 1 through stage 4 chronic kidney disease, or unspecified chronic kidney disease; E78.5 Hyperlipidemia, unspecified; G47.33 Obstructive sleep apnea (adult) (pediatric); N18.30 Chronic kidney disease, stage 3 unspecified; M79.7 Fibromyalgia; F32.A Depression, unspecified; H26.9 Unspecified cataract; Z87.891 Personal history of nicotine dependence; Z79.891 Long term (current) use of opiate analgesic; Z79.82 Long term (current) use of aspirin; Z79.899 Other long term (current) drug therapy; Z88.8 Allergy status to other drugs, medicaments and biological substances ==

== ENCOUNTER → 2021-08-26 | Outpatient (CLI) | payer MEDICARE | LOC: M WHC 07:53 | PROVIDERS: ATTEND Advanced Practice Midwife | DX: Z12.31 Encounter for screening mammogram for malignant neoplasm of breast (principal) ==

== ENCOUNTER → 2021-09-05 | Outpatient (CLI) | payer MEDICARE | LOC: M PLAIMG 07:53 | PROVIDERS: ATTEND Nurse Practitioner Family | DX: M50.11 Cervical disc disorder with radiculopathy, high cervical region (principal); M50.122 Cervical disc disorder at C5-C6 level with radiculopathy; M50.123 Cervical disc disorder at C6-C7 level with radiculopathy ==

== ENCOUNTER → 2021-09-09 | Outpatient (CLI) | payer MEDICARE | LOC: M PAIN 10:30 | PROVIDERS: ATTEND Nurse Practitioner Family | DX: M50.10 Cervical disc disorder with radiculopathy, unspecified cervical region (principal); G89.29 Other chronic pain; G47.33 Obstructive sleep apnea (adult) (pediatric); M79.7 Fibromyalgia; Z86.59 Personal history of other mental and behavioral disorders; Z87.891 Personal history of nicotine dependence; Z88.8 Allergy status to other drugs, medicaments and biological substances; E66.01 Morbid (severe) obesity due to excess calories; Z68.42 Body mass index [BMI] 45.0-49.9, adult; Z79.82 Long term (current) use of aspirin; Z79.899 Other long term (current) drug therapy ==

== ENCOUNTER → 2021-12-17 | Outpatient (CLI) | payer MEDICARE ==
[2021-12-17 12:10] LABS: HEMATOCRIT 34.4 % (36.0-47.0); HEMOGLOBIN 11.2 g/dl (12.0-15.5); MEAN CORPUSCULAR HEMOGLOBIN 29.2 pg (27.0-33.0); MEAN CORPUSCULAR HGB CONC 32.6 g/dl (32.0-36.5); MEAN CORPUSCULAR VOLUME 89.8 fl (80.0-96.0); PLATELET COUNT, AUTOMATED 257 10^3/uL (150-450); RED BLOOD COUNT 3.83 10^6/uL (4.00-5.40)
[2021-12-17 12:45] LABS: ALBUMIN 3.3 GM/DL (3.2-5.2); BILIRUBIN,TOTAL 0.5 MG/DL (0.2-1.0); CALCIUM LEVEL 9.2 MG/DL (8.8-10.2); CREATININE FOR GFR 1.28 MG/DL (0.55-1.30); POTASSIUM SERUM 3.8 MEQ/L (3.5-5.1); TOTAL PROTEIN 7.1 GM/DL (6.4-8.2)
== END ==
LOC: M WUC 09:17
PROVIDERS: ATTEND Student in an Organized Health Care Education/Training Program
DX: R11.2 Nausea with vomiting, unspecified (principal); R30.0 Dysuria

== ENCOUNTER → 2022-01-15 | Outpatient (CLI) | payer MEDICARE | LOC: M PAIN 11:15 | PROVIDERS: ATTEND Nurse Practitioner Family | DX: M50.10 Cervical disc disorder with radiculopathy, unspecified cervical region (principal); G89.29 Other chronic pain; I10 Essential (primary) hypertension; G47.33 Obstructive sleep apnea (adult) (pediatric); M79.7 Fibromyalgia; Z86.59 Personal history of other mental and behavioral disorders; Z87.891 Personal history of nicotine dependence; Z88.8 Allergy status to other drugs, medicaments and biological substances; E66.01 Morbid (severe) obesity due to excess calories; Z68.42 Body mass index [BMI] 45.0-49.9, adult; Z79.82 Long term (current) use of aspirin; Z79.899 Other long term (current) drug therapy ==

== ENCOUNTER → 2022-03-06 | Outpatient (CLI) | payer MEDICARE | LOC: M LABSMTC 11:08 | PROVIDERS: ATTEND Anesthesiology | DX: Z01.812 Encounter for preprocedural laboratory examination (principal); Z20.822 Contact with and (suspected) exposure to COVID-19 ==

== ENCOUNTER → 2022-03-11 | Outpatient (CLI) | payer MEDICARE ==
[~2022-03-11] MED LIST changes: +ISOVUE-M 300 61% 15ML VIAL As Ordered ONE; +LIDOCAINE 1% SDV 30ML VIAL As Ordered ONE; +NORCO, ANEXSIA 5/325MG TABLET (HYDROcodone/ACETAMINOPHEN) As Ordered ONE; +diazePAM 5MG TABLET As Ordered ONE; +methylPREDNISolone SUSP 40MG/ML 1ML VIAL (DEPO MEDROL) As Ordered ONE
== END ==
LOC: M PAIN 08:00
PROVIDERS: ATTEND Anesthesiology
DX: M50.13 Cervical disc disorder with radiculopathy, cervicothoracic region (principal); G89.29 Other chronic pain; I10 Essential (primary) hypertension; G47.33 Obstructive sleep apnea (adult) (pediatric); M79.7 Fibromyalgia; Z86.59 Personal history of other mental and behavioral disorders; Z87.891 Personal history of nicotine dependence; Z88.8 Allergy status to other drugs, medicaments and biological substances; E66.01 Morbid (severe) obesity due to excess calories; Z68.42 Body mass index [BMI] 45.0-49.9, adult; Z79.82 Long term (current) use of aspirin; Z79.899 Other long term (current) drug therapy
CPT/HCPCS: 62321; J1030; Q9967

== ENCOUNTER → 2022-03-26 | Outpatient (CLI) | payer MEDICARE ==
[~2022-03-26] MED LIST changes: -ISOVUE-M 300 61% 15ML VIAL As Ordered ONE; -LIDOCAINE 1% SDV 30ML VIAL As Ordered ONE; -NORCO, ANEXSIA 5/325MG TABLET (HYDROcodone/ACETAMINOPHEN) As Ordered ONE; -diazePAM 5MG TABLET As Ordered ONE; -methylPREDNISolone SUSP 40MG/ML 1ML VIAL (DEPO MEDROL) As Ordered ONE
== END ==
LOC: M PAIN 10:45
PROVIDERS: ATTEND Anesthesiology
DX: M50.10 Cervical disc disorder with radiculopathy, unspecified cervical region (principal); G89.29 Other chronic pain; I10 Essential (primary) hypertension; G47.33 Obstructive sleep apnea (adult) (pediatric); M79.7 Fibromyalgia; Z86.59 Personal history of other mental and behavioral disorders; Z87.891 Personal history of nicotine dependence; Z88.8 Allergy status to other drugs, medicaments and biological substances; Z79.82 Long term (current) use of aspirin; Z79.899 Other long term (current) drug therapy

== ENCOUNTER → 2022-04-29 | Outpatient (CLI) | payer MEDICARE | LOC: M PAIN 13:00 → M TMPAIN 13:00 | PROVIDERS: ATTEND Anesthesiology | DX: M50.10 Cervical disc disorder with radiculopathy, unspecified cervical region (principal); G89.29 Other chronic pain; G47.33 Obstructive sleep apnea (adult) (pediatric); M79.7 Fibromyalgia; Z86.59 Personal history of other mental and behavioral disorders; Z87.891 Personal history of nicotine dependence; Z88.8 Allergy status to other drugs, medicaments and biological substances; Z79.82 Long term (current) use of aspirin; Z79.899 Other long term (current) drug therapy ==

== ENCOUNTER → 2022-06-12 | Outpatient (REF) | payer MEDICARE ==
[2022-06-12 20:16] LABS: APPEARANCE, URINE MANUAL CLEAR (CLEAR); COLOR, URINE MANUAL YELLOW (YELLOW)
[2022-06-12 20:17] LABS: BILIRUBIN, URINE MANUAL NEGATIVE (NEGATIVE); BLOOD URINE MANUAL NEGATIVE (NEGATIVE); GLUCOSE, URINE (UA) MANUAL NEGATIVE (NEGATIVE); KETONE, URINE MANUAL NEGATIVE (NEGATIVE); LEUKOCYTE ESTERASE, URINE MAN NEGATIVE (NEGATIVE); NITRITE, URINE MANUAL NEGATIVE (NEGATIVE); PROTEIN, URINE MANUAL NEGATIVE (NEGATIVE); UROBILINOGEN, URINE MANUAL NORMAL (NORMAL)
== END ==
LOC: M LAB REF 17:11
PROVIDERS: ATTEND Nurse Practitioner Family
DX: R31.29 Other microscopic hematuria (principal)

== ENCOUNTER → 2022-07-31 | Outpatient (CLI) | payer MEDICARE | LOC: M PAIN 13:45 | PROVIDERS: ATTEND Nurse Practitioner Family | DX: M50.10 Cervical disc disorder with radiculopathy, unspecified cervical region (principal); G89.29 Other chronic pain; I10 Essential (primary) hypertension; G47.33 Obstructive sleep apnea (adult) (pediatric); M79.7 Fibromyalgia; Z86.59 Personal history of other mental and behavioral disorders; Z87.891 Personal history of nicotine dependence; Z88.8 Allergy status to other drugs, medicaments and biological substances; E66.01 Morbid (severe) obesity due to excess calories; Z68.42 Body mass index [BMI] 45.0-49.9, adult; Z79.82 Long term (current) use of aspirin; Z79.899 Other long term (current) drug therapy ==

== ENCOUNTER → 2022-09-22 | Outpatient (CLI) | payer MEDICARE | LOC: M PAIN 11:00 | PROVIDERS: ATTEND Nurse Practitioner Family | DX: M50.10 Cervical disc disorder with radiculopathy, unspecified cervical region (principal); G89.29 Other chronic pain; I10 Essential (primary) hypertension; G47.33 Obstructive sleep apnea (adult) (pediatric); M79.7 Fibromyalgia; Z86.59 Personal history of other mental and behavioral disorders; Z87.891 Personal history of nicotine dependence; Z88.8 Allergy status to other drugs, medicaments and biological substances; E66.01 Morbid (severe) obesity due to excess calories; Z68.42 Body mass index [BMI] 45.0-49.9, adult; Z79.82 Long term (current) use of aspirin; Z79.899 Other long term (current) drug therapy ==

== ENCOUNTER → 2023-01-26 | Outpatient (CLI) | payer MEDICARE ==
[~2023-01-26] MED LIST changes: -GABA-283 PO; +GABA-284 PO
== END ==
LOC: M PAIN 15:00
PROVIDERS: ATTEND Nurse Practitioner Family
DX: M50.10 Cervical disc disorder with radiculopathy, unspecified cervical region (principal); G89.29 Other chronic pain; M79.7 Fibromyalgia; Z87.891 Personal history of nicotine dependence; Z88.8 Allergy status to other drugs, medicaments and biological substances; E66.01 Morbid (severe) obesity due to excess calories; Z68.42 Body mass index [BMI] 45.0-49.9, adult; Z79.82 Long term (current) use of aspirin; Z79.899 Other long term (current) drug therapy

== ENCOUNTER → 2023-03-24 | Outpatient (CLI) | payer MEDICARE | LOC: M PAIN 17:30 | PROVIDERS: ATTEND Nurse Practitioner Family | DX: M50.10 Cervical disc disorder with radiculopathy, unspecified cervical region (principal); G89.29 Other chronic pain; Z87.891 Personal history of nicotine dependence; Z88.8 Allergy status to other drugs, medicaments and biological substances; E66.01 Morbid (severe) obesity due to excess calories; Z68.42 Body mass index [BMI] 45.0-49.9, adult; Z79.82 Long term (current) use of aspirin; Z79.899 Other long term (current) drug therapy ==

== ENCOUNTER → 2023-04-29 | Outpatient (REF) | payer MEDICARE | LOC: M SFHCWAGY 12:58 | PROVIDERS: ATTEND Nurse Practitioner Family | DX: Z12.72 Encounter for screening for malignant neoplasm of vagina (principal); N95.2 Postmenopausal atrophic vaginitis | CPT/HCPCS: 87624; G0123 ==

== ENCOUNTER → 2023-04-29 | Outpatient (CLI) | payer MEDICARE | LOC: M WHC 07:51 | PROVIDERS: ATTEND Nurse Practitioner Family | DX: Z12.31 Encounter for screening mammogram for malignant neoplasm of breast (principal) ==

== ENCOUNTER → 2023-06-04 | Outpatient (CLI) | payer MEDICARE ==
[~2023-06-04] MED LIST changes: +ISOVUE-M 300 61% 15ML VIAL As Ordered ONE; +LIDOCAINE 1% SDV 30ML VIAL As Ordered ONE; +NORCO, ANEXSIA 5/325MG TABLET (HYDROcodone/ACETAMINOPHEN) As Ordered ONE; +diazePAM 5MG TABLET As Ordered ONE; +methylPREDNISolone SUSP 40MG/ML 1ML VIAL (DEPO MEDROL) As Ordered ONE
== END ==
LOC: M PAIN 14:30
PROVIDERS: ATTEND Anesthesiology
DX: M50.13 Cervical disc disorder with radiculopathy, cervicothoracic region (principal); G89.29 Other chronic pain; Z87.891 Personal history of nicotine dependence; Z88.8 Allergy status to other drugs, medicaments and biological substances; E66.01 Morbid (severe) obesity due to excess calories; Z68.42 Body mass index [BMI] 45.0-49.9, adult; Z79.82 Long term (current) use of aspirin; Z79.899 Other long term (current) drug therapy
CPT/HCPCS: 62323; J1030; Q9967

== ENCOUNTER → 2023-06-19 | Outpatient (CLI) | payer MEDICARE ==
[~2023-06-19] MED LIST changes: -ISOVUE-M 300 61% 15ML VIAL As Ordered ONE; -LIDOCAINE 1% SDV 30ML VIAL As Ordered ONE; -NORCO, ANEXSIA 5/325MG TABLET (HYDROcodone/ACETAMINOPHEN) As Ordered ONE; -diazePAM 5MG TABLET As Ordered ONE; -methylPREDNISolone SUSP 40MG/ML 1ML VIAL (DEPO MEDROL) As Ordered ONE
== END ==
LOC: M RAD 12:34
PROVIDERS: ATTEND Nurse Practitioner Family
DX: N18.31 Chronic kidney disease, stage 3a (principal); K76.0 Fatty (change of) liver, not elsewhere classified

== ENCOUNTER → 2023-07-03 | Outpatient (CLI) | payer MEDICARE | LOC: M PAIN 10:45 | PROVIDERS: ATTEND Nurse Practitioner Family | DX: M50.10 Cervical disc disorder with radiculopathy, unspecified cervical region (principal); Z79.891 Long term (current) use of opiate analgesic; I10 Essential (primary) hypertension; E78.5 Hyperlipidemia, unspecified; G47.30 Sleep apnea, unspecified; Z79.02 Long term (current) use of antithrombotics/antiplatelets; Z79.51 Long term (current) use of inhaled steroids; Z79.82 Long term (current) use of aspirin; Z79.899 Other long term (current) drug therapy; Z88.1 Allergy status to other antibiotic agents ==

== ENCOUNTER → 2023-08-03 | Outpatient (CLI) | payer MEDICARE | LOC: M PAIN 11:00 | PROVIDERS: ATTEND Nurse Practitioner Family | DX: M50.10 Cervical disc disorder with radiculopathy, unspecified cervical region (principal); Z79.891 Long term (current) use of opiate analgesic; Z79.02 Long term (current) use of antithrombotics/antiplatelets; Z79.82 Long term (current) use of aspirin; Z79.899 Other long term (current) drug therapy; I10 Essential (primary) hypertension; E78.5 Hyperlipidemia, unspecified; M79.7 Fibromyalgia ==

== ENCOUNTER → 2023-10-19 | Outpatient (CLI) | payer MEDICARE | LOC: M PAIN 14:30 | PROVIDERS: ATTEND Nurse Practitioner Family | DX: M50.10 Cervical disc disorder with radiculopathy, unspecified cervical region (principal); I10 Essential (primary) hypertension; G47.30 Sleep apnea, unspecified; M79.7 Fibromyalgia; Z79.02 Long term (current) use of antithrombotics/antiplatelets; Z79.1 Long term (current) use of non-steroidal anti-inflammatories (NSAID); Z79.82 Long term (current) use of aspirin; Z79.899 Other long term (current) drug therapy; Z88.6 Allergy status to analgesic agent; Z88.8 Allergy status to other drugs, medicaments and biological substances ==

== ENCOUNTER → 2023-12-01 | Outpatient (CLI) | payer MEDICARE | LOC: M PAIN 14:45 | PROVIDERS: ATTEND Nurse Practitioner Family | DX: M50.10 Cervical disc disorder with radiculopathy, unspecified cervical region (principal); G89.29 Other chronic pain; I12.9 Hypertensive chronic kidney disease with stage 1 through stage 4 chronic kidney disease, or unspecified chronic kidney disease; E78.5 Hyperlipidemia, unspecified; G47.33 Obstructive sleep apnea (adult) (pediatric); N18.30 Chronic kidney disease, stage 3 unspecified; M79.7 Fibromyalgia; F32.A Depression, unspecified; H26.9 Unspecified cataract; Z87.891 Personal history of nicotine dependence; Z79.82 Long term (current) use of aspirin; Z79.891 Long term (current) use of opiate analgesic; Z79.899 Other long term (current) drug therapy; Z88.8 Allergy status to other drugs, medicaments and biological substances ==

== ENCOUNTER → 2023-12-09 | Outpatient (CLI) | payer MEDICARE | LOC: M RAD 13:12 | PROVIDERS: ATTEND Nurse Practitioner Adult Health | DX: Z12.2 Encounter for screening for malignant neoplasm of respiratory organs (principal); F17.211 Nicotine dependence, cigarettes, in remission; J47.9 Bronchiectasis, uncomplicated; J98.11 Atelectasis; I51.7 Cardiomegaly; I70.0 Atherosclerosis of aorta ==

== ENCOUNTER → 2023-12-12 | Outpatient (CLI) | payer MEDICARE, MEDICAID | LOC: M RAD 08:43 | PROVIDERS: ATTEND Nurse Practitioner Family | DX: M50.10 Cervical disc disorder with radiculopathy, unspecified cervical region (principal); M47.22 Other spondylosis with radiculopathy, cervical region ==

== ENCOUNTER 2023-12-23 10:42 | Day surgery (SDC) | payer MEDICARE, MEDICAID ==
[~2023-12-23] VITALS: Ht 160 cm; Wt 125.2 kg
[~2023-12-23 10:42] MED LIST changes: +ACET-897 PO; +ATOR1TAB21 PO; +LEVOTAB10 PO; +LISI30TA4 PO; +METH-1164 PO; +MONT10TA97 PO; +PHENYLEPHRINE 10% OPHTH SOL 5ML OD PRN; +PREG100CA PO; +TRAM50TA2 PO
[2023-12-23] MEDS: OFLOXACIN 0.3 % (OCUFLOX) OPTH SOL 5ML OD ONE (11:05)
[2023-12-23] MEDS: ATROPINE SULFATE 1% OPHTH SOLN 2ML BTL OD SCH (11:06)
[2023-12-23] MEDS: TROPICAMIDE 1% OPHTH SOLN 15ML OD SCH (11:06)
[2023-12-23] MEDS: PHENYLEPHRINE 2.5% OPHTH SOL 2ML OD SCH (11:06)
[2023-12-23] MEDS: LIDOCAINE 3.5 % 1ML OPHTH TOPICAL GEL OU ONE (11:06)
[2023-12-23] MEDS ORDERED: MIDAZOLAM INJ 2MG/2ML VIAL As Ordered ONE (11:43)
[2023-12-23] MEDS ORDERED: fentaNYL 100 MCG/2 ML INJECTION As Ordered ONE (11:44)
[2023-12-23] MEDS: CEFUROXIME 1MG/0.1ML INTRACAMERAL INJ As Ordered ONE (12:06)
[2023-12-23] MEDS: BSS IRRIG/VANCO(10MG)/TOBRA(5MG)/EPINEPH(1:1000-0.5CC)500ML BAG-ORONLY As Ordered ONE (12:06)
[2023-12-23] MEDS: LIDOCAINE 1% SDV 5ML VIAL As Ordered ONE (12:06)
[2023-12-23 12:15] VITALS: BP 151/75; TEMP 97.2; O2SAT 96
== END 2023-12-23 12:32 | disposition home or self-care (01) ==
LOC: M SDC 10:42
PROVIDERS: ATTEND Ophthalmology
DX: H25.11 Age-related nuclear cataract, right eye (principal); I12.9 Hypertensive chronic kidney disease with stage 1 through stage 4 chronic kidney disease, or unspecified chronic kidney disease; N18.4 Chronic kidney disease, stage 4 (severe); E78.00 Pure hypercholesterolemia, unspecified; G47.30 Sleep apnea, unspecified; Z79.899 Other long term (current) drug therapy; Z87.891 Personal history of nicotine dependence; Z90.710 Acquired absence of both cervix and uterus
CPT/HCPCS: 66984; J0697; J2250; J3010; V2632

== ENCOUNTER 2024-01-27 06:07 | Day surgery (SDC) | payer MEDICARE, MEDICAID ==
[~2024-01-27] VITALS: Ht 160 cm; Wt 123.4 kg
[~2024-01-27 06:07] MED LIST changes: -PHENYLEPHRINE 10% OPHTH SOL 5ML OD PRN; +PHENYLEPHRINE 10% OPHTH SOL 5ML OS PRN
[2024-01-27] MEDS ORDERED: fentaNYL 100 MCG/2 ML INJECTION As Ordered ONE (07:00)
[2024-01-27] MEDS ORDERED: MIDAZOLAM INJ 2MG/2ML VIAL As Ordered ONE (07:01)
[2024-01-27] MEDS: ATROPINE SULFATE 1% OPHTH SOLN 2ML BTL OS SCH (07:04)
[2024-01-27] MEDS: OFLOXACIN 0.3 % (OCUFLOX) OPTH SOL 5ML OS ONE (07:04)
[2024-01-27] MEDS: LIDOCAINE 3.5 % 1ML OPHTH TOPICAL GEL OU ONE (07:04)
[2024-01-27] MEDS: PHENYLEPHRINE 2.5% OPHTH SOL 2ML OS SCH (07:05)
[2024-01-27] MEDS: TROPICAMIDE 1% OPHTH SOLN 15ML OS SCH (07:05)
[2024-01-27] MEDS: BSS IRRIG/VANCO(10MG)/TOBRA(5MG)/EPINEPH(1:1000-0.5CC)500ML BAG-ORONLY As Ordered ONE (08:12)
[2024-01-27] MEDS: LIDOCAINE 1% SDV 5ML VIAL As Ordered ONE (08:14)
[2024-01-27] MEDS: CEFUROXIME 1MG/0.1ML INTRACAMERAL INJ As Ordered ONE (08:19)
[2024-01-27 08:24] VITALS: BP 136/66; TEMP 96.8; O2SAT 96
== END 2024-01-27 08:36 | disposition home or self-care (01) ==
LOC: M SDC 06:07
PROVIDERS: ATTEND Ophthalmology
DX: H25.12 Age-related nuclear cataract, left eye (principal); I10 Essential (primary) hypertension; E78.5 Hyperlipidemia, unspecified; F32.A Depression, unspecified; G47.30 Sleep apnea, unspecified; N18.4 Chronic kidney disease, stage 4 (severe); Z79.899 Other long term (current) drug therapy
CPT/HCPCS: 66984; J0697; J2250; J3010; V2632

== ENCOUNTER → 2024-02-01 | Outpatient (CLI) | payer MEDICARE ==
[~2024-02-01] MED LIST changes: +GABA-1172 PO; -GABA-282 PO; -PHENYLEPHRINE 10% OPHTH SOL 5ML OS PRN
== END ==
LOC: M PAIN 11:45
PROVIDERS: ATTEND Nurse Practitioner Family
DX: M50.10 Cervical disc disorder with radiculopathy, unspecified cervical region (principal); Z79.891 Long term (current) use of opiate analgesic; G89.29 Other chronic pain; I12.9 Hypertensive chronic kidney disease with stage 1 through stage 4 chronic kidney disease, or unspecified chronic kidney disease; E78.5 Hyperlipidemia, unspecified; G47.33 Obstructive sleep apnea (adult) (pediatric); N18.30 Chronic kidney disease, stage 3 unspecified; M79.7 Fibromyalgia; F32.A Depression, unspecified; Z87.891 Personal history of nicotine dependence; Z79.82 Long term (current) use of aspirin; Z79.899 Other long term (current) drug therapy; Z88.8 Allergy status to other drugs, medicaments and biological substances

== ENCOUNTER → 2024-04-12 | Outpatient (CLI) | payer MEDICARE, MEDICAID | LOC: M PAIN 14:30 | PROVIDERS: ATTEND Nurse Practitioner Family | DX: M50.10 Cervical disc disorder with radiculopathy, unspecified cervical region (principal); Z79.891 Long term (current) use of opiate analgesic; G89.29 Other chronic pain; I12.9 Hypertensive chronic kidney disease with stage 1 through stage 4 chronic kidney disease, or unspecified chronic kidney disease; E78.5 Hyperlipidemia, unspecified; G47.33 Obstructive sleep apnea (adult) (pediatric); N18.30 Chronic kidney disease, stage 3 unspecified; M79.7 Fibromyalgia; F32.A Depression, unspecified; Z87.891 Personal history of nicotine dependence; Z79.82 Long term (current) use of aspirin; Z79.899 Other long term (current) drug therapy; Z88.8 Allergy status to other drugs, medicaments and biological substances ==

== ENCOUNTER → 2025-03-15 | Outpatient (CLI) | payer MEDICARE, OTHER ==
[~2025-03-15] MED LIST changes: +CIPR-249 PO; +CVS1CAP2 PO; +LISI40TA10; +METR-265 PO; +ONDA-282 PO; +PREG-35 PO; -PREG100CA PO; +SUMA100T2
== END ==
LOC: M WHC 13:49
DX: Z13.820 Encounter for screening for osteoporosis (principal)